=== PATIENT | female | born 1985 | race Caucasian/White ===

== ENCOUNTER 2016-12-08 00:34 | Inpatient (IN) | payer OTHER ==
[2016-12-08 01:16] VITALS: BMI 32.1
--- NOTE | 2016-12-08 02:46 | PDOC ---
History of Present Illness - General Chief Complaint: Edema Stated Complaint: SWOLLEN NECK Time Seen by Provider: 12/08/16 01:24 History Source: Patient Exam Limitations: No Limitations - History of Present Illness Initial Comments: 12/08/16 02:43 Patient is a 31 year old female with hypothyroidism h/o IVDA but medical chart ( patient states does not use drug) c/o right neck swelling x 5 days. States she has a small swelling initially but has been progressively worsened now large and extending to the back now pain sharp continuos, throbbing 9/10 radiating to her right chest. States she has a h/o abscess and thinks that she has an abscess in the neck. She was seen at [facility] 3 days ago and put on Augmentin but has not improved. She reports subjective fever. Denies sob, BORDEN. PMH: as above PSOCHX: IVDA, neg etoh, neg cig ALL: NKDA GENERAL/CONSTITUTIONAL: (+) fever or chills. No weakness. No weight change.] HEAD, EYES, EARS, NOSE AND THROAT: [No change in vision. No ear pain or discharge. No sore throat.] CARDIOVASCULAR: [No chest pain or shortness of breath.] RESPIRATORY: [No cough, wheezing, or hemoptysis.] GASTROINTESTINAL: [No nausea, vomiting, diarrhea or constipation. No rectal bleeding.] GENITOURINARY: [No dysuria, frequency, or change in urination.] MUSCULOSKELETAL: [No joint or muscle swelling or pain. No neck or back pain.] SKIN AND BREASTS: (+) rash (-) easy bruising.] NEUROLOGIC: [No headache, vertigo, loss of consciousness, or loss of sensation.] PSYCHIATRIC: [No depression or anxiety.] ENDOCRINE: [No increased thirst. No abnormal weight change.] HEMATOLOGIC/LYMPHATIC: [No anemia, easy bleeding, or history of blood clots.] ALLERGIC/IMMUNOLOGIC: [No hives or skin allergy. No latex allergy.] GENERAL: [The patient is awake, alert, and fully oriented, in no acute distress. ] HEAD: [Normal with no signs of trauma.] EYES: [Pupils equal, round and reactive to light, extraocular movements intact, sclera anicteric, conjunctiva clear.] ENT: [Ears normal, nares patent, oropharynx clear without exudates. Moist mucous membranes.] NECK: [Normal range of motion, supple without lymphadenopathy, JVD, (+) larger tender firm mass to the right neck superior to the clavicle and 6 cm form the sternal notch. LUNGS: [Breath sounds equal, clear to auscultation bilaterally. No wheezes, and no crackles.] HEART: [Regular rate and rhythm, normal S1 and S2 without murmur, rub.] ABDOMEN: [Soft, nontender, normoactive bowel sounds. No guarding, no rebound. No masses.] EXTREMITIES: [Normal range of motion, no edema. No clubbing or cyanosis. No cords, erythema, or tenderness.] NEUROLOGICAL: [Cranial nerves II through XII grossly intact. Normal speech, normal gait.] PSYCH: [Normal mood, normal affect.] SKIN: [Warm, Dry, normal turgor, (+) track thai on hands (patient states she has itchy rash that makes her scratch and pick her skin) Past History - Past Medical History Allergies/Adverse Reactions: Allergies Allergy/AdvReac Type Severity Reaction Status Date / Time No Known Allergies Allergy Verified 12/08/16 01:10 Home Medications: Ambulatory Orders Amoxicillin/Potassium Clav [Augmentin 875-125 Tablet] 1 each PO DAILY 12/08/16 Anemia: No (only during ) Asthma: Yes Cancer: No Cardiac Disorders: No CVA: No COPD: No CHF: No Dementia: No Diabetes: No GI Disorders: No Disorders: No HTN: No Hypercholesterolemia: No Kidney Stones: No Liver Disease: No Suicide Attempt (Hx): No Seizures: No Thyroid Disease: Yes (hypothyroidism.) - Surgical History Abdominal Surgery: Yes Appendectomy: No Cardiac Surgery: No Cholecystectomy: Yes (01/2013) Lung Surgery: No Neurologic Surgery: No Orthopedic Surgery: No - Reproductive History PID: No - Immunization History Immunization Up to Date: Yes - Psycho/Social/Smoking Cessation Hx Anxiety: No Suicidal Ideation: No Smoking History: Current every day smoker Have you smoked in the past 12 months: Yes Number of Cigarettes Smoked Daily: 10 Cigars Per Day: 0 Information on smoking cessation initiated: No 'Breaking Loose' booklet given: 09/26/14 Hx Alcohol Use: Yes (vodka) Drug/Substance Use Hx: Yes (heroin, ahsan) Substance Use Type: Heroin, Marijuana Hx Substance Use Treatment: Yes () *Physical Exam - Vital Signs Last Vital Signs Temp Pulse Resp BP Pulse Ox 99 F 96 H 18 135/69 100 12/08/16 01:10 12/08/16 01:10 12/08/16 01:10 12/08/16 01:10 12/08/16 01:10 ED Treatment Course - RADIOLOGY Radiology Studies Ordered: Category Date Time Status SOFT TISSUE NECK CT WITH CONTR [CT] Stat CT Scan 12/08/16 01:25 Ordered Medical Decision Making - Medical Decision Making 12/08/16 06:22 Patient is a 31 year old female with hypothyroidism h/o IVDA c/o right neck swelling x 5 days consistent with abscess poss MRSA due to the history. will get labs, ct neck most likely admit Many attempts at a line have been unsuccessful. she states she has had to have anesthesia in the past for line ascess. will endorsed and signs out for anesthesia to for access. *DC/Admit/Observation/Transfer Diagnosis at time of Disposition: Abscess of neck
[2016-12-08] MEDS ORDERED: VANCOMYCIN 1,000 MG in DEXTROSE 5%-WATER - 500 ML IVPB ONE (07:16)
[2016-12-08] MEDS ORDERED: CEFTRIAXONE 1 GM in DEXTROSE 5%-WATER - 50 ML IVPB ONE (07:17)
--- NOTE | 2016-12-08 07:17 | PDOC ---
*Physical Exam - Vital Signs Last Vital Signs Temp Pulse Resp BP Pulse Ox 99 F 96 H 18 135/69 100 12/08/16 01:10 12/08/16 01:10 12/08/16 01:10 12/08/16 01:10 12/08/16 01:10 ED Treatment Course - LABORATORY CBC & Chemistry Diagram: 12/08/16 10:11 12/08/16 08:00 - Medications Given in the ED: ED Medications Discontinued Medications Generic Name Dose Route Start Last Admin Trade Name Jostin PRN Reason Stop Dose Admin Oxycodone/Acetaminophen 1 combo 12/08/16 02:42 12/08/16 02:47 Percocet 5/325 - PO 12/08/16 02:43 1 combo ONCE ONE Administration Medical Decision Making - Medical Decision Making 12/08/16 07:40 Signout received from ERNA Granados. Briefly, this is a 31 year old female with a history of hypothyroidism. She denies drug use, however prior notes document IVDU and there are many track causey on her arms. She complains of a painful area of swelling to the right lower portion of her neck for about 6 days. She was placed on outpatient Augmentin by an outside hospital. She denies fevers/chills. Staff have so far been unable to obtain lab work or IV access. Plan: -Labs including CBC, comp, blood cultures -Empiric Vancomycin/Ceftriaxone -Surgical consultation -Anticipate admission 12/08/16 09:06 WBC 16.4. K is 5.5 but slightly hemolyzed. Urine tox positive for cocaine and opiates. 20g long IV catheter placed under ultrasound guidance left AC. CT soft tissue neck pending. Discussed with Dr. Knowles. 12/08/16 11:[address] Phillip who will attempt u/s-guided aspiration. Accepted for admission by Dr. Kessler. *DC/Admit/Observation/Transfer Diagnosis at time of Disposition: Neck abscess - Discharge Dispostion Admit: Yes
[2016-12-08 08:11] LABS: BASOPHIL 0.7 % (0-2.0); EOSINOPHIL 1.9 % (0-4.5); MCH 26.2 pg (25.7-33.7); MCHC 32.1 g/dl (32.0-36.0); MEAN CELL VOLUME 81.7 fl (80-96); MEAN PLT VOLUME 8.7 fl (7.5-11.1); RDW 14.4 % (11.6-15.6)
[2016-12-08 08:26] LABS: ALBUMIN 2.9 g/dl (3.4-5.0); ALK PHOS 57 U/L (45-117); ANION GAP 6 (8-16); BILIRUBIN,TOTAL 0.4 mg/dL (0.2-1.0); CO2 27 mmol/L (21-32); CREATININE 0.8 mg/dL (0.55-1.02); GLUCOSE,RANDOM 112 mg/dL (74-106); SGPT/ALT 27 U/L (12-78); TOT PROT 7.2 g/dl (6.4-8.2)
[2016-12-08 08:29] LABS: WHITE BLOOD COUNT 16.4 K/mm3 (4.0-10.0)
[2016-12-08 08:32] LABS: SGOT/AST 53 U/L (15-37)
[2016-12-08 09:05] LABS: URINE MARIJUANA THC NEGATIVE ng/ml (CUTOFF=50)
[2016-12-08] MEDS ORDERED: CEFTRIAXONE 50 ML ONE (09:42)
[2016-12-08 10:16] LABS: INR 1.2 (0.82-1.09); PROTHROMBIN TIME (PATIENT) 13.3 SEC (9.98-11.88)
[2016-12-08 10:18] LABS: BASOPHIL 0.7 % (0-2.0); EOSINOPHIL 1.8 % (0-4.5); MCH 26.2 pg (25.7-33.7); MCHC 32.3 g/dl (32.0-36.0); MEAN CELL VOLUME 81.1 fl (80-96); MEAN PLT VOLUME 7.8 fl (7.5-11.1); NEUTROPHILS 73.7 % (42.8-82.8); PLATELET COUNT 336 K/MM3 (134-434); RDW 14.4 % (11.6-15.6)
[2016-12-08] MEDS ORDERED: VANCOMYCIN 1 GRAM (PRE-DOCKED) 250 ML IVPB ONE (11:14)
[2016-12-08] MEDS: SODIUM CHLORIDE 1,000 ML IV SCH ×2 (11:51→15:43)
[2016-12-08] MEDS ORDERED: morphine CARPU-JECT 4 MG/1 ML DISP.SYRIN IVPUSH ONE (12:08)
[2016-12-08] MEDS ORDERED: morphine CARPU-JECT 10 MG/1 ML DISP.SYRIN ONE (12:21)
--- NOTE | 2016-12-08 12:29 | CONSULT ---
Consult Consult Specialty:: General Surgery Referred by:: Jeanette Treviño Reason for Consultation:: R neck abscess - History of Present Illness Chief Complaint: pain, swelling, redness at right supraclavicular area History of Present Illness: 31yo F with asthma, hypothyroidism, h/o IVDA heroin in past and nasal cocaine use on recent suboxone treatment, skipped last one so she could use both 3d ago with effect (skin-popping heroin because she "has no more veins"), though denies ever injecting in neck or chest, noticed pimple above right clavicle about a week ago which she doesn't remember if she tried to squeeze. She developed a lump in that area a few days later, and 3d ago went to [facility] because it had gotten larger, very painful/tender, and she was concerned about an abscess. She states she has had MRSA abscesses in the past. [facility] did not image the area, but told her it was from swollen lymph nodes and Rx Augmentin, which she has been taking bid. She is also using ibuprofen 600mg about daily prn for pain without effect. 3d ago, she snorted cocaine and skin- popped heroin in her anterior left thigh but has not used since then. The lump over her right clavicle is not getting better, but is getting more painful, so she came to our ER. She has had associated subjective f/c last few days, no n/v , no diarrhea, no drainage from the area, a cough productive of dark brown/ green phlegm starting about 5d ago but now getting better, sore throat and neck related directly to the local pain, eating less because of the pain, and headaches and some dizziness. In ER, wbc 13 (16 initially but labs were not reliable), and she is afebrile. The ER could not get IV access for about 10 hours, but did with ultrasound in left antecubital fossa. CT reviewed with radiologist shows an abscess with significant inflammatory changes in the right supraclavicular region extending behind and beneath the clavicle in proximity to vessels, associated with some lymphadenopathy. The largest of several small pockets is ~3cm below skin level. Also reviewed briefly with Dr. Phillip, who is willing to attempt US-guided aspiration of the largest area. ER started antibiotics. She has been NPO at least since arriving. - History Source History Provided By: Patient Limitations to Obtaining History: No Limitations - Past Medical History Pulmonary: Yes: Asthma ...LMP: 09/19/14 ...: No ...: 1 ...Para: 1 Infectious Disease: Yes: MRSA (per pt) Psych: Yes: Addictions (heroin IV in past, recent skin popping; cocaine snorting , 1/2ppd tob; pt states she has had withdrawal symptoms if she does not use), Anxiety, Depression, Other (borderline personality disorder (per pt)) Endocrine: Yes: Hypothyroidism - Past Surgical History Past Surgical History: Yes: Cholecystectomy (laparoscopic, ~4 yrs ago) - Alcohol/Substance Use Hx Alcohol Use: Yes (vodka; pt states infrequent use, last months ago) History of Substance Use: reports: Cocaine (snorted last 3d ago), Heroin (IV in past, skin popping - last 3d ago). denies: Marijuana (denies) Date of Last Use: 12/05/16 (has been on suboxone thru [facility], skipped last one before relapse 3d ago) - Smoking History Smoking history: Current every day smoker Have you smoked in the past 12 months: Yes Aproximately how many cigarettes per day: 10 - Social History History of Recent Travel: No Home Medications - Allergies Allergies/Adverse Reactions: Allergies Allergy/AdvReac Type Severity Reaction Status Date / Time No Known Allergies Allergy Verified 12/08/16 01:10 - Home Medications Home Medications: Ambulatory Orders Albuterol Sulfate Inhaler - [Ventolin Hfa Inhaler -] 1 - 2 puff IH PRN PRN 12/08 Amoxicillin/Potassium Clav [Augmentin 875-125 Tablet] 1 each PO DAILY 12/08/16 Ibuprofen 1 tab PO DAILY PRN 12/08/16 Levothyroxine [Synthroid -] 1 tab PO DAILY 12/08/16 Family Disease History - Family Disease History Family Disease History: Respiratory: Father (asthma, drug overdose ), Other: Father Review of Systems - Review of Systems Constitutional: reports: Chills, Fever (subjective), Loss of Appetite ( partially secondary to pain in right neck) Eyes: denies: Blurred Vision, Recent Change in Vision HENT: reports: Difficult Swallowing (with neck pain), Throat Pain (from neck, not from inside throat) Neck: reports: Lumps (right supraclavicular area - started as small pimple ~1wk ago, bigger few days later), Pain on Movement, Swollen Glands, Tenderness Cardiovascular: denies: Chest Pain, Palpitations Respiratory: reports: Cough (productive, started about 5d ago, getting better), SOB (at times), Wheezing (at times, has not had inhaler to use recently) Gastrointestinal: denies: Abdominal Pain, Constipation, Diarrhea, Nausea, Vomiting Genitourinary: denies: Burning, Dysuria Musculoskeletal: denies: Back Pain, Joint Pain, Muscle Pain Integumentary: reports: Lump (R neck), Pruritis, Other (local redness at skin- pop site L anterior thigh) Neurological: reports: Dizziness, Headache (last few days). denies: Unsteady Gait Hematology/Lymphatic: reports: Swollen Glands (was told at [facility] that R neck was swollen lymph nodes) Psychiatric: reports: Anxiety, Depression, Other (recent breakup) Physical Exam Vital Signs: Vital Signs Temperature 99 F 12/08/16 01:10 Pulse Rate 96 H 12/08/16 01:10 Respiratory Rate 18 12/08/16 01:10 Blood Pressure 135/69 12/08/16 01:10 O2 Sat by Pulse Oximetry (%) 100 12/08/16 01:10 Constitutional: Yes: Well Nourished, No Distress, Calm Eyes: Yes: Conjunctiva Clear, EOM Intact. No: Sclera Icterus HENT: Yes: Atraumatic, Normocephalic Neck: Yes: Trachea Midline, Lymphadenopathy (right-sided), Tenderness (centered at raised, indurated (few cm), mildly erythematous area immediately above right clavicle, but tender up into neck, over bone, and surrounding this toward shoulder and below clavicle as well - pt denies injecting into entire area (has never done so in neck or chest)) Cardiovascular: Yes: Regular Rate and Rhythm. No: Murmur Respiratory: Yes: Regular, CTA Bilaterally. No: Wheezes Gastrointestinal: Yes: Normal Bowel Sounds, Soft. No: Distention, Tenderness ...Rectal Exam: Yes: Deferred Renal/: No: CVA Tenderness - Left, CVA Tenderness - Right Musculoskeletal: No: Back Pain, Joint Swelling Extremities: Yes: Erythema (~quarter-sized spot on L anterior thigh where pt skin-popped heroin 3d ago, mildly tender, not fluctuant; few other scattered nontender spots of previous attempts on hands/R arm; scab on L lower leg, scattered scratch causey on extremities from itching). No: Cyanosis Edema: No Peripheral Pulses WNL: Yes Integumentary: Yes: Erythema (see above), Tattoos, Other (see extremity exam). No: Jaundice Neurological: Yes: Alert, Oriented Psychiatric: Yes: Alert, Oriented Labs: CBCD WBC 13.0 K/mm3 (4.0-10.0) H 12/08/16 10:11 RBC 4.65 M/mm3 (3.60-5.2) 12/08/16 10:11 Hgb 12.2 GM/dL (10.7-15.3) 12/08/16 10:11 Hct 37.7 % (32.4-45.2) 12/08/16 10:11 MCV 81.1 fl (80-96) 12/08/16 10:11 MCHC 32.3 g/dl (32.0-36.0) 12/08/16 10:11 RDW 14.4 % (11.6-15.6) 12/08/16 10:11 Plt Count 336 K/MM3 (134-434) 12/08/16 10:11 MPV 7.8 fl (7.5-11.1) D 12/08/16 10:11 CMP Sodium 134 mmol/L (136-145) L 12/08/16 08:00 Potassium 5.5 mmol/L (3.5-5.1) H D 12/08/16 08:00 Chloride 101 mmol/L (98-107) 12/08/16 08:00 Carbon Dioxide 27 mmol/L (21-32) 12/08/16 08:00 Anion Gap 6 (8-16) L 12/08/16 08:00 BUN 10 mg/dL (7-18) 12/08/16 08:00 Creatinine 0.8 mg/dL (0.55-1.02) 12/08/16 08:00 Creat Clearance w eGFR > 60 (>60) 12/08/16 08:00 Calcium 9.0 mg/dL (8.5-10.1) 12/08/16 08:00 Total Bilirubin 0.4 mg/dL (0.2-1.0) 12/08/16 08:00 AST 53 U/L (15-37) H D 12/08/16 08:00 ALT 27 U/L (12-78) 12/08/16 08:00 Alkaline Phosphatase 57 U/L (45-117) D 12/08/16 08:00 Total Protein 7.2 g/dl (6.4-8.2) 12/08/16 08:00 Albumin 2.9 g/dl (3.4-5.0) L 12/08/16 08:00 INR, PTT INR 1.20 (0.82-1.09) H 12/08/16 09:36 Tox screen + for opiates and cocaine (she had Percocet in ER) Imaging - Results Chest X-ray: Pending Cat Scan: Image Reviewed (with radiology - abscess with possible microabscesses , inflammation, some LAD, mainly behind right clavicle with extension to supraclavicular against bone - largest pocket ~3cm from skin; affected area is adjacent to vessels. IR willing to try US-guided aspiration) Problem List - Problems (1) Cellulitis of neck Assessment/Plan: R supraclavicular cellulitis overlies much deeper abscess extending behind clavicle into perivascular space Vanco, Zosyn to start antibiotics to be admitted to medicine for IV abx Code(s): L03.221 - CELLULITIS OF NECK (2) Abscess of chest wall Assessment/Plan: abscess extends behind clavicle near vessels, associated with LAD and overlying cellulitis, surrounding inflammatory changes admit to medicine for IV antibiotics plan IR for US-guided aspiration with cultures likely will reimage in 2-3 days pending clinical course and culture results to guide abx therapy pt has hx MRSA per her - Vanco/Zosyn to start, abx as per ID anticipated pending course, consider evaluation for endocarditis small spot of cellulitis around injection site in L thigh will likely respond to antibiotics Code(s): L02.213 - CUTANEOUS ABSCESS OF CHEST WALL (3) Asthma Assessment/Plan: would continue albuterol inhaler prn Code(s): J45.909 - UNSPECIFIED ASTHMA, UNCOMPLICATED Qualifiers: Asthma severity: unspecified severity Asthma complication type: uncomplicated Qualified Code(s): J45.909 - Unspecified asthma, uncomplicated (4) Hypothyroid Assessment/Plan: continue home med Code(s): E03.9 - HYPOTHYROIDISM, UNSPECIFIED Qualifiers: Hypothyroidism type: unspecified Qualified Code(s): E03.9 - Hypothyroidism, unspecified (5) Drug abuse and dependence Assessment/Plan: has been in suboxone treatment recently but relapsed receptive to SW intervention for resources and to discuss rehab options pt anticipates possible withdrawal symptoms - would treat acute pain with narcotics and nonnarcotics as needed for effect, then encourage pursuit of rehab on discharge has been on psychiatric meds in past but not recently also requests referral for primary care on discharge - does not want to return to [facility] Code(s): F19.20 - OTHER PSYCHOACTIVE SUBSTANCE DEPENDENCE, UNCOMPLICATED Assessment/Plan Thank you for the opportunity to participate in the care of this patient.
--- NOTE | 2016-12-08 15:19 | CONSULT ---
Consult Consult Specialty:: infectious diseases Reason for Consultation:: neck abscess - History of Present Illness Chief Complaint: pain in the neck swelling of the neck History of Present Illness: 31yo F with asthma, hypothyroidism, h/o IVDA heroin in past and nasal cocaine use on recent suboxone treatment,patient then stopped it couple of days back and then did skin popping with heroine on her legs as she did not have any veins present. patient denies that she has ever tried neck veins she noticed a small swelling on the rt side of the neck above the clavicle about a week back and she went to [facility] couple of days back who was put on augmentin and pain meds.It was painful and tender and was not improving and she was worried about an abscess and patient came to the hospital here she has a history of mrsa abscess patient after coming to the er was seen by surgery and was referred to IR for draiange I was present when IR did the drainage and thick pus came out complete drainage of the pus was not possible because of its consistency patient post procedure is complaining of severe pain no fevers noted - History Source History Provided By: Patient Limitations to Obtaining History: No Limitations - Past Medical History Pulmonary: Yes: Asthma ...LMP: 09/19/14 ...: No Infectious Disease: Yes: MRSA (per pt) Psych: Yes: Addictions (heroin IV in past, recent skin popping; cocaine snorting , 1/2ppd tob; pt states she has had withdrawal symptoms if she does not use), Anxiety, Depression, Other (borderline personality disorder (per pt)) Endocrine: Yes: Hypothyroidism - Past Surgical History Past Surgical History: Yes: Cholecystectomy (laparoscopic, ~4 yrs ago) - Alcohol/Substance Use Hx Alcohol Use: Yes (vodka; pt states infrequent use, last months ago) History of Substance Use: reports: Cocaine (snorted last 3d ago), Heroin (IV in past, skin popping - last 3d ago). denies: Marijuana (denies) Date of Last Use: 12/05/16 (has been on suboxone thru [facility], skipped last one before relapse 3d ago) - Smoking History Smoking history: Current every day smoker Have you smoked in the past 12 months: Yes Aproximately how many cigarettes per day: 10 - Social History History of Recent Travel: No Home Medications - Allergies Allergies/Adverse Reactions: Allergies Allergy/AdvReac Type Severity Reaction Status Date / Time No Known Allergies Allergy Verified 12/08/16 01:10 - Home Medications Home Medications: Ambulatory Orders Albuterol Sulfate Inhaler - [Ventolin Hfa Inhaler -] 1 - 2 puff IH PRN PRN 12/08 Amoxicillin/Potassium Clav [Augmentin 875-125 Tablet] 1 each PO DAILY 12/08/16 Ibuprofen 1 tab PO DAILY PRN 12/08/16 Levothyroxine [Synthroid -] 1 tab PO DAILY 12/08/16 Family Disease History - Family Disease History Family Disease History: Respiratory: Father (asthma, drug overdose ), Other: Father Review of Systems - Review of Systems Constitutional: reports: No Symptoms Eyes: reports: No Symptoms HENT: reports: No Symptoms Neck: reports: Other (swelling on the rt side of the neck tender,painful) Cardiovascular: reports: No Symptoms Respiratory: reports: No Symptoms Gastrointestinal: reports: No Symptoms Genitourinary: reports: No Symptoms Musculoskeletal: reports: No Symptoms Integumentary: reports: Other (Pruritis, Other (local redness at skin-pop site L anterior thigh)) Neurological: reports: No Symptoms Endocrine: reports: No Symptoms Hematology/Lymphatic: reports: No Symptoms Physical Exam Vital Signs: Vital Signs Temperature 99 F 12/08/16 01:10 Pulse Rate 71 12/08/16 13:51 Respiratory Rate 18 12/08/16 13:51 Blood Pressure 112/66 12/08/16 13:51 O2 Sat by Pulse Oximetry (%) 94 L 12/08/16 13:51 Constitutional: Yes: Well Nourished, Calm, Moderate Distress HENT: Yes: Other (swelling over the rt clavicle with pin point) Neck: Yes: Supple, Trachea Midline, Other (paiful movement) Cardiovascular: Yes: Regular Rate and Rhythm Respiratory: Yes: Regular, CTA Bilaterally Gastrointestinal: Yes: Normal Bowel Sounds, Soft Musculoskeletal: Yes: Other Extremities: Yes: Other (Yes: Erythema (~quarter-sized spot on L anterior thigh where pt skin-popped heroin 3d ago, mildly tender, not fluctuant; few other scattered nontender spots of previous attempts on hands/R arm; scab on L lower leg, scattered scratch causey on extremities from itching). No: Cyanosis) Integumentary: Yes: Erythema Wound/Incision: Yes: Other Neurological: Yes: Alert, Oriented Psychiatric: Yes: Alert, Oriented Imaging - Results Chest X-ray: Report Reviewed, Image Reviewed X-ray: Report Reviewed, Image Reviewed Assessment/Plan Problem List - Problems (1) Cellulitis of neck Code(s): L03.221 - CELLULITIS OF NECK (2) Abscess of chest wall small spot of cellulitis around injection site in L thigh will likely respond to antibiotics Code(s): L02.213 - CUTANEOUS ABSCESS OF CHEST WALL (3) Asthma Code(s): J45.909 - UNSPECIFIED ASTHMA, UNCOMPLICATED Qualifiers: Asthma severity: unspecified severity Asthma complication type: uncomplicated Qualified Code(s): J45.909 - Unspecified asthma, uncomplicated (4) Hypothyroid Code(s): E03.9 - HYPOTHYROIDISM, UNSPECIFIED Qualifiers: Hypothyroidism type: unspecified Qualified Code(s): E03.9 - Hypothyroidism, unspecified (5) Drug abuse and dependence Code(s): F19.20 - OTHER PSYCHOACTIVE SUBSTANCE DEPENDENCE, UNCOMPLICATED patients abscess was drained plan will start patient on clinda and zosyn cx results close monitoring if spiking fever or blood cx positive then echo
[2016-12-08] MEDS ORDERED: CLINDAMYCIN 900 MG PREMIX IVPB 50 ML IVPB SCH (15:30)
[2016-12-08] MEDS ORDERED: ACETAMINOPHEN 325 MG TABLET (FP) PO PRN (16:16)
[2016-12-08] MEDS ORDERED: ALBUTEROL SO4 6.7 GM HFA INHALER IH PRN (16:18)
--- NOTE | 2016-12-08 16:25 | HP ---
Admitting History and Physical - Primary Care Physician PCP: Harsh Kessler - Admission History of Present Illness: 31 year old female with hypothyroidism h/o IVDA heroin, coccaine was on suboxone , c/o right neck swelling x 5 days. States she has a small pimple initially but has been progressively worsened now large and extending to the back now pain sharp continuos, throbbing 9/10 radiating to her right chest. States she has a h/o abscess/mrsa and thinks that she has an abscess in the neck, she said she did not inject in the neck. She was seen at [facility] 3 days ago and put on Augmentin but has not improved. - Past Medical History Pulmonary: Yes: Asthma ...LMP: 09/19/14 ...: No ...: 1 ...Para: 1 Infectious Disease: Yes: MRSA (per pt) Psych: Yes: Addictions (heroin IV in past, recent skin popping; cocaine snorting , 1/2ppd tob; pt states she has had withdrawal symptoms if she does not use), Anxiety, Depression, Other (borderline personality disorder (per pt)) Endocrine: Yes: Hypothyroidism - Past Surgical History Past Surgical History: Yes: Cholecystectomy (laparoscopic, ~4 yrs ago) - Smoking History Smoking history: Current every day smoker Have you smoked in the past 12 months: Yes Aproximately how many cigarettes per day: 10 - Alcohol/Substance Use Hx Alcohol Use: Yes (vodka; pt states infrequent use, last months ago) History of Substance Use: reports: Cocaine (snorted last 3d ago), Heroin (IV in past, skin popping - last 3d ago). denies: Marijuana (denies) Date of Last Use: 12/05/16 (has been on suboxone thru [facility], skipped last one before relapse 3d ago) - Social History History of Recent Travel: No Home Medications - Allergies Allergies/Adverse Reactions: Allergies Allergy/AdvReac Type Severity Reaction Status Date / Time No Known Allergies Allergy Verified 12/08/16 01:10 - Home Medications Home Medications: Ambulatory Orders Albuterol Sulfate Inhaler - [Ventolin Hfa Inhaler -] 1 - 2 puff IH PRN PRN 12/08 Amoxicillin/Potassium Clav [Augmentin 875-125 Tablet] 1 each PO DAILY 12/08/16 Ibuprofen 1 tab PO DAILY PRN 12/08/16 Levothyroxine [Synthroid -] 1 tab PO DAILY 12/08/16 Family Disease History - Family Disease History Family Disease History: Respiratory: Father (asthma, drug overdose ), Other: Father Physical Examination Vital Signs: Vital Signs Temperature 99 F 12/08/16 01:10 Pulse Rate 71 12/08/16 13:51 Respiratory Rate 18 12/08/16 13:51 Blood Pressure 112/66 12/08/16 13:51 O2 Sat by Pulse Oximetry (%) 94 L 12/08/16 13:51 HENT: Yes: Other Neck: Yes: Lymphadenopathy, Other (abcess ..s/p aspiration, dressing in place) Cardiovascular: Yes: Regular Rate and Rhythm Respiratory: Yes: CTA Bilaterally Gastrointestinal: Yes: Normal Bowel Sounds Extremities: Yes: WNL Edema: No Peripheral Pulses WNL: Yes Neurological: Yes: Alert, Oriented Imaging - Results Cat Scan: Report Reviewed Problem List - Problems (1) Cellulitis of neck Assessment/Plan: iv abx s/p aspiration id on board Code(s): L03.221 - CELLULITIS OF NECK (2) Neck abscess Code(s): L02.11 - CUTANEOUS ABSCESS OF NECK (3) Polysubstance dependence including opioid type drug with complication, episodic abuse Code(s): F11.229 - OPIOID DEPENDENCE WITH INTOXICATION, UNSPECIFIED (4) Asthma Assessment/Plan: stable Code(s): J45.909 - UNSPECIFIED ASTHMA, UNCOMPLICATED Qualifiers: Asthma severity: unspecified severity Asthma complication type: uncomplicated Qualified Code(s): J45.909 - Unspecified asthma, uncomplicated (5) Hypothyroid Assessment/Plan: on meds stable Code(s): E03.9 - HYPOTHYROIDISM, UNSPECIFIED Qualifiers: Hypothyroidism type: unspecified Qualified Code(s): E03.9 - Hypothyroidism, unspecified (6) IV drug abuse Code(s): F19.10 - OTHER PSYCHOACTIVE SUBSTANCE ABUSE, UNCOMPLICATED (7) Alcohol dependence Code(s): F10.20 - ALCOHOL DEPENDENCE, UNCOMPLICATED (8) Cocaine dependence Code(s): F14.20 - COCAINE DEPENDENCE, UNCOMPLICATED Assessment/Plan Laboratory Tests 12/08/16 12/08/16 12/08/16 08:00 08:00 08:00 WBC 16.4 H D RBC 4.60 Hgb 12.1 Hct 37.6 MCV 81.7 MCH 26.2 MCHC 32.1 RDW 14.4 Plt Count No Result Required. MPV 8.7 D Neutrophils % 72.0 Lymphocytes % 16.7 Monocytes % 8.7 Eosinophils % 1.9 D Basophils % 0.7 D INR Cancelled Sodium 134 L Potassium 5.5 H D Chloride 101 Carbon Dioxide 27 Anion Gap 6 L BUN 10 Creatinine 0.8 Creat Clearance w eGFR > 60 Random Glucose 112 H Calcium 9.0 Total Bilirubin 0.4 AST 53 H D ALT 27 Alkaline Phosphatase 57 D Total Protein 7.2 Albumin 2.9 L Beta HCG, Quant < 1.0 Serum , Qual Opiates Screen Methadone Screen Barbiturate Screen Phencyclidine Screen Ur Amphetamines Screen MDMA (Ecstasy) Screen Benzodiazepines Screen Cocaine Screen U Marijuana (THC) Screen Blood Type Antibody Screen 12/08/16 12/08/16 12/08/16 08:34 09:34 09:36 WBC RBC Hgb Hct MCV MCH MCHC RDW Plt Count MPV Neutrophils % Lymphocytes % Monocytes % Eosinophils % Basophils % INR Sodium Potassium Chloride Carbon Dioxide Anion Gap BUN Creatinine Creat Clearance w eGFR Random Glucose Calcium Total Bilirubin AST ALT Alkaline Phosphatase Total Protein Albumin Beta HCG, Quant Serum , Qual Negative Opiates Screen Positive Methadone Screen Negative Barbiturate Screen Negative Phencyclidine Screen Negative Ur Amphetamines Screen Negative MDMA (Ecstasy) Screen Negative Benzodiazepines Screen Negative Cocaine Screen Positive U Marijuana (THC) Screen Negative Blood Type O POSITIVE Antibody Screen Negative 12/08/16 12/08/16 09:36 10:11 WBC 13.0 H RBC 4.65 Hgb 12.2 Hct 37.7 MCV 81.1 MCH 26.2 MCHC 32.3 RDW 14.4 Plt Count 336 MPV 7.8 D Neutrophils % 73.7 Lymphocytes % 15.2 Monocytes % 8.6 Eosinophils % 1.8 Basophils % 0.7 INR 1.20 H Sodium Potassium Chloride Carbon Dioxide Anion Gap BUN Creatinine Creat Clearance w eGFR Random Glucose Calcium Total Bilirubin AST ALT Alkaline Phosphatase Total Protein Albumin Beta HCG, Quant Serum , Qual Opiates Screen Methadone Screen Barbiturate Screen Phencyclidine Screen Ur Amphetamines Screen MDMA (Ecstasy) Screen Benzodiazepines Screen Cocaine Screen U Marijuana (THC) Screen Blood Type Antibody Screen Active Medications Generic Name Dose Route Start Last Admin Trade Name Freq PRN Reason Stop Dose Admin Acetaminophen 650 mg 12/08/16 16:16 Tylenol - PO Q6H PRN FEVER OR PAIN Albuterol Sulfate 2 puff 12/08/16 16:18 Ventolin Hfa Inhaler - IH Q4H PRN SHORT OF BREATH/WHEEZING Heparin Sodium (Porcine) 5,000 unit 12/08/16 22:00 Heparin - SQ BID TRE Hydromorphone HCl 1 mg 12/08/16 16:15 Dilaudid Injection - IVPB Q3H PRN PAIN Sodium Chloride 1,000 mls @ 83 mls/hr 12/08/16 09:45 12/08/16 15:43 Normal Saline - IV 83 mls/hr ASDIR TRE Administration Clindamycin Phosphate 50 mls @ 100 mls/hr 12/08/16 15:30 Cleocin 900 Mg Premix Ivpb - IVPB Q8H-IV TRE Piperacillin Sod/Tazobactam 100 mls @ 200 mls/hr 12/08/16 15:30 Sod 4.5 gm/ Dextrose IVPB Q8H-IV TRE Protocol Levothyroxine Sodium mcg 12/08/16 16:30 Synthroid - PO DAILY TRE
[2016-12-08] MEDS ORDERED: DEXTROSE 5%-WATER 100 ML IVPB ONE ×3 (16:42→23:33)
[2016-12-08] MEDS ORDERED: PIPERACILLIN/TAZOBACTAM 4.5 GM VIAL IVPB ONE ×4 (16:42→23:33)
[2016-12-08] MEDS: HYDROmorphone HCL CARPU-JECT 1 MG/1 ML DISP.SYRIN IVPB PRN ×2 (16:44→22:07)
[2016-12-08] MEDS: PIPERACILLIN/TAZOB 4.5 GM 4.5 GM in DEXTROSE 5%-WATER 100 ML IVPB SCH ×2 (16:55→19:37)
[2016-12-08] MEDS: LEVOTHYROXINE NA 112 MCG TABLET (FP) PO SCH (16:58)
[2016-12-08] MEDS: CLINDAMYCIN 900 MG PREMIX IVPB 50 ML IVPB SCH (22:08)
[2016-12-08] MEDS: HEPARIN NA (PORCINE) 5,000 UNITS/ML 1ML VIAL SQ SCH (22:09)
[2016-12-09] MEDS: PIPERACILLIN/TAZOB 4.5 GM 4.5 GM in DEXTROSE 5%-WATER 100 ML IVPB SCH ×3 (01:05→18:17)
[2016-12-09] MEDS: HYDROmorphone HCL CARPU-JECT 1 MG/1 ML DISP.SYRIN IVPB PRN ×5 (01:37→20:00)
[2016-12-09] MEDS: CLINDAMYCIN 900 MG PREMIX IVPB 50 ML IVPB SCH ×2 (02:35→09:32)
[2016-12-09] MEDS: LEVOTHYROXINE NA 112 MCG TABLET (FP) PO SCH (06:44)
[2016-12-09] MEDS ORDERED: PIPERACILLIN/TAZOBACTAM 4.5 GM VIAL IVPB ONE ×2 (09:26→17:22)
[2016-12-09] MEDS ORDERED: DEXTROSE 5%-WATER 100 ML IVPB ONE ×2 (09:26→17:22)
[2016-12-09] MEDS: HEPARIN NA (PORCINE) 5,000 UNITS/ML 1ML VIAL SQ SCH ×2 (09:32→21:01)
[2016-12-09] MEDS: SODIUM CHLORIDE 1,000 ML IV SCH (12:01)
--- NOTE | 2016-12-09 12:51 | PN ---
Progress Note, Physician History of Present Illness: main complaint is pain patient has neck pain rest she is feeling better no new issues has been afebrile wbc trending down - Current Medication List Current Medications: Active Medications Acetaminophen (Tylenol -) 650 mg PO Q6H PRN PRN Reason: FEVER OR PAIN Albuterol Sulfate (Ventolin Hfa Inhaler -) 2 puff IH Q4H PRN PRN Reason: SHORT OF BREATH/WHEEZING Heparin Sodium (Porcine) (Heparin -) 5,000 unit SQ BID [facility] Last Admin: 12/09/16 09:32 Dose: 5,000 unit Hydromorphone HCl (Dilaudid Injection -) 1 mg IVPB Q3H PRN PRN Reason: PAIN Last Admin: 12/09/16 10:16 Dose: 1 mg Sodium Chloride (Normal Saline -) 1,000 mls @ 83 mls/hr IV ASDIR [facility] Last Admin: 12/09/16 12:01 Dose: 83 mls/hr Piperacillin Sod/Tazobactam (Sod 4.5 gm/ Dextrose) 100 mls @ 200 mls/hr IVPB Q8H-IV TRE PRN Reason: Protocol Last Admin: 12/09/16 09:32 Dose: 200 mls/hr Clindamycin Phosphate (Cleocin 900 Mg Premix Ivpb -) 50 mls @ 100 mls/hr IVPB Q8H-IV TRE Last Admin: 12/09/16 09:32 Dose: 100 mls/hr Levothyroxine Sodium (Synthroid -) 112 mcg PO DAILY@0700 [facility] Last Admin: 12/09/16 06:44 Dose: 112 mcg - Objective Vital Signs: Vital Signs Temperature 98.8 F 12/09/16 11:40 Pulse Rate 100 H 12/09/16 11:40 Respiratory Rate 20 12/09/16 11:40 Blood Pressure 104/64 12/09/16 11:40 O2 Sat by Pulse Oximetry (%) 95 12/09/16 09:00 Constitutional: Yes: Calm, Mild Distress Cardiovascular: Yes: Regular Rate and Rhythm Respiratory: Yes: Regular, CTA Bilaterally Gastrointestinal: Yes: Normal Bowel Sounds, Soft Musculoskeletal: Yes: Other Extremities: Yes: Other Neurological: Yes: Alert, Oriented Psychiatric: Yes: Alert, Oriented Labs: INR, PTT INR 1.20 (0.82-1.09) H 12/08/16 09:36 Assessment/Plan Problem List - Problems (1) Cellulitis of neck Code(s): L03.221 - CELLULITIS OF NECK (2) Abscess of chest wall small spot of cellulitis around injection site in L thigh will likely respond to antibiotics Code(s): L02.213 - CUTANEOUS ABSCESS OF CHEST WALL (3) Asthma Code(s): J45.909 - UNSPECIFIED ASTHMA, UNCOMPLICATED Qualifiers: Asthma severity: unspecified severity Asthma complication type: uncomplicated Qualified Code(s): J45.909 - Unspecified asthma, uncomplicated (4) Hypothyroid Code(s): E03.9 - HYPOTHYROIDISM, UNSPECIFIED Qualifiers: Hypothyroidism type: unspecified Qualified Code(s): E03.9 - Hypothyroidism, unspecified (5) Drug abuse and dependence Code(s): F19.20 - OTHER PSYCHOACTIVE SUBSTANCE DEPENDENCE, UNCOMPLICATED leukocytosis plan continue abx await for cx reports rest as per primary
--- NOTE | 2016-12-09 14:24 | PN ---
Progress Note, Physician - Current Medication List Current Medications: Active Medications Acetaminophen (Tylenol -) 650 mg PO Q6H PRN PRN Reason: FEVER OR PAIN Albuterol Sulfate (Ventolin Hfa Inhaler -) 2 puff IH Q4H PRN PRN Reason: SHORT OF BREATH/WHEEZING Heparin Sodium (Porcine) (Heparin -) 5,000 unit SQ BID TRE Last Admin: 12/09/16 09:32 Dose: 5,000 unit Hydromorphone HCl (Dilaudid Injection -) 1 mg IVPB Q3H PRN PRN Reason: PAIN Last Admin: 12/09/16 10:16 Dose: 1 mg Sodium Chloride (Normal Saline -) 1,000 mls @ 83 mls/hr IV ASDIR TRE Last Admin: 12/09/16 12:01 Dose: 83 mls/hr Piperacillin Sod/Tazobactam (Sod 4.5 gm/ Dextrose) 100 mls @ 200 mls/hr IVPB Q8H-IV TRE PRN Reason: Protocol Last Admin: 12/09/16 09:32 Dose: 200 mls/hr Clindamycin Phosphate (Cleocin 900 Mg Premix Ivpb -) 50 mls @ 100 mls/hr IVPB Q8H-IV TRE Last Admin: 12/09/16 09:32 Dose: 100 mls/hr Levothyroxine Sodium (Synthroid -) 112 mcg PO DAILY@0700 [facility] Last Admin: 12/09/16 06:44 Dose: 112 mcg - Objective Vital Signs: Vital Signs Temperature 98.8 F 12/09/16 11:40 Pulse Rate 100 H 12/09/16 11:40 Respiratory Rate 20 12/09/16 11:40 Blood Pressure 104/64 12/09/16 11:40 O2 Sat by Pulse Oximetry (%) 95 12/09/16 09:00 Constitutional: Yes: No Distress HENT: Yes: Atraumatic Neck: Yes: Other (s/p i and d of abcess dressing in place) Cardiovascular: Yes: Regular Rate and Rhythm Respiratory: Yes: CTA Bilaterally Gastrointestinal: Yes: Normal Bowel Sounds Extremities: Yes: WNL Neurological: Yes: Alert, Oriented Labs: INR, PTT INR 1.20 (0.82-1.09) H 12/08/16 09:36 Problem List - Problems (1) Cellulitis of neck Assessment/Plan: iv abx s/p aspiration id on board Code(s): L03.221 - CELLULITIS OF NECK (2) Neck abscess Code(s): L02.11 - CUTANEOUS ABSCESS OF NECK (3) Polysubstance dependence including opioid type drug with complication, episodic abuse Code(s): F11.229 - OPIOID DEPENDENCE WITH INTOXICATION, UNSPECIFIED (4) Asthma Assessment/Plan: stable Code(s): J45.909 - UNSPECIFIED ASTHMA, UNCOMPLICATED Qualifiers: Asthma severity: unspecified severity Asthma complication type: uncomplicated Qualified Code(s): J45.909 - Unspecified asthma, uncomplicated (5) Hypothyroid Assessment/Plan: on meds stable Code(s): E03.9 - HYPOTHYROIDISM, UNSPECIFIED Qualifiers: Hypothyroidism type: unspecified Qualified Code(s): E03.9 - Hypothyroidism, unspecified (6) IV drug abuse Code(s): F19.10 - OTHER PSYCHOACTIVE SUBSTANCE ABUSE, UNCOMPLICATED (7) Alcohol dependence Code(s): F10.20 - ALCOHOL DEPENDENCE, UNCOMPLICATED (8) Cocaine dependence Code(s): F14.20 - COCAINE DEPENDENCE, UNCOMPLICATED
[2016-12-09] MEDS: CLINDAMYCIN 300 MG PREMIX IVPB 50 ML IVPB SCH (18:17)
[2016-12-10] MEDS: CLINDAMYCIN 300 MG PREMIX IVPB 50 ML IVPB SCH ×2 (01:03→11:00)
[2016-12-10] MEDS: PIPERACILLIN/TAZOB 4.5 GM 4.5 GM in DEXTROSE 5%-WATER 100 ML IVPB SCH ×2 (01:04→11:00)
[2016-12-10 05:55] VITALS: BP 106/49; PULSE 76; TEMP 98.9
[2016-12-10] MEDS: LEVOTHYROXINE NA 112 MCG TABLET (FP) PO SCH (06:01)
[2016-12-10] MEDS ORDERED: oxyCODONE HCL 5 MG TABLET PO PRN (09:07)
[2016-12-10] MEDS: HEPARIN NA (PORCINE) 5,000 UNITS/ML 1ML VIAL SQ SCH (11:04)
[2016-12-10] MEDS ORDERED: CLINDAMYCIN HCL 150 MG CAPSULE (FP) PO ONE (11:30)
[2016-12-10] MEDS ORDERED: CLINDAMYCIN HCL 300 MG CAPSULE PO ONE (11:30)
--- NOTE | 2016-12-10 12:10 | PN ---
Progress Note (short form) - Note Progress Note: Pt with right subclavian abscess s/p aspiration by IR 2d ago. Was in bathroom on arrival, stated she has some diarrhea. Visitor waiting in room. Lost IV access overnight and nursing has been unable to regain. Lab was unable to obtain CBC this am yet. She has missed at least 2 doses of antibiotics. She also feels she may be having withdrawal symptoms from her drug use. She has had some emesis and abdominal pain. She was offered oxycodone earlier but declined it. She has been eating and drinking. She feels the lump at right supraclavicular area is slightly larger, but less sensitive to touch. Preliminary culture results show presumptive MRSA. Vital Signs Period Temp Pulse Resp BP Sys/Alarcon Pulse Ox Last 24 Hr 98.3 F-98.9 F 76-84 20-20 96-106/48-50 94-100 PE: A&O somewhat agitated - requests 5 minutes with her visitor prior to blood draw ( phlebotomy arrived) because "he can't stay long" right supraclavicular swelling appears similar to prior, slightly more erythematous, less tender to palpation CBC pending A/P: right subclavian abscess in IVDA, presumed MRSA on antibiotics but without IV access has missed several doses - PO Clindamycin 600mg just ordered by ID stressed need for reestablishing IV access to patient - she is willing to let anesthesia try encouraged pt to take pain meds available to treat pain and minimize withdrawal symptoms Dr. Mims was consulted would consider reimaging in 1-2 days to see if further aspiration/drainage is indicated Problem List - Problems (1) Cellulitis of neck Code(s): L03.221 - CELLULITIS OF NECK (2) Abscess of chest wall Code(s): L02.213 - CUTANEOUS ABSCESS OF CHEST WALL (3) Asthma Code(s): J45.909 - UNSPECIFIED ASTHMA, UNCOMPLICATED Qualifiers: Asthma severity: unspecified severity Asthma complication type: uncomplicated Qualified Code(s): J45.909 - Unspecified asthma, uncomplicated (4) Hypothyroid Code(s): E03.9 - HYPOTHYROIDISM, UNSPECIFIED Qualifiers: Hypothyroidism type: unspecified Qualified Code(s): E03.9 - Hypothyroidism, unspecified (5) Drug abuse and dependence Code(s): F19.20 - OTHER PSYCHOACTIVE SUBSTANCE DEPENDENCE, UNCOMPLICATED
--- NOTE | 2016-12-10 19:01 | DS ---
Physical Examination Vital Signs: Vital Signs Temperature 98.9 F 12/10/16 05:54 Pulse Rate 76 12/10/16 05:54 Respiratory Rate 20 12/10/16 05:54 Blood Pressure 106/49 12/10/16 05:54 O2 Sat by Pulse Oximetry (%) 100 12/10/16 09:00 Discharge Summary Reason For Visit: ABSCESS OF NECK - Instructions Disposition: AGAINST MEDICAL ADVICE - Home Medications Comprehensive Discharge Medication List: Ambulatory Orders Albuterol Sulfate Inhaler - [Ventolin Hfa Inhaler -] 1 - 2 puff IH PRN PRN 12/08 Amoxicillin/Potassium Clav [Augmentin 875-125 Tablet] 1 each PO DAILY 12/08/16 Ibuprofen 1 tab PO DAILY PRN 12/08/16 Levothyroxine [Synthroid -] 1 tab PO DAILY 12/08/16 signed out ama
== END 2016-12-10 11:58 | disposition left against medical advice (07) | DRG 364 ==
LOC: JER 00:34 → JERBED 11:40 → J7W 15:20
PROVIDERS: ADMIT Internal Medicine; ATTEND Internal Medicine
PROC: 0W963ZZ Drainage of Neck, Percutaneous Approach (ICD-10-PCS; principal; 2016-12-08)
DX: L02.11 Cutaneous abscess of neck (principal); E03.9 Hypothyroidism, unspecified; J45.909 Unspecified asthma, uncomplicated; F11.229 Opioid dependence with intoxication, unspecified; L02.213 Cutaneous abscess of chest wall; F14.20 Cocaine dependence, uncomplicated; F17.210 Nicotine dependence, cigarettes, uncomplicated; F41.8 Other specified anxiety disorders; F60.89 Other specific personality disorders; L03.221 Cellulitis of neck; F19.20 Other psychoactive substance dependence, uncomplicated; F10.20 Alcohol dependence, uncomplicated; D72.828 Other elevated white blood cell count; B95.62 Methicillin resistant Staphylococcus aureus infection as the cause of diseases classified elsewhere; E66.9 Obesity, unspecified; Z68.32 Body mass index [BMI] 32.0-32.9, adult
CPT/HCPCS: 36415; 70491-TC; 71010-TC; 76942; 80053; 80307; 84702; 84703; 85025; 85610; 86850; 86900; 86901; 87040; 87070; 87075; 87102; 87116; 87186; 87205; 87206; 87210; 99284-25; J1644

== ENCOUNTER 2017-03-17 18:45 | Inpatient (IN) | payer OTHER ==
[2017-03-17 20:48] VITALS: BMI 32.8
--- NOTE | 2017-03-17 21:09 | HP ---
<Vonda Sargent - Last Filed: 03/19/17 11:37> COWS - Scale Resting Pulse: 1= SD 81-100 Sweatin=Flushed/Facial Moisture Restless Observation: 1= Difficult to Sit Still Pupil Size: 1= Pupils >than Normal Bone or Joint Aches: 4=Acute Joint/Muscle Pain Runny Nose/ Eye Tearin= Runny Nose/Eyes GI Upset > 30mins: 1= Stomach Cramp Tremor Observation: 4= Gross Tremor/Twitching Yawning Observation: 1= 1-2x During Session Anxiety or Irritability: 2=Irritable/Anxious Goose Flesh Skin: 0=Smooth Skin COWS Score: 19 Admission ROS S - HPI Chief Complaint: Opioid withdrawal symptoms Allergies/Adverse Reactions: Allergies Allergy/AdvReac Type Severity Reaction Status Date / Time No Known Allergies Allergy Verified 03/17/17 20:41 History of Present Illness: 31 years old female with a long history of heroin, marijuana, xanax dependence is admitted to detox. Patient has been in previous detox and reports 6 months of sobriety. She reports history of asthma, hypothyroidism and depression. Patient states, " My goal is to stay clean." Exam Limitations: No Limitations - Ebola screening Have you traveled outside of the country in the last 21 days: No Have you had contact with anyone from an Ebola affected area: No Have you been sick,other than usual withdrawal symptoms: No Do you have a fever: No - Review of Systems Constitutional: Chills, Loss of Appetite, Night Sweats, Changes in sleep, Unexplained wgt Loss EENT: reports: Nose Congestion, Sinus Pressure Respiratory: reports: No Symptoms reported Cardiac: reports: No Symptoms Reported GI: reports: Poor Appetite, Poor Fluid Intake, Indigestion, Abdominal cramping : reports: No Symptoms Reported Musculoskeletal: reports: Back Pain, Joint Pain, Muscle Pain, Muscle Weakness Integumentary: reports: Flushing Neuro: reports: Headache, Tingling, Tremors Endocrine: reports: No Symptoms Reported Hematology: reports: No Symptoms Reported, Anemia Psychiatric: reports: Agitated, Anxious, Depressed Other Systems: Reviewed and Negative Patient History - Patient Medical History Hx Anemia: Yes (during ) Hx Asthma: Yes Hx Chronic Obstructive Pulmonary Disease (COPD): No Hx Cancer: No Hx Cardiac Disorders: No Hx Congestive Heart Failure: No Hx Hypertension: No Hx Hypercholesterolemia: No Hx Pacemaker: No HX Cerebrovascular Accident: No Hx Seizures: No Hx Dementia: No Hx Diabetes: No Hx Gastrointestinal Disorders: No Hx Liver Disease: No Hx Genitourinary Disorders: No Hx Sexually Transmitted Disorders: No Hx Renal Disease (ESRD): No Hx Thyroid Disease: Yes (hypothyroidism.) Hx Human Immunodeficiency Virus (HIV): No Hx Hepatitis C: No Hx Depression: Yes Hx Suicide Attempt: No Hx Bipolar Disorder: No Hx Schizophrenia: No - Patient Surgical History Past Surgical History: Yes Hx Neurologic Surgery: No Hx Cataract Extraction: No Hx Cardiac Surgery: No Hx Lung Surgery: No Hx Breast Surgery: No Hx Breast Biopsy: No Hx Abdominal Surgery: Yes Hx Appendectomy: No Hx Cholecystectomy: Yes (01/2013) Hx Genitourinary Surgery: No Hx Section: No Hx Orthopedic Surgery: No Hx Hysterectomy: No Other Surgical History: Bartholin's cyst removed 09/22/14 Anesthesia Reaction: No - PPD History Previous Implant?: Yes Documented Results: Negative w/proof Date: 03/10/14 Results: 0 mm PPD to be Administered?: Yes - Reproductive History Patient is a Female of Child Bearing Age (11 -55 yrs old): Yes Last Menstrual Period: 03/10/17 Patient : No - Smoking Cessation Smoking history: Current every day smoker Have you smoked in the past 12 months: Yes Aproximately how many cigarettes per day: 20 Cigars Per Day: 0 Hx Chewing Tobacco Use: No Initiated information on smoking cessation: Yes 'Breaking Loose' booklet given: 03/17/17 - Substances Abused Alprazolam (Xanax) Route: Oral Frequency: Daily Amount used: 2mg Age of first use: 15 Date of Last Use: 03/16/17 Heroin Route: Injection Frequency: Daily Amount used: 10 Age of first use: 19 Date of Last Use: 03/17/17 Family Disease History - Family Disease History Family Disease History: Respiratory: Father (asthma, drug overdose ), Other: Father Admission Physical Exam [facility] - Vital Signs Vital Signs: Vital Signs - 24 hr 03/17/17 20:42 Temperature 97.6 F Pulse Rate 82 Respiratory 18 Rate Blood Pressure 122/60 - Physical General Appearance: Yes: Moderate Distress, Tremorous, Irritable, Sweating, Anxious HEENTM: Yes: EOMI, Normal ENT Inspection, PIO Respiratory: Yes: Lungs Clear, Normal Breath Sounds, No Respiratory Distress Neck: Yes: Supple, Other (tatoo to right neck) Breast: Yes: Breast Exam Deferred Cardiology: Yes: Regular Rhythm, Regular Rate, S1, S2, Other (tatoo to chest wall) Abdominal: Yes: Normal Bowel Sounds, Soft Genitourinary: Yes: Within Normal Limits Back: Yes: Normal Inspection Musculoskeletal: Yes: Muscle Pain, Muscle weakness Extremities: Yes: Tremors Neurological: Yes: Alert, Normal Response, Depressed Affect Integumentary: Yes: Dry Lymphatic: Yes: Within Normal Limits - Diagnostic (1) Uncomplicated opioid dependence Current Visit: No Status: Chronic (2) Cannabis dependence, uncomplicated Current Visit: No Status: Chronic (3) Sedative, hypnotic or anxiolytic dependence with withdrawal, uncomplicated Current Visit: No Status: Chronic (4) Asthma Current Visit: No Status: Chronic QualifierTitle: Asthma severity: unspecified severity Asthma complication type: uncomplicated (5) GERD (gastroesophageal reflux disease) Current Visit: No Status: Chronic (6) Hypothyroid Current Visit: No Status: Chronic QualifierTitle: Hypothyroidism type: unspecified Qualified Code(s): E03.9 - Hypothyroidism, unspecified (7) Nicotine dependence Current Visit: No Status: Chronic [facility] Breath Alcohol Content Breath Alcohol Content: 0 Urine Pregancy Test - Result Urine Test Results: Negative- NO Line Present Urine Drug Screen - Results Drug Screen Negative: No Urine Drug Screen Results: THC-Marijuana, OPI-Opiates, BZO-Benzodiazepines <Luis Fierro - Last Filed: 03/19/17 14:06> CIWA Score - CIWA Score Nausea/Vomitin Muscle Tremors: 3 Anxiety: 3 Agitation: 3 Paroxysmal Sweats: 3 Orientation: 0-Oriented Tacttile Disturbances: 1-Very Mild Itch/Numbness Auditory Disturbances: 0-None Visual Disturbances: 0-None Headache: 0-None Present CIWA-Ar Total Score: 16 Admission Physical Exam [facility] - Vital Signs Vital Signs: Vital Signs - 24 hr 03/18/17 03/18/17 03/18/17 15:16 17:39 22:49 Temperature 97.6 F 98.4 F 95.6 F L Pulse Rate 88 69 80 Respiratory 18 18 18 Rate Blood Pressure 122/72 93/57 134/73 03/19/17 03/19/17 03/19/17 00:30 03:30 06:00 Temperature 97.9 F Pulse Rate 74 Respiratory 18 18 18 Rate Blood Pressure 101/65 03/19/17 03/19/17 09:33 13:04 Temperature 98.6 F 96.6 F L Pulse Rate 116 H 89 Respiratory 18 18 Rate Blood Pressure 131/84 112/78 - Diagnostic (1) Post-traumatic stress syndrome Current Visit: No Status: Acute (2) Cannabis dependence, uncomplicated Current Visit: No Status: Chronic (3) GERD (gastroesophageal reflux disease) Current Visit: No Status: Chronic (4) Hypothyroid Current Visit: No Status: Chronic Qualifiers: Hypothyroidism type: unspecified Qualified Code(s): E03.9 - Hypothyroidism , unspecified (5) Nicotine dependence Current Visit: No Status: Chronic (6) Sedative, hypnotic or anxiolytic dependence with withdrawal, uncomplicated Current Visit: No Status: Chronic (7) Withdrawal symptoms, drug or narcotic Current Visit: No Status: Acute (8) Opioid dependence with withdrawal Current Visit: Yes Status: Acute Cleared for Admission S - Detox or Rehab S Level of Care: Medically Managed Detox Regimen/Protocol: Methadone/Valium
[2017-03-17] MEDS ORDERED: METHADONE HCL 10 MG TABLET (FOR DETOX USE ONLY) PO ONE ×2 (21:22→23:00)
[2017-03-17] MEDS ORDERED: guaiFENesin/D-METHORPHAN HB 10 ML UNIT-DOSE CUPS PO PRN (21:22)
[2017-03-17] MEDS ORDERED: MAGNESIUM CITRATE 300 ML BOTTLE PO PRN (21:22)
[2017-03-17] MEDS ORDERED: MAGNESIUM HYDROX 2400MG/30ML ORAL SUSPENSION 30 ML CUP PO PRN (21:22)
[2017-03-17] MEDS ORDERED: diazePAM 5 MG TABLET PO PRN (21:22)
[2017-03-17] MEDS ORDERED: MENTHOL/PHENOL 1 EACH UD MM PRN (21:22)
[2017-03-17] MEDS ORDERED: NICOTINE POLACRILEX 2 MG GUM BC PRN (21:22)
[2017-03-17] MEDS ORDERED: MAG HYDROX/AL HYDROX/SIMETH 30 ML UNIT-DOSE CUP PO PRN (21:22)
[2017-03-17] MEDS ORDERED: P-EPHED 60MG/TRIPROLIDI 2.5MG TABLET PO PRN (21:22)
[2017-03-17] MEDS ORDERED: ACETAMINOPHEN 325 MG TABLET (FP) PO PRN (21:22)
[2017-03-17] MEDS ORDERED: LOPERAMIDE HCL 2 MG CAPSULE PO PRN (21:22)
[2017-03-17] MEDS ORDERED: IBUPROFEN 400 MG TABLET (FP) PO PRN (21:22)
[2017-03-17] MEDS ORDERED: ALBUTEROL SO4 18 GM HFA INHALER IH PRN (21:25)
[2017-03-17] MEDS: THIAMINE HCL 100 MG TABLET (FP) PO SCH (22:43)
--- NOTE | 2017-03-18 07:42 | CONSULT ---
[facility] Psychiatric Consult - Data Date of interview: 03/18/17 Admission source: [facility] Identifying data: This is 31 years old female with psychiatric hospitalization history, intoxicated with: Opioids, Cannabis, Xanax and Nicotine Substance Abuse History: Smoking history: Current every day smoker. Have you smoked in the past 12 months: Yes. Aproximately how many cigarettes per day: 20. Cigars Per Day: 0. Hx Chewing Tobacco Use: No. Initiated information on smoking cessation: Yes. 'Breaking Loose' booklet given: 03/17/17. - Substances Abused. Alprazolam (Xanax). Route: Oral. Frequency: Daily. Amount used: 2mg. Age of first use: 15. Date of Last Use: 03/16/17. Heroin. Route: Injection. Frequency: Daily. Amount used: 10. Age of first use: 19. Date of Last Use: 03/17/17 Medical History: Asthma, GERD, Thyroid issues history Psychiatric History: Patient reports no psychiatric medications taking prior to admission Physical/Sexual Abuse/Trauma History: Denies Additional Comment: Observation. Detox Unit Care Protocol Mental Status Exam - Mental Status Exam Alert and Oriented to: Person Cognitive Function: Fair Patient Appearance: Unkempt Mood: Sad Affect: Flat Patient Behavior: Sedated Speech Pattern: Delayed Voice Loudness: Normal Thought Process: Goal Oriented Thought Disorder: Being Controlled Hallucinations: Denies Suicidal Ideation: Denies Homicidal Ideation: Denies Insight/Judgement: Fair Sleep: Difficulty falling asleep Appetite: Fair Muscle strength/Tone: Normal Gait/Station: Normal Additional Comments: Observation. Detox Unit Care Protocol Psychiatric Findings - Problem List ([place] 1, 2,3) (1) Opioid dependence with withdrawal Current Visit: Yes Status: Acute (2) Alcohol abuse Current Visit: No Status: Acute (3) Cellulitis Current Visit: No Status: Acute (4) Drug abuse and dependence Current Visit: No Status: Acute (5) Klonopin use disorder, mild Current Visit: No Status: Acute (6) Opioid dependence Current Visit: No Status: Acute (7) Polysubstance dependence including opioid type drug with complication, episodic abuse Current Visit: No Status: Acute (8) Post-traumatic stress syndrome Current Visit: No Status: Acute (9) Alcohol dependence Current Visit: No Status: Chronic (10) Cannabis abuse Current Visit: No Status: Chronic (11) Cannabis dependence, uncomplicated Current Visit: No Status: Chronic (12) Cocaine dependence Current Visit: No Status: Chronic (13) PCP abuse Current Visit: No Status: Chronic (14) Sedative, hypnotic or anxiolytic dependence with withdrawal, uncomplicated Current Visit: No Status: Chronic (15) Uncomplicated opioid dependence Current Visit: No Status: Chronic - Initial Treatment Plan Initial Treatment Plan: Observation. Detox Unit Care Protocol
[2017-03-18] MEDS ORDERED: diazePAM 5 MG TABLET PO ONE (09:39)
[2017-03-18] MEDS ORDERED: ONDANSETRON *ODT* 4 MG TABLET SL PRN (09:41)
[2017-03-18] MEDS ORDERED: ONDANSETRON *ODT* 4 MG TABLET SL ONE (09:41)
[2017-03-18] MEDS ORDERED: METHADONE HCL 10 MG TABLET (FOR DETOX USE ONLY) PO ONE (10:00)
[2017-03-18] MEDS: NICOTINE 14 MG/24 HOURS TOPICAL PATCH TD SCH (10:13)
[2017-03-18] MEDS: PRENATAL VITAMINS W/ FOLIC ACID TABLET (FP) PO SCH (10:13)
[2017-03-18] MEDS: cloNIDine HCL 0.1 MG TABLET PO SCH ×3 (10:15→22:09)
--- NOTE | 2017-03-18 10:32 | EKG ---
Test Reason : Blood Pressure : / mmHG Vent. Rate : 067 BPM Atrial Rate : 067 BPM P-R Int : 128 ms QRS Dur : 086 ms QT Int : 410 ms P-R-T Axes : 010 045 023 degrees QTc Int : 433 ms NORMAL SINUS RHYTHM WITH SINUS ARRHYTHMIA NORMAL ECG WHEN COMPARED WITH ECG OF 28-SEP-2014 16:52, NO SIGNIFICANT CHANGE WAS FOUND Confirmed by HATTIE CULP MD ([id number]) on 03/18/2017 10:32:14 AM Referred By: Confirmed By:HATTIE CULP MD
[2017-03-18 11:10] LABS: MCH 26.2 pg (25.7-33.7); MCHC 32.5 g/dl (32.0-36.0); MEAN CELL VOLUME 80.6 fl (80-96); MEAN PLT VOLUME 7.9 fl (7.5-11.1); PLATELET COUNT 234 K/MM3 (134-434); RDW 18.1 % (11.6-15.6); WHITE BLOOD COUNT 6.9 K/mm3 (4.0-10.0)
[2017-03-18 11:32] LABS: ALBUMIN 3.2 g/dl (3.4-5.0); ALK PHOS 47 U/L (45-117); ANION GAP 4 (8-16); BILIRUBIN,TOTAL 0.3 mg/dL (0.2-1.0); CALCIUM 8.7 mg/dL (8.5-10.1); CO2 27 mmol/L (21-32); CREATININE 0.6 mg/dL (0.55-1.02); GLUCOSE,RANDOM 95 mg/dL (74-106); SGOT/AST 12 U/L (15-37); SGPT/ALT 20 U/L (12-78); TOT PROT 6.3 g/dl (6.4-8.2)
[2017-03-18] MEDS: diazePAM 5 MG TABLET PO SCH ×3 (14:14→22:09)
[2017-03-18] MEDS: LEVOTHYROXINE NA 112 MCG TABLET (FP) PO SCH (15:27)
[2017-03-18 17:23] LABS: URINE APPEARANCE CLOUDY; URINE BILIRUBIN NEGATIVE (NEGATIVE); URINE BLOOD NEGATIVE (NEGATIVE); URINE COLOR YELLOW; URINE GLUCOSE (UA) NEGATIVE (NEGATIVE); URINE KETONE NEGATIVE (NEGATIVE); URINE LEUK ESTERASE TRACE (NEGATIVE); URINE NITRITE NEGATIVE (NEGATIVE); URINE PROTEIN NEGATIVE (NEGATIVE); URINE UROBILINOGEN NEGATIVE mg/dL (0.2-1.0)
--- NOTE | 2017-03-18 17:36 | PN ---
S CIWA - CIWA Score Nausea/Vomitin Muscle Tremors: 3 Anxiety: 3 Agitation: 3 Paroxysmal Sweats: 3 Orientation: 0-Oriented Tacttile Disturbances: 0-None Auditory Disturbances: 0-None Visual Disturbances: 0-None Headache: 0-None Present CIWA-Ar Total Score: 15 [facility] COWS - Scale Resting Pulse: 2= [place] 101-120 Sweatin= Chills/Flushing Restless Observation: 1= Difficult to Sit Still Pupil Size: 1= Pupils >than Normal Bone or Joint Aches: 1= Mild Discomfort Runny Nose/ Eye Tearin= Nasal Congestion GI Upset > 30mins: 2= Nausea/Diarrhea Tremor Observation of Outstretched Hands: 2= Slight Tremor Visible Yawning Observation: 1= 1-2x During Session Anxiety or Irritability: 2=Irritable/Anxious Goose Flesh Skin: 3=Piloerection COWS Score: 17 S Progress Note (SOAP) Subjective: nausea, sweats, interrupted sleep, anxiety, tremors Objective: 03/18/17 17:35 Vital Signs - 24 hr 03/17/17 03/17/17 03/18/17 20:42 22:48 03:30 Temperature 97.6 F 98.6 F Pulse Rate 82 79 Respiratory 18 18 18 Rate Blood Pressure 122/60 129/74 03/18/17 03/18/17 03/18/17 06:08 10:01 15:16 Temperature 98.1 F 98.1 F 97.6 F Pulse Rate 71 102 H 88 Respiratory 18 20 18 Rate Blood Pressure 147/84 127/48 122/72 Laboratory Tests 03/18/17 03/18/17 03/18/17 07:00 07:00 15:00 WBC 6.9 D RBC 4.45 Hgb 11.6 Hct 35.9 MCV 80.6 MCH 26.2 MCHC 32.5 RDW 18.1 H D Plt Count 234 D MPV 7.9 Sodium 137 Potassium 4.1 D Chloride 106 Carbon Dioxide 27 Anion Gap 4 L BUN 13 D Creatinine 0.6 D Creat Clearance w eGFR > 60 Random Glucose 95 Calcium 8.7 Total Bilirubin 0.3 D AST 12 L D ALT 20 D Alkaline Phosphatase 47 Total Protein 6.3 L Albumin 3.2 L Urine Color Yellow Urine Appearance Cloudy Urine pH 8.0 Ur Specific [place] 1.015 Urine Protein Negative Urine Glucose (UA) Negative Urine Ketones Negative Urine Blood Negative Urine Nitrite Negative Urine Bilirubin Negative Urine Urobilinogen Negative Assessment: 03/18/17 17:36 [email or web address] sx, cont detox, fluids
[2017-03-18 18:04] LABS: URINE BACTERIA RARE /hpf (NONE SEEN); URINE RBC <1 /hpf (0-3); URINE WBC 4 /hpf (3-5)
[2017-03-18 20:12] LABS: URINE LEUK ESTERASE Negative (NEGATIVE)
[2017-03-18] MEDS: hydrOXYzine PAMOATE 50 MG CAPSULE (FP) PO PRN (22:09)
[2017-03-18] MEDS: THIAMINE HCL 100 MG TABLET (FP) PO SCH (22:09)
[2017-03-19] MEDS: diazePAM 5 MG TABLET PO SCH ×3 (05:23→22:09)
[2017-03-19] MEDS: LEVOTHYROXINE NA 112 MCG TABLET (FP) PO SCH (06:15)
[2017-03-19] MEDS ORDERED: METHADONE HCL 5 MG TABLET (FOR DETOX USE ONLY) PO ONE (10:00)
[2017-03-19] MEDS: PRENATAL VITAMINS W/ FOLIC ACID TABLET (FP) PO SCH (10:08)
[2017-03-19] MEDS: cloNIDine HCL 0.1 MG TABLET PO SCH ×2 (10:08→22:09)
[2017-03-19] MEDS: NICOTINE 14 MG/24 HOURS TOPICAL PATCH TD SCH (10:09)
[2017-03-19] MEDS: diazePAM 5 MG TABLET PO PRN ×2 (10:11→19:03)
--- NOTE | 2017-03-19 11:27 | PN ---
[facility] CIWA - CIWA Score Nausea/Vomitin-No Nausea/No Vomiting Muscle Tremors: 4-Moderate,w/Arms Extend Anxiety: 4-Mod. Anxious/Guarded Agitation: 4-Moderately Restless Paroxysmal Sweats: 3 Orientation: 0-Oriented Tacttile Disturbances: 0-None Auditory Disturbances: 0-None Visual Disturbances: 0-None Headache: 0-None Present CIWA-Ar Total Score: 15 S COWS - Scale Resting Pulse: 2= [place] 101-120 Sweatin=Flushed/Facial Moisture Restless Observation: 1= Difficult to Sit Still Pupil Size: 1= Pupils >than Normal Bone or Joint Aches: 4=Acute Joint/Muscle Pain Runny Nose/ Eye Tearin= Nasal Congestion GI Upset > 30mins: 1= Stomach Cramp Tremor Observation of Outstretched Hands: 4= Gross Tremor/Twitching Yawning Observation: 0= None Anxiety or Irritability: 2=Irritable/Anxious Goose Flesh Skin: 0=Smooth Skin COWS Score: 18 [facility] Progress Note (SOAP) Subjective: restless, agitation, diarrhea, shakes, night sweats, malaise Objective: 03/19/17 11:29 Vital Signs Temperature 98.6 F 03/19/17 09:33 Pulse Rate 116 H 03/19/17 09:33 Respiratory Rate 18 03/19/17 09:33 Blood Pressure 131/84 03/19/17 09:33 O2 Sat by Pulse Oximetry (%) Laboratory Last Values WBC 6.9 K/mm3 (4.0-10.0) D 03/18/17 07:00 RBC 4.45 M/mm3 (3.60-5.2) 03/18/17 07:00 Hgb 11.6 GM/dL (10.7-15.3) 03/18/17 07:00 Hct 35.9 % (32.4-45.2) 03/18/17 07:00 MCV 80.6 fl (80-96) 03/18/17 07:00 MCH 26.2 pg (25.7-33.7) 03/18/17 07:00 MCHC 32.5 g/dl (32.0-36.0) 03/18/17 07:00 RDW 18.1 % (11.6-15.6) H D 03/18/17 07:00 Plt Count 234 K/MM3 (134-434) D 03/18/17 07:00 MPV 7.9 fl (7.5-11.1) 03/18/17 07:00 Sodium 137 mmol/L (136-145) 03/18/17 07:00 Potassium 4.1 mmol/L (3.5-5.1) D 03/18/17 07:00 Chloride 106 mmol/L (98-107) 03/18/17 07:00 Carbon Dioxide 27 mmol/L (21-32) 03/18/17 07:00 Anion Gap 4 (8-16) L 03/18/17 07:00 BUN 13 mg/dL (7-18) D 03/18/17 07:00 Creatinine 0.6 mg/dL (0.55-1.02) D 03/18/17 07:00 Creat Clearance w eGFR > 60 (>60) 03/18/17 07:00 Random Glucose 95 mg/dL (74-106) 03/18/17 07:00 Calcium 8.7 mg/dL (8.5-10.1) 03/18/17 07:00 Total Bilirubin 0.3 mg/dL (0.2-1.0) D 03/18/17 07:00 AST 12 U/L (15-37) L D 03/18/17 07:00 ALT 20 U/L (12-78) D 03/18/17 07:00 Alkaline Phosphatase 47 U/L (45-117) 03/18/17 07:00 Total Protein 6.3 g/dl (6.4-8.2) L 03/18/17 07:00 Albumin 3.2 g/dl (3.4-5.0) L 03/18/17 07:00 Urine Color Yellow 03/18/17 15:00 Urine Appearance Cloudy 03/18/17 15:00 Urine pH 8.0 (5.0-8.0) 03/18/17 15:00 Ur Specific [place] 1.015 (1.001-1.035) 03/18/17 15:00 Urine Protein Negative (NEGATIVE) 03/18/17 15:00 Urine Glucose (UA) Negative (NEGATIVE) 03/18/17 15:00 Urine Ketones Negative (NEGATIVE) 03/18/17 15:00 Urine Blood Negative (NEGATIVE) 03/18/17 15:00 Urine Nitrite Negative (NEGATIVE) 03/18/17 15:00 Urine Bilirubin Negative (NEGATIVE) 03/18/17 15:00 Urine Urobilinogen Negative mg/dL (0.2-1.0) 03/18/17 15:00 Ur Leukocyte Esterase Negative (NEGATIVE) 03/18/17 15:00 Urine WBC (Auto) 4 /hpf (3-5) 03/18/17 15:00 Urine RBC (Auto) <1 /hpf (0-3) 03/18/17 15:00 Ur Epithelial Cells Rare /HPF (FEW) 03/18/17 15:00 Urine Bacteria Rare /hpf (NONE SEEN) 03/18/17 15:00 Labs reviewed, HR elevated, patient was very anxious and was medicated. Assessment: 03/19/17 11:34 withdrawal symptoms Plan: Continue detox, Fluid hydration, monitor heart rate
[2017-03-19] MEDS: THIAMINE HCL 100 MG TABLET (FP) PO SCH (22:09)
--- NOTE | 2017-03-20 09:52 | PN ---
[facility] Progress Note (SOAP) Subjective: Sweating,interrupted sleep,restless Objective: 03/20/17 09:51 Vital Signs - 8 hr 03/20/17 03/20/17 03:30 06:00 Temperature 96.6 F L Pulse Rate 69 Respiratory 18 18 Rate Blood Pressure 108/67 Laboratory Tests 03/18/17 03/18/17 03/18/17 07:00 07:00 07:00 WBC 6.9 D RBC 4.45 Hgb 11.6 Hct 35.9 MCV 80.6 MCH 26.2 MCHC 32.5 RDW 18.1 H D Plt Count 234 D MPV 7.9 Sodium 137 Potassium 4.1 D Chloride 106 Carbon Dioxide 27 Anion Gap 4 L BUN 13 D Creatinine 0.6 D Creat Clearance w eGFR > 60 Random Glucose 95 Calcium 8.7 Total Bilirubin 0.3 D AST 12 L D ALT 20 D Alkaline Phosphatase 47 Total Protein 6.3 L Albumin 3.2 L Urine Color Urine Appearance Urine pH Ur Specific [place] Urine Protein Urine Glucose (UA) Urine Ketones Urine Blood Urine Nitrite Urine Bilirubin Urine Urobilinogen Ur Leukocyte Esterase Urine WBC (Auto) Urine RBC (Auto) Ur Epithelial Cells Urine Bacteria RPR Titer Nonreactive 03/18/17 15:00 WBC RBC Hgb Hct MCV MCH MCHC RDW Plt Count MPV Sodium Potassium Chloride Carbon Dioxide Anion Gap BUN Creatinine Creat Clearance w eGFR Random Glucose Calcium Total Bilirubin AST ALT Alkaline Phosphatase Total Protein Albumin Urine Color Yellow Urine Appearance Cloudy Urine pH 8.0 Ur Specific [place] 1.015 Urine Protein Negative Urine Glucose (UA) Negative Urine Ketones Negative Urine Blood Negative Urine Nitrite Negative Urine Bilirubin Negative Urine Urobilinogen Negative Ur Leukocyte Esterase Negative Urine WBC (Auto) 4 Urine RBC (Auto) <1 Ur Epithelial Cells Rare Urine Bacteria Rare RPR Titer labs noted Assessment: 03/20/17 09:51 Withdrawal sx. Plan: Continue detox
[2017-03-20] MEDS ORDERED: METHADONE HCL 5 MG TABLET (FOR DETOX USE ONLY) PO ONE (10:00)
[2017-03-20] MEDS: PRENATAL VITAMINS W/ FOLIC ACID TABLET (FP) PO SCH (10:06)
[2017-03-20] MEDS: LEVOTHYROXINE NA 112 MCG TABLET (FP) PO SCH (10:07)
[2017-03-20] MEDS: diazePAM 5 MG TABLET PO SCH ×2 (10:07→22:09)
[2017-03-20] MEDS: cloNIDine HCL 0.1 MG TABLET PO SCH ×2 (10:10→22:10)
[2017-03-20] MEDS: NICOTINE 14 MG/24 HOURS TOPICAL PATCH TD SCH (10:10)
[2017-03-20] MEDS: diazePAM 5 MG TABLET PO PRN (16:50)
[2017-03-20] MEDS: hydrOXYzine PAMOATE 50 MG CAPSULE (FP) PO PRN (19:23)
[2017-03-20] MEDS: THIAMINE HCL 100 MG TABLET (FP) PO SCH (22:09)
[2017-03-21] MEDS: LEVOTHYROXINE NA 112 MCG TABLET (FP) PO SCH (07:04)
[2017-03-21] MEDS ORDERED: METHADONE HCL 10 MG TABLET (FOR DETOX USE ONLY) PO ONE (10:00)
[2017-03-21 10:20] VITALS: BP 119/80; PULSE 98; TEMP 98.2
[2017-03-21] MEDS: PRENATAL VITAMINS W/ FOLIC ACID TABLET (FP) PO SCH (10:34)
[2017-03-21] MEDS: diazePAM 5 MG TABLET PO SCH (10:34)
[2017-03-21] MEDS: cloNIDine HCL 0.1 MG TABLET PO SCH (10:34)
[2017-03-21] MEDS: NICOTINE 14 MG/24 HOURS TOPICAL PATCH TD SCH (10:35)
--- NOTE | 2017-03-21 12:46 | DS ---
[facility] Detox Discharge Summary Admission Date: 03/17/17 Discharge Date: 03/21/17 - History Present History: Opioid Dependence, Sedative Dependence Pertinent Past History: Hypothyroidism - Physical Exam Results Vital Signs: Vital Signs Temperature 98.2 F 03/21/17 10:00 Pulse Rate 98 H 03/21/17 10:00 Respiratory Rate 20 03/21/17 10:00 Blood Pressure 119/80 03/21/17 10:00 O2 Sat by Pulse Oximetry (%) Pertinent Admission Physical Exam Findings: Withdrawal sx. Laboratory Tests 03/18/17 03/18/17 03/18/17 07:00 07:00 07:00 WBC 6.9 D RBC 4.45 Hgb 11.6 Hct 35.9 MCV 80.6 MCH 26.2 MCHC 32.5 RDW 18.1 H D Plt Count 234 D MPV 7.9 Sodium 137 Potassium 4.1 D Chloride 106 Carbon Dioxide 27 Anion Gap 4 L BUN 13 D Creatinine 0.6 D Creat Clearance w eGFR > 60 Random Glucose 95 Calcium 8.7 Total Bilirubin 0.3 D AST 12 L D ALT 20 D Alkaline Phosphatase 47 Total Protein 6.3 L Albumin 3.2 L Urine Color Urine Appearance Urine pH Ur Specific [place] Urine Protein Urine Glucose (UA) Urine Ketones Urine Blood Urine Nitrite Urine Bilirubin Urine Urobilinogen Ur Leukocyte Esterase Urine WBC (Auto) Urine RBC (Auto) Ur Epithelial Cells Urine Bacteria RPR Titer Nonreactive 03/18/17 15:00 WBC RBC Hgb Hct MCV MCH MCHC RDW Plt Count MPV Sodium Potassium Chloride Carbon Dioxide Anion Gap BUN Creatinine Creat Clearance w eGFR Random Glucose Calcium Total Bilirubin AST ALT Alkaline Phosphatase Total Protein Albumin Urine Color Yellow Urine Appearance Cloudy Urine pH 8.0 Ur Specific [place] 1.015 Urine Protein Negative Urine Glucose (UA) Negative Urine Ketones Negative Urine Blood Negative Urine Nitrite Negative Urine Bilirubin Negative Urine Urobilinogen Negative Ur Leukocyte Esterase Negative Urine WBC (Auto) 4 Urine RBC (Auto) <1 Ur Epithelial Cells Rare Urine Bacteria Rare RPR Titer labs noted - Treatment Hospital Course: Detox Protocol Followed, Detoxed Safely, Responded well, Discharged Condition Good, Rehab Referral Accepted Patient has Accepted a Rehab Referral to: [facility] rehab - Medication Discharge Medications: Ambulatory Orders Albuterol Sulfate Inhaler - [Ventolin Hfa Inhaler -] 1 - 2 puff IH PRN PRN 12/08 Levothyroxine [Synthroid -] 1 tab PO DAILY 12/08/16 - Diagnosis (1) Opioid dependence with withdrawal Current Visit: Yes Status: Acute (2) Post-traumatic stress syndrome Current Visit: Yes Status: Acute (3) Asthma Current Visit: Yes Status: Chronic Qualifiers: Asthma severity: unspecified severity Asthma complication type: uncomplicated (4) Hypothyroid Current Visit: Yes Status: Chronic Qualifiers: Hypothyroidism type: unspecified Qualified Code(s): E03.9 - Hypothyroidism , unspecified (5) Nicotine dependence Current Visit: Yes Status: Chronic Qualifiers: Nicotine product type: cigarettes Substance use status: uncomplicated Qualified Code(s): F17.210 - Nicotine dependence, cigarettes, uncomplicated (6) Sedative, hypnotic or anxiolytic dependence with withdrawal, uncomplicated Current Visit: Yes Status: Chronic - AMA Did Patient Leave Against Medical Advice: Yes
[2017-03-22] MEDS ORDERED: METHADONE HCL 5 MG TABLET (FOR DETOX USE ONLY) PO ONE (06:00)
[2017-03-22] MEDS ORDERED: diazePAM 5 MG TABLET PO SCH (10:00)
== END 2017-03-21 11:40 | disposition left against medical advice (07) | DRG 770 ==
LOC: YASAS 18:45 → Y6N 21:09
PROVIDERS: ADMIT Internal Medicine; ATTEND Internal Medicine
PROC: HZ2ZZZZ Detoxification Services for Substance Abuse Treatment (ICD-10-PCS; principal; 2017-03-17)
DX: F11.23 Opioid dependence with withdrawal (principal); F13.230 Sedative, hypnotic or anxiolytic dependence with withdrawal, uncomplicated; F10.20 Alcohol dependence, uncomplicated; F14.20 Cocaine dependence, uncomplicated; F12.20 Cannabis dependence, uncomplicated; F16.10 Hallucinogen abuse, uncomplicated; F17.210 Nicotine dependence, cigarettes, uncomplicated; F43.10 Post-traumatic stress disorder, unspecified; J45.909 Unspecified asthma, uncomplicated; E03.9 Hypothyroidism, unspecified
CPT/HCPCS: 36415; 80053; 81003; 81015; 85027; 86593; 93005; 93010

== ENCOUNTER 2017-04-02 16:17 | Inpatient (IN) | payer OTHER ==
[2017-04-02 16:27] VITALS: BMI 32.5
[2017-04-02] MEDS ORDERED: KETAMINE HCL 500 MG/10 ML VIAL IV ONE (17:39)
--- NOTE | 2017-04-02 18:00 | PDOC ---
History of Present Illness - General Chief Complaint: Abscess Boil Stated Complaint: Abscess Boil Time Seen by Provider: 04/02/17 17:08 History Source: Patient Exam Limitations: No Limitations - History of Present Illness Initial Comments: 04/02/17 17:47 Patient is a 31F with history of IVDU (heroin, recent relapse, last use 2 days ago) and hypothyroidism here today complaining of an abscess to the right anterior aspect of her neck and on the left lateral aspect of her chest for the past 2 days. She states that she AMA'd from [facility] while waiting for surgery because they wouldn't give her anything for pain. She endorses associated fevers and chills. She states that the pain from her abscess on the anterior aspect of her neck radiates to the posterior aspect of her neck. She denies chest pain, shortness of breath, and abdominal pain. She denies any imaging done at [facility]. She says she has a history of cutting herself, and says she last cut herself in February. Denies SI. Past History - Past Medical History Allergies/Adverse Reactions: Allergies Allergy/AdvReac Type Severity Reaction Status Date / Time No Known Allergies Allergy Verified 03/17/17 20:41 Home Medications: Ambulatory Orders Albuterol Sulfate Inhaler - [Ventolin Hfa Inhaler -] 1 - 2 puff IH PRN PRN 12/08 Levothyroxine [Synthroid -] 1 tab PO DAILY 12/08/16 Anemia: Yes (during ) Asthma: Yes Cancer: No Cardiac Disorders: No CVA: No COPD: No CHF: No Dementia: No Diabetes: No GI Disorders: No Disorders: No HTN: No Hypercholesterolemia: No Kidney Stones: No Liver Disease: No Seizures: No Thyroid Disease: Yes (hypothyroidism.) - Surgical History Abdominal Surgery: Yes Appendectomy: No Cardiac Surgery: No Cholecystectomy: Yes (01/2013) Lung Surgery: No Neurologic Surgery: No Orthopedic Surgery: No - Reproductive History PID: No - Immunization History Immunization Up to Date: Yes - Suicide/Smoking/Psychosocial Hx Smoking History: Current every day smoker Have you smoked in the past 12 months: Yes Number of Cigarettes Smoked Daily: 20 Cigars Per Day: 0 Information on smoking cessation initiated: No 'Breaking Loose' booklet given: 03/17/17 Hx Alcohol Use: No Drug/Substance Use Hx: No Substance Use Type: None Hx Substance Use Treatment: Yes ([facility]) Review of Systems - Review of Systems Comments:: 04/02/17 18:00 GENERAL/CONSTITUTIONAL: No fever or chills. HEAD, EYES, EARS, NOSE AND THROAT: No change in vision. No sore throat. CARDIOVASCULAR: No chest pain or shortness of breath RESPIRATORY: No cough, wheezing, or hemoptysis. GASTROINTESTINAL: No nausea, vomiting, diarrhea or constipation. GENITOURINARY: No dysuria, frequency, or change in urination. MUSCULOSKELETAL: Positive for pain to neck. SKIN: No rash NEUROLOGIC: Positive for headache. Negative for vertigo, loss of consciousness, or change in strength/sensation. ENDOCRINE: No increased thirst. No abnormal weight change HEMATOLOGIC/LYMPHATIC: No anemia, easy bleeding, or history of blood clots. *Physical Exam - Vital Signs Last Vital Signs Temp Pulse Resp BP Pulse Ox 98.7 F 92 H 20 115/59 100 04/02/17 16:25 04/02/17 16:25 04/02/17 16:25 04/02/17 16:25 04/02/17 16:25 - Physical Exam Comments: 04/02/17 18:01 GENERAL: Awake, alert, and fully oriented, in no acute distress HEAD: No signs of trauma, normocephalic, atraumatic EYES: PERRLA, EOMI, sclera anicteric, conjunctiva clear NECK: 4x4 fluctuant mass with surrounding erythema and tenderness. Neck movement limited by pain. CHEST: 2x2 fluctuant mass with surrounding erythema and tenderness. LUNGS: No distress, speaks full sentences, clear to auscultation bilaterally HEART: Regular rate and rhythm, normal S1 and S2, no murmurs, rubs or gallops, peripheral pulses normal and equal bilaterally. ABDOMEN: Soft, nontender, normoactive bowel sounds. No guarding, no rebound. No masses EXTREMITIES: Linear lacerations on anterior arms, old healing wounds consistent with IVDU and prior abscesses NEUROLOGICAL: Cranial nerves II through XII grossly intact. Normal speech, no focal sensorimotor deficits PSYCH: Denies SI/HI ED Treatment Course - LABORATORY CBC & Chemistry Diagram: 04/02/17 18:00 04/02/17 18:00 - RADIOLOGY Radiology Studies Ordered: Category Date Time Status CHEST CT WITH CONTRAST [CT] Stat CT Scan 04/02/17 17:37 Ordered SOFT TISSUE NECK CT WITH CONTR [CT] Stat CT Scan 04/02/17 17:37 Ordered Medical Decision Making - Medical Decision Making 04/02/17 18:06 31F with history of IVDU and hypothyroidism here today complaining of abscesses to her neck and chest. Vital signs stable and normal. Patient is in pain, usual opiates are a problem in a patient that is an active IVDU as they won't be as effective and likely reinforce addiction. Will use 10mg ketamine IV instead for analgesia. Concerned that abscess has spread extensively in neck. Will localize with CT w/contrast. Patient has been found using heroin in the hospital and recently ama'd from another hospital, is a flight risk. Nursing aware. Will evaluate further if CBC, CMP, Upreg, Coags and type and screen. 04/02/17 19:[address] Bailey. IV not able to be placed due to difficulty of access secondary to IVDU. Labs drawn, CMP pending. CBC notable for WBC of 14. *DC/Admit/Observation/Transfer Diagnosis at time of Disposition: IV drug abuse, Abscess - Referrals - Patient Instructions - Post Discharge Activity
[2017-04-02 18:42] LABS: MCH 26.4 pg (25.7-33.7); MCHC 32.7 g/dl (32.0-36.0); MEAN CELL VOLUME 80.7 fl (80-96); MEAN PLT VOLUME 7.9 fl (7.5-11.1); PLATELET COUNT 321 K/MM3 (134-434); RDW 16.8 % (11.6-15.6); WHITE BLOOD COUNT 13.8 K/mm3 (4.0-10.0)
[2017-04-02 19:00] LABS: INR 1.11 (0.82-1.09); PROTHROMBIN TIME (PATIENT) 12.5 SEC (9.98-11.88)
[2017-04-02 19:12] LABS: ALBUMIN 3.2 g/dl (3.4-5.0); ANION GAP 6 (8-16); CALCIUM 8.6 mg/dL (8.5-10.1); CO2 29 mmol/L (21-32); CREATININE 0.7 mg/dL (0.55-1.02); GLUCOSE,RANDOM 79 mg/dL (74-106); SGOT/AST 10 U/L (15-37); SGPT/ALT 21 U/L (12-78)
[2017-04-02 19:13] LABS: ALK PHOS 68 U/L (45-117); BILIRUBIN,TOTAL 0.3 mg/dL (0.2-1.0); TOT PROT 7.1 g/dl (6.4-8.2)
--- NOTE | 2017-04-02 20:02 | PDOC ---
Attending Attestation - Resident Resident Name: Mark Salomon - ED Attending Attestation I have performed the following: I have examined & evaluated the patient, The case was reviewed & discussed with the resident, I agree w/resident's findings & plan, Exceptions are as noted - HPI HPI: 04/02/17 20:02 31F with h/o IVDU (heroin) presenting to ER with abscess to neck. Pt states that she began to have swelling and pain in her R lower neck about 4 days ago. She was initially admitted to [facility], where she was diagnosed with an abscess and scheduled for surgery to have it drained today. However, pt left AMA because she was not receiving pain medication. Pt denies any F/C. Denies CP/ SOB. Denies difficulty swallowing or breathing. Pt did not have imaging done at [facility]. - Physicial Exam PE: 04/02/17 20:05 "GENERAL: Awake, alert, and fully oriented, in no acute distress HEAD: No signs of trauma EYES: PERRLA, EOMI, sclera anicteric, conjunctiva clear ENT: Auricles normal inspection, hearing grossly normal, nares patent, oropharynx clear without exudates. Moist mucosa NECK: 3cm fluctuant mass with surrounding erythema to R lower neck just superior to clavicle, no active drainage LUNGS: Breath sounds equal, clear to auscultation bilaterally. No wheezes, and no crackles HEART: Regular rate and rhythm, normal S1 and S2, no murmurs, rubs or gallops CHEST: 2cm fluctuant mass to L chest wall ABDOMEN: Soft, nontender, normoactive bowel sounds. No guarding, no rebound. No masses EXTREMITIES: Normal range of motion, no edema. No clubbing or cyanosis. No cords, erythema, or tenderness NEUROLOGICAL: Cranial nerves II through XII intact. 5/5 strength and sensation in all extremities, Normal speech, normal gait - Medical Decision Making 04/02/17 20:06 31 F with h/o IVDU presents with R neck abscess and L chest wall abscess. Will need CT imaging to evaluate depth of infection and possibly surgical consultation. Pt with no signs of sepsis. - Labs, cultures - CT neck and chest with IV contrast - Abx 04/02/17 20:07 Pt signed out to oncoming attending, pending labs, CT, possible surgical consultation, and admission for IV antibiotics. Case discussed in detail with oncoming Emergency Physician including history, physical exam and ancillary studies. Oncoming Emergency Physician has assumed care for the patient and will complete the evaluation and treatment. Patient is aware of the plan.
[2017-04-02] MEDS ORDERED: PIPERACILLIN/TAZOB 4.5 GM 4.5 GM/100 ML BAG IVPB ONE (20:07)
[2017-04-02] MEDS ORDERED: VANCOMYCIN 1 GRAM (PRE-DOCKED) 1,000 MG/250 ML BAG IVPB ONE (20:07)
[2017-04-02] MEDS ORDERED: KETAMINE HCL 500 MG/10 ML VIAL ONE (20:07)
[2017-04-02] MEDS ORDERED: KETAMINE HCL 500 MG/10 ML VIAL IM ONE (21:45)
[2017-04-02] MEDS ORDERED: CLINDAMYCIN HCL 150 MG CAPSULE (FP) PO ONE (21:47)
[2017-04-02] MEDS ORDERED: cefTRIAXone SODIUM 1 GM VIAL IM ONE (21:48)
[2017-04-02] MEDS ORDERED: AMOX TR/POT CLAV 875MG/125MG TABLETS (FP) PO ONE (21:52)
--- NOTE | 2017-04-02 21:53 | HP ---
CHIEF COMPLAINT: R Neck, L abdominal abscess PCP: None HISTORY OF PRESENT ILLNESS: 31 yo woman w/ pmh of hypothyroidism, IVDU (heroin) and prior neck abscess, who presents with worsening R neck abscess and L chest wall abscess. Pt was admitted at [facility] 4 day ago for tx and surgical drainage of R neck abscess, however left AMA today before procedure, stating that she was not receiving adequate pain control. Pt states that L chest wall abscess began one week ago and her R neck abscess appeared 4 days prior. She denies any IVDU at this time, as well as any trauma or abrasions to either site. Pt endorses mild fever/ chills over the past few days, as well as productive cough. She denies any BORDEN, dizziness, CP, SOB, abdominal pain, N/V, diarrhea/constipation, dysuria, other rashes or focal neurologic symptoms. Pt was treated for prior R neck abscess at the same location in 11/27 w/ abx and IR-guided drainage, with aspiration + for MRSA. On this admission, pt left AMA. She denies any sick contacts or recent travel. Prior hx of IVDU and cocaine abuse w/ drug-seeking behavior, recently admitted at [facility] for rehab 03/17-. No imaging performed at [facility] per prior record. ER course was notable for: (1) Afebrile, normal vital signs (2) Received one dose of vanc, zosyn, rocephin (3) Recent Travel: None PAST MEDICAL HISTORY: Hypothyroidism Asthma IVDU (Heroin) PSA PTSD PAST SURGICAL HISTORY: Cholecystectomy 5 yrs ago Social History: Smokin.5 ppd, past 20 yrs Alcohol: denies. Hx of alcohol use per prior record Drugs: Pt denies, IVDU/cocaine abuse per prior notes Family History: noncontributory Allergies No Known Allergies Allergy (Verified 03/17/17 20:41) HOME MEDICATIONS: Home Medications Medication Instructions Recorded Albuterol Sulfate Inhaler - 1 - 2 puff IH PRN PRN 12/08/16 [Ventolin Hfa Inhaler -] Levothyroxine [Synthroid -] 1 tab PO DAILY 12/08/16 REVIEW OF SYSTEMS CONSTITUTIONAL: fever, chills, Absent: diaphoresis, generalized weakness, malaise, loss of appetite, weight change HEENT: Absent: rhinorrhea, nasal congestion, throat pain, throat swelling, difficulty swallowing, mouth swelling, ear pain, eye pain, visual changes CARDIOVASCULAR: Absent: chest pain, syncope, palpitations, irregular heart rate, lightheadedness , peripheral edema RESPIRATORY: cough, Absent: shortness of breath, dyspnea with exertion, orthopnea, wheezing, stridor , hemoptysis GASTROINTESTINAL: Absent: abdominal pain, abdominal distension, nausea, vomiting, diarrhea, constipation, melena, hematochezia GENITOURINARY: Absent: dysuria, frequency, urgency, hesitancy, hematuria, flank pain, genital pain MUSCULOSKELETAL: neck pain Absent: myalgia, arthralgia, joint swelling, back pain, SKIN: Abscess on R neck and LUQ Absent: itching, pallor HEMATOLOGIC/IMMUNOLOGIC: Absent: easy bleeding, easy bruising, lymphadenopathy, frequent infections ENDOCRINE: Absent: unexplained weight gain, unexplained weight loss, heat intolerance, cold intolerance NEUROLOGIC: Absent: headache, focal weakness or paresthesias, dizziness, unsteady gait, seizure, mental status changes, bladder or bowel incontinence PHYSICAL EXAMINATION Vital Signs - 24 hr 04/02/17 16:25 Temperature 98.7 F Pulse Rate 92 H Respiratory 20 Rate Blood Pressure 115/59 O2 Sat by Pulse 100 Oximetry (%) GENERAL: Awake, alert, and fully oriented, in no acute distress. Laying in bed HEAD: Normal with no signs of trauma. EYES: Pupils equal, round and reactive to light, extraocular movements intact, sclera anicteric, conjunctiva clear. No lid lag. EARS, NOSE, THROAT: Ears normal, nares patent, oropharynx clear without exudates. Poor dentition. Moist mucous membranes. NECK: R 3-4 cm fluctuant mass noted on R medial supraclavicular fossa, with surrounding erythema. Restricted on lateral rotation due to pain. supple without lymphadenopathy, JVD. LUNGS: Breath sounds equal, clear to auscultation bilaterally. No wheezes, and no crackles. No accessory muscle use. HEART: Regular rate and rhythm, normal S1 and S2 without murmur, rub or gallop. ABDOMEN: 2 cm fluctuant mass with mild erythema and mild tenderness to palpation in LUQ, with suspicious injection sites in LUQ. Otherwise, abdomen soft, nontender, not distended, normoactive bowel sounds, no guarding, no rebound, no masses. No hepatomegaly or splenomegaly. MUSCULOSKELETAL: Normal range of motion at all joints. No bony deformities or tenderness. No CVA tenderness. UPPER EXTREMITIES: 2+ pulses, warm, well-perfused. Track causey noted on R forearm. No lesions noted in nailbeds or palms BL. No cyanosis. No clubbing. No peripheral edema. LOWER EXTREMITIES: 2+ DP, PT pulses BL, warm, well-perfused. No calf tenderness. No peripheral edema. NEUROLOGICAL: Cranial nerves II-XII intact. Normal speech. Gait not observed. PSYCHIATRIC: Cooperative. Good eye contact. Appropriate mood and affect. SKIN: Warm, dry, normal turgor, no rashes or lesions noted, normal capillary refill. Laboratory Results - last 24 hr 04/02/17 04/02/17 04/02/17 16:40 18:00 18:00 WBC 13.8 H D RBC 4.52 Hgb 11.9 Hct 36.5 MCV 80.7 MCH 26.4 MCHC 32.7 RDW 16.8 H Plt Count 321 D MPV 7.9 PT with INR INR Sodium 135 L Potassium 3.7 Chloride 100 Carbon Dioxide 29 Anion Gap 6 L BUN 7 D Creatinine 0.7 Creat Clearance w eGFR > 60 Random Glucose 79 Calcium 8.6 Total Bilirubin 0.3 AST 10 L ALT 21 Alkaline Phosphatase 68 D Total Protein 7.1 Albumin 3.2 L Urine HCG, Qual Negative 04/02/17 18:00 WBC RBC Hgb Hct MCV MCH MCHC RDW Plt Count MPV PT with INR 12.50 H INR 1.11 Sodium Potassium Chloride Carbon Dioxide Anion Gap BUN Creatinine Creat Clearance w eGFR Random Glucose Calcium Total Bilirubin AST ALT Alkaline Phosphatase Total Protein Albumin Urine HCG, Qual No EKG No CXR CT head and neck w/ contrast 04/02 - pending Blood cultures pending ASSESSMENT/PLAN: 31 yo woman w/ pmh of hypothyroidism, IVDU (heroin) and prior neck abscess, who presents with worsening R neck abscess and L chest wall abscess. Pt was admitted at [facility] 4 day ago for tx and surgical drainage of R neck abscess, however left AMA today before procedure, stating that she was not receiving adequate pain control. #R neck, L chest wall abscesses - Prior hx of MRSA + abscess 11/27 at [facility], WBC 13.8 on admission, afebrile - ID consulted, recs appreciated - Unable to obtain IV access. Will attempt again. Otherwise, will require PICC line placement tomorrow - Blood cultures pending - Surgical consult for I+D - Currently receiving clindamycin/augmentin. Will add Vancomycin once IV access obtained - TTE to r/o IE - Trend WBC, fever curve - Monitor for signs of sepsis - F/u medical records at [facility] - Tylenol 1000mg IV for pain control - Contact precautions - F/u CT head and neck #Hypothyroidism -Continue home synthroid -TSH #PSA - IV heroin, cocaine abuse - [employer] on cessation - Consider detox consult - Monitor for signs of withdrawal - No opiates - Tylenol IV for pain. If no IV access, PO tylenol PPX SCDs FEN PO hydration Daily BMP, no abnormalities NPO after midnight Plan discussed with attending, Dr. Liss Chaves, PGY1 Visit type - Emergency Visit Emergency Visit: Yes ED Registration Date: 04/02/17 Care time: The patient presented to the Emergency Department on the above date and was hospitalized for further evaluation of their emergent condition. - New Patient This patient is new to me today: Yes Date on this admission: 04/03/17 - Critical Care Critical Care patient: No
[2017-04-02] MEDS ORDERED: CLINDAMYCIN HCL 150 MG CAPSULE (FP) ONE (22:00)
[2017-04-02] MEDS ORDERED: AMOX TR/POT CLAV 875MG/125MG TABLETS (FP) ONE (22:00)
--- NOTE | 2017-04-02 22:03 | PDOC ---
*Physical Exam - Vital Signs Last Vital Signs Temp Pulse Resp BP Pulse Ox 98.7 F 92 H 20 115/59 100 04/02/17 16:25 04/02/17 16:25 04/02/17 16:25 04/02/17 16:25 04/02/17 16:25 ED Treatment Course - LABORATORY CBC & Chemistry Diagram: 04/02/17 18:00 04/02/17 18:00 - ADDITIONAL ORDERS Additional order review: Laboratory Results 04/02/17 04/02/17 04/02/17 18:00 18:00 18:00 PT with INR 12.50 H INR 1.11 Sodium 135 L Potassium 3.7 Chloride 100 Carbon Dioxide 29 Anion Gap 6 L BUN 7 D Creatinine 0.7 Creat Clearance w eGFR > 60 Random Glucose 79 Calcium 8.6 Total Bilirubin 0.3 AST 10 L ALT 21 Alkaline Phosphatase 68 D Total Protein 7.1 Albumin 3.2 L Urine HCG, Qual Blood Type O POSITIVE Antibody Screen Negative 04/02/17 16:40 PT with INR INR Sodium Potassium Chloride Carbon Dioxide Anion Gap BUN Creatinine Creat Clearance w eGFR Random Glucose Calcium Total Bilirubin AST ALT Alkaline Phosphatase Total Protein Albumin Urine HCG, Qual Negative Blood Type Antibody Screen 04/02/17 18:00 RBC 4.52 MCV 80.7 MCHC 32.7 RDW 16.8 H MPV 7.9 - Medications Given in the ED: ED Medications Discontinued Medications Generic Name Dose Route Start Last Admin Trade Name Freq PRN Reason Stop Dose Admin Ketamine HCl 10 mg 04/02/17 17:39 04/02/17 20:15 Ketalar - IV 04/02/17 17:40 10 mg ONCE ONE Administration Medical Decision Making - Medical Decision Making 04/02/17 22:07 IV line attempted on right upper extremity but didn't hold. Patient will be admited and PICC line will be place tomorrow. In the meantime ketamine IM for pain control and switched IV antibiotics to PO ( vanc-zosyn to clinda and augmentin) *DC/Admit/Observation/Transfer Diagnosis at time of Disposition: IV drug abuse, Abscess - Discharge Dispostion Admit: Yes - Referrals - Patient Instructions - Post Discharge Activity
[2017-04-03] MEDS ORDERED: ACETAMINOPHEN 325 MG TABLET (FP) PO PRN (01:48)
[2017-04-03] MEDS ORDERED: ALBUTEROL SO4 18 GM HFA INHALER IH PRN (01:49)
[2017-04-03] MEDS ORDERED: ACETAMINOPHEN 325 MG TABLET (FP) ONE (03:44)
[2017-04-03] MEDS ORDERED: PSEUDOEPHEDRINE HCL 60 MG TABLET ONE (03:44)
--- NOTE | 2017-04-03 05:07 | PN ---
Teaching Attending Note Name of Resident: Harry Chaves ATTENDING PHYSICIAN STATEMENT I saw and evaluated the patient. I reviewed the resident's note and discussed the case with the resident. I agree with the resident's findings and plan as documented. SUBJECTIVE: 31 y/o IVDA, recently signed AMA from [facility] after being admitted for right cervical abscess and abdominal abscess. Patient states that she was not getting treated fast enough and needed more pain medication. OBJECTIVE: Gen: A&Ox3, no mild distress HEENT: PERRLA, EOMI, MMM, right cervical erythema and large abscess approx 10 cm diameter. CVS: RRR, no M/G/R appreciated Lungs: CTA, no wheezing Abd: soft , NT, abscess Ext: Nl ROM, no peripheral edema Skin: track causey, multiple abscesses CBCD WBC 13.8 K/mm3 (4.0-10.0) H D 04/02/17 18:00 RBC 4.52 M/mm3 (3.60-5.2) 04/02/17 18:00 Hgb 11.9 GM/dL (10.7-15.3) 04/02/17 18:00 Hct 36.5 % (32.4-45.2) 04/02/17 18:00 MCV 80.7 fl (80-96) 04/02/17 18:00 MCHC 32.7 g/dl (32.0-36.0) 04/02/17 18:00 RDW 16.8 % (11.6-15.6) H 04/02/17 18:00 Plt Count 321 K/MM3 (134-434) D 04/02/17 18:00 MPV 7.9 fl (7.5-11.1) 04/02/17 18:00 CMP Sodium 135 mmol/L (136-145) L 04/02/17 18:00 Potassium 3.7 mmol/L (3.5-5.1) 04/02/17 18:00 Chloride 100 mmol/L (98-107) 04/02/17 18:00 Carbon Dioxide 29 mmol/L (21-32) 04/02/17 18:00 Anion Gap 6 (8-16) L 04/02/17 18:00 BUN 7 mg/dL (7-18) D 04/02/17 18:00 Creatinine 0.7 mg/dL (0.55-1.02) 04/02/17 18:00 Creat Clearance w eGFR > 60 (>60) 04/02/17 18:00 Calcium 8.6 mg/dL (8.5-10.1) 04/02/17 18:00 Total Bilirubin 0.3 mg/dL (0.2-1.0) 04/02/17 18:00 AST 10 U/L (15-37) L 04/02/17 18:00 ALT 21 U/L (12-78) 04/02/17 18:00 Alkaline Phosphatase 68 U/L (45-117) D 04/02/17 18:00 Total Protein 7.1 g/dl (6.4-8.2) 04/02/17 18:00 Albumin 3.2 g/dl (3.4-5.0) L 04/02/17 18:00 ASSESSMENT AND PLAN: Multiple Abscess s/p IVDA Surgery consult for I&D keep NPO Vancomycin h/o MRSA, Zosyn ID consult Dr Mireles Contact isolation Blood cultures- contact [facility] for medical records as patient already received antibiotics Tylenol 1000mg IVP stat, then PO q6h no opioids. Ativan 2mg prn for aggitation. Dvt prophylaxis
[2017-04-03] MEDS: LEVOTHYROXINE NA 112 MCG TABLET (FP) PO SCH (06:36)
[2017-04-03 08:22] LABS: BASO # 0.1 # (0.1-1); BASO % 0.4 % (0-2.0); EOS # 0.1 # (0-4.5); EOS % 0.6 % (0-4.5); LYMPH # 1.5 (8-40); MCH 25.7 pg (25.7-33.7); MCHC 32.2 g/dl (32.0-36.0); MEAN CELL VOLUME 79.7 fl (80-96); MEAN PLT VOLUME 7.3 fl (7.5-11.1); MONO # 1.3 # (3.8-10.2); NEUT # 11.5 # (42.8-82.8); NEUT % 79.3 % (42.8-82.8); PLATELET COUNT 309 K/MM3 (134-434); RDW 16.9 % (11.6-15.6); WHITE BLOOD COUNT 14.5 K/mm3 (4.0-10.0)
[2017-04-03 08:48] LABS: ALBUMIN 2.9 g/dl (3.4-5.0); ANION GAP 8 (8-16); CALCIUM 8.6 mg/dL (8.5-10.1); CO2 26 mmol/L (21-32); GLUCOSE,RANDOM 98 mg/dL (74-106); SGOT/AST 12 U/L (15-37); SGPT/ALT 18 U/L (12-78)
[2017-04-03 08:51] LABS: ALK PHOS 68 U/L (45-117); BILIRUBIN,TOTAL 0.5 mg/dL (0.2-1.0); CREATININE 0.6 mg/dL (0.55-1.02); TOT PROT 6.8 g/dl (6.4-8.2)
[2017-04-03] MEDS ORDERED: KETOROLAC TROMETHAMINE 30 MG/1 ML VIAL IM PRN (10:17)
[2017-04-03] MEDS ORDERED: KETOROLAC TROMETHAMINE 30 MG/1 ML VIAL IVPUSH PRN (10:31)
[2017-04-03] MEDS ORDERED: KETOROLAC TROMETHAMINE 30 MG/1 ML VIAL ONE (11:31)
[2017-04-03] MEDS ORDERED: KETOROLAC TROMETHAMINE 15 MG/ML VIAL IM ONE (12:44)
--- NOTE | 2017-04-03 13:21 | CON.ID ---
Consult Consult Specialty:: infectious diseases Referred by:: Reason for Consultation:: abscess,heroin abuse - History of Present Illness Chief Complaint: pain and abscess in the rt clavicular region History of Present Illness: Pt known to me from last admission who was admitted with the same abscess - right supraclavicular/retroclavicular abscess, s/p IR aspiration for culture ( MRSA) at that time, who left AMA on that visit without completing IV antibiotics. Patients abscess was never cleared and now she states that it has increased. . She was at [facility] for a day until yesterday, pending surgical drainage of the abscess, when she left there AMA as well. Per ER records, it was because she wasn't getting enough pain medication. She also has a small abscess on her LUQ/left lower chest wall. patient is active heroin user and was trying to do heroin in the hospital last time when she signed out ama patient is a very high risk and it seems her boyfreind had got the drugs inside the hospital last time--i am not very sure - History Source History Provided By: Patient Limitations to Obtaining History: No Limitations - Past Medical History Pulmonary: Yes: Asthma ...LMP: 03/10/17 Infectious Disease: Yes: MRSA (per pt) Psych: Yes: Addictions (heroin IV in past, recent skin popping; cocaine snorting , 1/2ppd tob; pt states she has had withdrawal symptoms if she does not use), Anxiety, Depression, Other (borderline personality disorder (per pt)) Endocrine: Yes: Hypothyroidism - Past Surgical History Past Surgical History: Yes: Cholecystectomy (laparoscopic, ~4 yrs ago) - Alcohol/Substance Use Hx Alcohol Use: No History of Substance Use: reports: Cocaine (snorted last 3d ago), Heroin (IV in past, skin popping - last 3d ago). denies: Marijuana (denies) Date of Last Use: 12/05/16 (has been on suboxone thru [facility], skipped last one before relapse 3d ago) - Smoking History Smoking history: Current every day smoker Have you smoked in the past 12 months: Yes Aproximately how many cigarettes per day: 20 - Social History History of Recent Travel: No Home Medications - Allergies Allergies/Adverse Reactions: Allergies Allergy/AdvReac Type Severity Reaction Status Date / Time No Known Allergies Allergy Verified 03/17/17 20:41 - Home Medications Home Medications: Ambulatory Orders Albuterol Sulfate Inhaler - [Ventolin Hfa Inhaler -] 1 - 2 puff IH PRN PRN 12/08 Levothyroxine [Synthroid -] 1 tab PO DAILY 12/08/16 Family Disease History - Family Disease History Family Disease History: Respiratory: Father (asthma, drug overdose ), Other: Father Review of Systems - Review of Systems Constitutional: reports: No Symptoms Eyes: reports: No Symptoms HENT: reports: No Symptoms Neck: reports: Other (rt supraclavicular abscess) Cardiovascular: reports: No Symptoms Respiratory: reports: No Symptoms Gastrointestinal: reports: No Symptoms Neurological: reports: No Symptoms Endocrine: reports: No Symptoms Physical Exam Vital Signs: Vital Signs Temperature 97.9 F 04/03/17 03:29 Pulse Rate 78 04/03/17 03:29 Respiratory Rate 20 04/03/17 03:29 Blood Pressure 116/60 04/03/17 03:29 O2 Sat by Pulse Oximetry (%) 100 04/02/17 16:25 Constitutional: Yes: Well Nourished, Moderate Distress Eyes: Yes: Conjunctiva Clear HENT: Yes: Atraumatic, Normocephalic Neck: Yes: Other (large right supraclavicular fluctuant abscess, draining foul- smelling pus, local erythema, small pale yellow necrotic focus centrally) Cardiovascular: Yes: Regular Rate and Rhythm Respiratory: Yes: Regular, CTA Bilaterally Gastrointestinal: Yes: Normal Bowel Sounds, Soft Musculoskeletal: Yes: WNL Extremities: Yes: Other (tattoes on ext) Integumentary: Yes: Tattoos, Other (LUQ/lower chest wall with 3-4cm raised, fluctuant, erythematous area, tender, no drainage) Wound/Incision: Yes: Other Neurological: Yes: Alert, Oriented Labs: CBC, BMP 04/03/17 08:03 04/03/17 08:03 Imaging - Results Chest X-ray: Report Reviewed, Image Reviewed Ultrasound: Report Reviewed (echo result noted) Assessment/Plan Problem List - Problems (1) Cellulitis of neck Code(s): L03.221 - CELLULITIS OF NECK (2) Neck abscess Code(s): L02.11 - CUTANEOUS ABSCESS OF NECK (3) Abscess of chest wall Code(s): L02.213 - CUTANEOUS ABSCESS OF CHEST WALL (4) Polysubstance dependence including opioid type drug with complication, episodic abuse Code(s): F11.229 - OPIOID DEPENDENCE WITH INTOXICATION, UNSPECIFIED (5) Asthma Code(s): J45.909 - UNSPECIFIED ASTHMA, UNCOMPLICATED Qualifiers: Asthma severity: unspecified severity Asthma persistence: intermittent Asthma complication type: uncomplicated Qualified Code(s): J45.20 - Mild intermittent asthma, uncomplicated (6) Hypothyroid Code(s): E03.9 - HYPOTHYROIDISM, UNSPECIFIED Qualifiers: Hypothyroidism type: unspecified Qualified Code(s): E03.9 - Hypothyroidism , unspecified (7) Nicotine dependence Code(s): F17.200 - NICOTINE DEPENDENCE, UNSPECIFIED, UNCOMPLICATED Qualifiers: Nicotine product type: cigarettes Substance use status: uncomplicated Qualified Code(s): F17.210 - Nicotine dependence, cigarettes, uncomplicated (8) Cocaine dependence Code(s): F14.20 - COCAINE DEPENDENCE, UNCOMPLICATED Qualifiers: Substance use status: uncomplicated Qualified Code(s): F14.20 - Cocaine dependence, uncomplicated this patient very high risk for severe infection and endocarditis plan needs iv line stat as she has no access cannot miss abx ct scan close monitoring that she has no access to drugs detox consult drainage of abscess needed monitor vanco level and adjut doses to keep it between 15 to 20 await for final cx reports hydration rest as per primary
[2017-04-03] MEDS ORDERED: PIPERACILLIN/TAZOB 4.5 GM 4.5 GM/100 ML BAG IVPB SCH (13:30)
--- NOTE | 2017-04-03 14:20 | PN ---
Teaching Attending Note Name of Resident: La Quintana ATTENDING PHYSICIAN STATEMENT Time of evaluation; 12:15 PM I saw and evaluated the patient. I reviewed the resident's note and discussed the case with the resident. I agree with the resident's findings and plan as documented. SUBJECTIVE: Patient seen and examined. Right neck pain, left lower chest wall pain, asking for 'ketamine'. Subjective fevers/chills. OBJECTIVE: Vital Signs Period Temp Pulse Resp BP Sys/Alarcon Pulse Ox Last 24 Hr 97.9 F-98.8 F 78-92 20-20 115-118/59-62 100 Intake & Output 03/31/17 04/01/17 04/02/17 04/03/17 23:59 23:59 23:59 23:59 Weight 172 lb General: lying in bed in no acute distress neck; 3-4 cm right neck fluctuant mass of mid supraclavicular region, with limited lateral movements. Abdomen: 2 cm fluctuant mass with overlying erythema in LUQ region Home Medication List Medication Instructions Recorded Confirmed Type Albuterol Sulfate Inhaler - 1 - 2 puff IH PRN PRN 12/08/16 04/02/17 History [Ventolin Hfa Inhaler -] Levothyroxine [Synthroid -] 1 tab PO DAILY 12/08/16 04/02/17 History Active Medications Generic Name Dose Route Start Last Admin Trade Name Freq PRN Reason Stop Dose Admin Acetaminophen 650 mg 04/03/17 01:48 04/03/17 03:50 Tylenol - PO 650 mg Q6H PRN Administration FEVER OR PAIN Albuterol Sulfate 2 puff 04/03/17 01:49 Ventolin Hfa Inhaler - IH Q4H PRN ASTHMA Vancomycin HCl 1,250 mg/ 250 mls @ 250 mls/hr 04/03/17 13:30 Dextrose IVPB DAILY TRE Protocol Piperacillin/Tazobactam/Dextrose 4.5 gm in 100 mls @ 200 mls/hr 04/03/17 13: 30 Zosyn 4.5gm Ivpb (Premix) IVPB Q8H-IV TRE Protocol Ketorolac Tromethamine 30 mg 04/03/17 10:31 04/03/17 12:33 Toradol Injection - IVPUSH 04/08/17 10:30 30 mg Q6H PRN Administration PAIN Levothyroxine Sodium 112 mcg 04/03/17 07:00 04/03/17 06:36 Synthroid - PO 112 mcg DAILY@0700 [facility] Administration Laboratory Results - last 24 hr 04/02/17 04/02/17 04/02/17 16:40 18:00 18:00 WBC 13.8 H D RBC 4.52 Hgb 11.9 Hct 36.5 MCV 80.7 MCH 26.4 MCHC 32.7 RDW 16.8 H Plt Count 321 D MPV 7.9 Absolute Neuts (auto) Absolute Lymphs (auto) Absolute Monos (auto) Absolute Eos (auto) Absolute Basos (auto) Neutrophils % Lymphocytes % Monocytes % Eosinophils % Basophils % PT with INR INR Sodium 135 L Potassium 3.7 Chloride 100 Carbon Dioxide 29 Anion Gap 6 L BUN 7 D Creatinine 0.7 Creat Clearance w eGFR > 60 Random Glucose 79 Calcium 8.6 Total Bilirubin 0.3 AST 10 L ALT 21 Alkaline Phosphatase 68 D Total Protein 7.1 Albumin 3.2 L Urine HCG, Qual Negative Blood Type Antibody Screen 04/02/17 04/02/17 04/03/17 18:00 18:00 08:03 WBC 14.5 H RBC 4.34 Hgb 11.1 Hct 34.6 MCV 79.7 L MCH 25.7 MCHC 32.2 RDW 16.9 H Plt Count 309 MPV 7.3 L Absolute Neuts (auto) 11.5 L Absolute Lymphs (auto) 1.5 L Absolute Monos (auto) 1.3 L Absolute Eos (auto) 0.1 Absolute Basos (auto) 0.1 Neutrophils % 79.3 Lymphocytes % 10.7 D Monocytes % 9.0 Eosinophils % 0.6 Basophils % 0.4 PT with INR 12.50 H INR 1.11 Sodium Potassium Chloride Carbon Dioxide Anion Gap BUN Creatinine Creat Clearance w eGFR Random Glucose Calcium Total Bilirubin AST ALT Alkaline Phosphatase Total Protein Albumin Urine HCG, Qual Blood Type O POSITIVE Antibody Screen Negative 04/03/17 08:03 WBC RBC Hgb Hct MCV MCH MCHC RDW Plt Count MPV Absolute Neuts (auto) Absolute Lymphs (auto) Absolute Monos (auto) Absolute Eos (auto) Absolute Basos (auto) Neutrophils % Lymphocytes % Monocytes % Eosinophils % Basophils % PT with INR INR Sodium 136 Potassium 4.1 Chloride 102 Carbon Dioxide 26 Anion Gap 8 BUN 8 Creatinine 0.6 Creat Clearance w eGFR > 60 Random Glucose 98 D Calcium 8.6 Total Bilirubin 0.5 D AST 12 L ALT 18 Alkaline Phosphatase 68 Total Protein 6.8 Albumin 2.9 L Urine HCG, Qual Blood Type Antibody Screen 2D echo reviewed ASSESSMENT AND PLAN: 31 yof with PMHx of IVDU (heroine use), hypothyroidism, prior neck abscesses s/ p IR guided drainage, recently admitted to [facility] for the same, left after 4 days, was planned for surgical drainage comes to [facility] ED. -Right neck abscess/Left upper abdomen skin wall abscess -Early Sepsis -IVDU -Hypothyroidism -h/o prior neck abscess Plan: -Zosyn/vancomycin. Discussed with ED/ICU/anesthesia this AM, for IV access, successful this AM, lost again. Will follow up. Suspected needs surgical drainage, contact Dr. Knowles, awaiting input. For possible OR guided drainage. Pain control with tylenol/toradol. NPO, IVF, Detox rehab consult with Dr. Fierro 2D echo noted. Discussed with Dr. Mireles, follow up antibiotic recs, blood cultures. GI/DVTPPx Dispo pending improvement in medical issues.
[2017-04-03] MEDS ORDERED: PIPERACILLIN/TAZOB 4.5 GM 4.5 GM/100 ML BAG IVPB ONE (16:39)
[2017-04-03] MEDS: PIPERACILLIN/TAZOB 4.5 GM 4.5 GM in DEXTROSE 5%-WATER - 100 ML IVPB SCH ×2 (16:51→19:17)
[2017-04-03] MEDS: DEXTROSE 5%-NORMAL SALINE 1,000 ML IV SCH (17:03)
--- NOTE | 2017-04-03 17:12 | CONSULT ---
Consult Consult Specialty:: General Surgery Referred by:: ER and Dr. Reynoso Reason for Consultation:: R supraclavicular abscess, LUQ/lower chest wall abscess - History of Present Illness Chief Complaint: multiple abscesses, R supraclavicular came back History of Present Illness: Pt known to me from late November admission with right supraclavicular/ retroclavicular abscess, s/p IR aspiration for culture (MRSA) at that time, who left AMA on that visit without completing IV antibiotics. She states the abscess returned and just showed up several days ago. She was at [facility] for a day until yesterday, pending surgical drainage of the abscess, when she left there AMA as well. Per ER records, it was because she wasn't getting enough pain medication. She also has a small abscess on her left lower chest wall. In the ER, she has a wbc of 14, and CT has been pending, because her team cannot get a 20 gauge IV in her veins for the scan. She has had at least 2 lines blow, and now has a 22g in her right foot. PICC line is being considered for access, but CT remains pending of the right shoulder area. She has gotten Ceftriaxone, PO Clindamycin and Augmentin. IV antibiotics are also pending IV access. AFTER IV ACCESS: Pt now has L IJ CVC and another PIV in left arm, which she says is not working. She has had CT of neck and chest. Symptoms with these abscesses include chills and one fever, no n/v, no d/c, no other symptoms. She last used heroin IV 2 days ago. Also uses cocaine and occasionally MJ, 1/2 ppd cigarettes, no alcohol. She is currently resting and would prefer to have her abscesses drained in the morning. Per nursing, she had a suspicious visitor earlier with a possible transaction including both of them having spent time in the bathroom right after each other. No drug paraphernalia was found on the patient, but the trash was taken before it could be searched. - History Source History Provided By: Patient Limitations to Obtaining History: No Limitations - Past Medical History Pulmonary: Yes: Asthma ...LMP: 03/10/17 ...: No Infectious Disease: Yes: MRSA (from last admission) Psych: Yes: Addictions (heroin IV; cocaine snorting, occ MJ, 1/2ppd tob; pt states she has had withdrawal symptoms if she does not use), Anxiety, Depression , Other (borderline personality disorder (per pt)) Endocrine: Yes: Hypothyroidism - Past Surgical History Past Surgical History: Yes: Cholecystectomy (laparoscopic, ~4 yrs ago) - Alcohol/Substance Use Hx Alcohol Use: No History of Substance Use: reports: Cocaine (snorts), Heroin (IV), Marijuana Date of Last Use: 03/31/17 - Smoking History Smoking history: Current every day smoker Have you smoked in the past 12 months: Yes Aproximately how many cigarettes per day: 10 - Social History History of Recent Travel: No <Tylor Knowles - Last Filed: 04/04/17 01:49> Home Medications <Anusha Mireles - Last Filed: 04/03/17 18:43> <Tylor Knowles - Last Filed: 04/04/17 01:49> - Allergies Allergies/Adverse Reactions: Allergies Allergy/AdvReac Type Severity Reaction Status Date / Time No Known Allergies Allergy Verified 03/17/17 20:41 - Home Medications Home Medications: Ambulatory Orders Albuterol Sulfate Inhaler - [Ventolin Hfa Inhaler -] 1 - 2 puff IH PRN PRN 12/08 Levothyroxine [Synthroid -] 1 tab PO DAILY 12/08/16 Family Disease History - Family Disease History Family Disease History: Respiratory: Father (asthma, drug overdose ), Other: Father <Tylor Knowles - Last Filed: 04/04/17 01:49> Review of Systems - Review of Systems Constitutional: reports: Chills, Fever Eyes: denies: Blurred Vision, Recent Change in Vision HENT: denies: Hearing Loss, Nasal Congestion Neck: reports: Decreased ROM, Lumps (above right clavicle), Pain on Movement, Tenderness (right side) Cardiovascular: denies: Chest Pain, Palpitations Respiratory: denies: Cough, SOB Gastrointestinal: denies: Abdominal Pain, Constipation, Diarrhea, Nausea, Vomiting Genitourinary: denies: Burning, Dysuria Musculoskeletal: denies: Back Pain, Joint Pain Integumentary: reports: Bruising (scattered, legs and abdomen), Lump (above right clavicle and left chest wall laterally) Neurological: denies: Dizziness, Headache Psychiatric: reports: Anxiety, Depression <Tylor Knowles - Last Filed: 04/04/17 01:49> Physical Exam Vital Signs: Vital Signs Temperature 97.9 F 04/03/17 03:29 Pulse Rate 78 04/03/17 03:29 Respiratory Rate 20 04/03/17 03:29 Blood Pressure 116/60 04/03/17 03:29 O2 Sat by Pulse Oximetry (%) 100 04/02/17 16:25 Labs: CBC, BMP 04/03/17 08:03 04/03/17 08:03 <Anusha Mireles - Last Filed: 04/03/17 18:43> Vital Signs: above entered in error - please see Dr. Mireles's separate consult Vital Signs Temperature 97.9 F 04/03/17 03:29 Pulse Rate 78 04/03/17 03:29 Respiratory Rate 20 04/03/17 03:29 Blood Pressure 116/60 04/03/17 03:29 O2 Sat by Pulse Oximetry (%) 100 04/02/17 16:25 Constitutional: Yes: Well Nourished, No Distress, Calm Eyes: Yes: Conjunctiva Clear, EOM Intact HENT: Yes: Atraumatic, Normocephalic Neck: Yes: Trachea Midline, Decreased ROM, Tenderness (around abscess area), Other (large right supraclavicular fluctuant abscess, now spontaneously draining foul-smelling pus, local erythema, somewhat tender, small pale yellow necrotic focus centrally) Cardiovascular: Yes: Regular Rate and Rhythm, Tachycardia (mild), Murmur Respiratory: Yes: Regular, CTA Bilaterally. No: Wheezes Gastrointestinal: Yes: Normal Bowel Sounds, Soft. No: Distention, Tenderness ...Rectal Exam: Yes: Deferred Renal/: No: CVA Tenderness - Left, CVA Tenderness - Right Musculoskeletal: No: Joint Stiffness, Joint Swelling Extremities: No: Cool, Cyanosis Integumentary: Yes: Bruising (scattered, legs and abdomen), Tattoos, Other (see wound section). No: Jaundice, Rash Wound/Incision: Yes: Draining (R supraclavicular abscess with purulent drainage) , Other (left lower chest wall mid-axillary line with 3-4cm raised, fluctuant, erythematous area, somewhat tender, no active drainage) Neurological: Yes: Alert, Oriented Psychiatric: Yes: Alert, Oriented Labs: CBC, BMP 04/03/17 08:03 04/03/17 08:03 CMP Sodium 136 mmol/L (136-145) 04/03/17 08:03 Potassium 4.1 mmol/L (3.5-5.1) 04/03/17 08:03 Chloride 102 mmol/L (98-107) 04/03/17 08:03 Carbon Dioxide 26 mmol/L (21-32) 04/03/17 08:03 Anion Gap 8 (8-16) 04/03/17 08:03 BUN 8 mg/dL (7-18) 04/03/17 08:03 Creatinine 0.6 mg/dL (0.55-1.02) 04/03/17 08:03 Creat Clearance w eGFR > 60 (>60) 04/03/17 08:03 Random Glucose 98 mg/dL (74-106) D 04/03/17 08:03 Calcium 8.6 mg/dL (8.5-10.1) 04/03/17 08:03 Total Bilirubin 0.5 mg/dL (0.2-1.0) D 04/03/17 08:03 AST 12 U/L (15-37) L 04/03/17 08:03 ALT 18 U/L (12-78) 04/03/17 08:03 Alkaline Phosphatase 68 U/L (45-117) 04/03/17 08:03 Total Protein 6.8 g/dl (6.4-8.2) 04/03/17 08:03 Albumin 2.9 g/dl (3.4-5.0) L 04/03/17 08:03 <Tylor Knowles - Last Filed: 04/04/17 01:49> Imaging - Results Cat Scan: Report Reviewed (right supraclavicular abscess appears mostly subcutaneous, inflammatory changes beneath, but not like last time; also inflammatory changes superiorly to sternocleidomastoid; left chest wall abscess also noted), Image Reviewed <Tylor Knowles - Last Filed: 04/04/17 01:49> Problem List - Problems (1) Neck abscess Assessment/Plan: admitted to medicine antibiotics per ID, including MRSA coverage will need I&D for further unroofing and packing - will do in am at pt's request spontaneously draining and already smaller, less painful will send culture from procedure pain meds per primary team and detox consult ok to resume diet - plan procedure with local anesthetic on floor anticipate need for daily wound care - will need packing changes daily please have primary care provider address possible VNS vs who will do wound care on discharge Code(s): L02.11 - CUTANEOUS ABSCESS OF NECK (2) Cellulitis of neck Code(s): L03.221 - CELLULITIS OF NECK (3) Abscess of chest wall Assessment/Plan: see above, will I&D in am with culture under local will need daily packing changes primary care provider to arrange for wound care on discharge Code(s): L02.213 - CUTANEOUS ABSCESS OF CHEST WALL (4) Asthma Code(s): J45.909 - UNSPECIFIED ASTHMA, UNCOMPLICATED Qualifiers: Asthma severity: unspecified severity Asthma persistence: intermittent Asthma complication type: uncomplicated Qualified Code(s): J45.20 - Mild intermittent asthma, uncomplicated (5) Hypothyroid Code(s): E03.9 - HYPOTHYROIDISM, UNSPECIFIED Qualifiers: Hypothyroidism type: unspecified Qualified Code(s): E03.9 - Hypothyroidism , unspecified (6) Polysubstance dependence including opioid type drug with complication, episodic abuse Code(s): F11.229 - OPIOID DEPENDENCE WITH INTOXICATION, UNSPECIFIED (7) Nicotine dependence Code(s): F17.200 - NICOTINE DEPENDENCE, UNSPECIFIED, UNCOMPLICATED Qualifiers: Nicotine product type: cigarettes Substance use status: uncomplicated Qualified Code(s): F17.210 - Nicotine dependence, cigarettes, uncomplicated (8) Cocaine dependence Code(s): F14.20 - COCAINE DEPENDENCE, UNCOMPLICATED Qualifiers: Substance use status: uncomplicated Qualified Code(s): F14.20 - Cocaine dependence, uncomplicated <Tylor Knowles - Last Filed: 04/04/17 01:49> Assessment/Plan Problem List - Problems (1) Cellulitis of neck Code(s): L03.221 - CELLULITIS OF NECK (2) Neck abscess Code(s): L02.11 - CUTANEOUS ABSCESS OF NECK (3) Abscess of chest wall Code(s): L02.213 - CUTANEOUS ABSCESS OF CHEST WALL (4) Polysubstance dependence including opioid type drug with complication, episodic abuse Code(s): F11.229 - OPIOID DEPENDENCE WITH INTOXICATION, UNSPECIFIED (5) Asthma Code(s): J45.909 - UNSPECIFIED ASTHMA, UNCOMPLICATED Qualifiers: Asthma severity: unspecified severity Asthma persistence: intermittent Asthma complication type: uncomplicated Qualified Code(s): J45.20 - Mild intermittent asthma, uncomplicated (6) Hypothyroid Code(s): E03.9 - HYPOTHYROIDISM, UNSPECIFIED Qualifiers: Hypothyroidism type: unspecified Qualified Code(s): E03.9 - Hypothyroidism , unspecified (7) Nicotine dependence Code(s): F17.200 - NICOTINE DEPENDENCE, UNSPECIFIED, UNCOMPLICATED Qualifiers: Nicotine product type: cigarettes Substance use status: uncomplicated Qualified Code(s): F17.210 - Nicotine dependence, cigarettes, uncomplicated (8) Cocaine dependence Code(s): F14.20 - COCAINE DEPENDENCE, UNCOMPLICATED Qualifiers: Substance use status: uncomplicated Qualified Code(s): F14.20 - Cocaine dependence, uncomplicated this patient very high risk for severe infection and endocarditis plan needs iv line stat as she has no access cannot miss abx ct scan close monitoring that she has no access to drugs detox consult drainage of abscess needed monitor vanco level and adjut doses to keep it between 15 to 20 await for final cx reports hydration rest as per primary <Anusha Mireles - Last Filed: 04/03/17 18:43> Dr. Mireles's entries above in error - please see his separate consult <Tylor Knowles - Last Filed: 04/04/17 01:49>
[2017-04-03] MEDS ORDERED: LIDOCAINE HCL 1%, 10 MG/ML (20ML VIAL) ONE (17:41)
[2017-04-03] MEDS: VANCOMYCIN 1,250 MG in DEXTROSE 5%-WATER - 250 ML IVPB SCH (18:02)
--- NOTE | 2017-04-03 18:21 | PN ---
Progress Note (short form) - Note Progress Note: Vascular Surgery TLC placed in left IJ under US guidance. Guidwire removed. All ports flushed. cxy pending. no complications Phi winchester DO
[2017-04-03] MEDS ORDERED: METHADONE HCL 10 MG TABLET PO ONE ×2 (19:52→23:00)
--- NOTE | 2017-04-03 19:57 | PN ---
Physical Exam: SUBJECTIVE: Patient seen and examined. Pt c/o pain, requesting pain medication. OBJECTIVE: Vital Signs Period Temp Pulse Resp BP Sys/Alarcon Pulse Ox Last 24 Hr 97.9 F-98.8 F 78-80 19-20 115-118/60-62 GENERAL: The patient is awake, alert, and fully oriented, in no acute distress. HEAD: Normal with no signs of trauma. NECK: Right supraclavicular fossa 4-5cm abscess with surrounding erythema, tender to palpation LUNGS: Breath sounds equal, clear to auscultation bilaterally, no wheezes, no crackles, no accessory muscle use. CHEST: 2 cm abscess with mild erythema to Left chest wall in midaxillary line near rib 12 HEART: Regular rate and rhythm, S1, S2 without murmur, rub or gallop. ABDOMEN: Soft, nontender, nondistended, (+) bowel sounds x 4, no guarding. EXTREMITIES: Warm, well-perfused, no edema. PSYCH: Normal mood, normal affect. SKIN: Warm, dry, normal turgor, no rashes or lesions noted Laboratory Results - last 24 hr 04/02/17 04/02/17 04/03/17 18:00 18:00 08:03 WBC 14.5 H RBC 4.34 Hgb 11.1 Hct 34.6 MCV 79.7 L MCH 25.7 MCHC 32.2 RDW 16.9 H Plt Count 309 MPV 7.3 L Absolute Neuts (auto) 11.5 L Absolute Lymphs (auto) 1.5 L Absolute Monos (auto) 1.3 L Absolute Eos (auto) 0.1 Absolute Basos (auto) 0.1 Neutrophils % 79.3 Lymphocytes % 10.7 D Monocytes % 9.0 Eosinophils % 0.6 Basophils % 0.4 Sodium 135 L Potassium 3.7 Chloride 100 Carbon Dioxide 29 Anion Gap 6 L BUN 7 D Creatinine 0.7 Creat Clearance w eGFR > 60 Random Glucose 79 Calcium 8.6 Total Bilirubin 0.3 AST 10 L ALT 21 Alkaline Phosphatase 68 D Total Protein 7.1 Albumin 3.2 L Blood Type O POSITIVE Antibody Screen Negative 04/03/17 08:03 WBC RBC Hgb Hct MCV MCH MCHC RDW Plt Count MPV Absolute Neuts (auto) Absolute Lymphs (auto) Absolute Monos (auto) Absolute Eos (auto) Absolute Basos (auto) Neutrophils % Lymphocytes % Monocytes % Eosinophils % Basophils % Sodium 136 Potassium 4.1 Chloride 102 Carbon Dioxide 26 Anion Gap 8 BUN 8 Creatinine 0.6 Creat Clearance w eGFR > 60 Random Glucose 98 D Calcium 8.6 Total Bilirubin 0.5 D AST 12 L ALT 18 Alkaline Phosphatase 68 Total Protein 6.8 Albumin 2.9 L Blood Type Antibody Screen Active Medications Generic Name Dose Route Start Last Admin Trade Name Freq PRN Reason Stop Dose Admin Acetaminophen 650 mg 04/03/17 01:48 04/03/17 03:50 Tylenol - PO 650 mg Q6H PRN Administration FEVER OR PAIN Albuterol Sulfate 2 puff 04/03/17 01:49 Ventolin Hfa Inhaler - IH Q4H PRN ASTHMA Vancomycin HCl 1,250 mg/ 250 mls @ 166.667 mls/hr 04/03/17 13:30 04/03/17 18: 02 Dextrose IVPB 166.667 mls/hr DAILY TRE Administration Protocol Piperacillin Sod/Tazobactam 100 mls @ 200 mls/hr 04/03/17 14:30 04/03/17 19: 17 Sod 4.5 gm/ Dextrose IVPB Not Given Q8H-IV TRE Dextrose/Sodium Chloride 1,000 mls @ 100 mls/hr 04/03/17 17:00 04/03/17 17:03 D5-Ns - IV 100 mls/hr ASDIR TRE Administration Ketorolac Tromethamine 30 mg 04/03/17 10:31 04/03/17 12:33 Toradol Injection - IVPUSH 04/08/17 10:30 30 mg Q6H PRN Administration PAIN Levothyroxine Sodium 112 mcg 04/03/17 07:00 04/03/17 06:36 Synthroid - PO 112 mcg DAILY@0700 TRE Administration Pantoprazole Sodium 40 mg 04/04/17 10:00 Protonix - PO DAILY TRE IMAGIN04/03/17 CXR 10:30am -> no acute pathology, prominent Right supraclavicular soft tissues. 04/03/17 CXR 6:30pm -> Left IJ line and no PTX. 04/03/17 Echo -> normal Left ventricular systolic function. Mild MR. Mild TR. ASSESSMENT/PLAN: 31yo F with PMH of IVDA (heroin) and prior neck abscess, presents with worsening Right neck abscess and Left chest midaxillary line abscess, admitted for sepsis. # sepsis 2/2 Right neck and Left chest midaxillary line abscesses - leukocytosis, tachycardia, and abscesses - ID (Dr. Mireles) recs appreciated: IV Zosyn and IV Vancomycin started - IVFs - f/u blood cultures - It was very difficult to obtain IV access, took most of the day and staff from the ED, ICU, Anesthesia and Vascular Surgery. Pt now has access via 2 peripheral sites and 1 triple lumen central line. - Surgery Consult - for possible OR guided drainage - f/u Chest CT and Soft Tissue Neck CT - pain control with Tylenol and Ketorolac # polysubstance abuse - Detox Consult (Dr. Fierro) recs appreciated: methadone and valium - monitor for signs of withdrawal # hypothyroidism - continue home medication of Synthroid # FEN - Fluids: D5 @ 100 ml/hr - Electrolytes: wnl, continue to monitor - Nutrition: npo for procedure # Prophylaxis - DVT ppx with stephie SCDs Visit type - Emergency Visit Emergency Visit: Yes ED Registration Date: 04/02/17 Care time: The patient presented to the Emergency Department on the above date and was hospitalized for further evaluation of their emergent condition. - New Patient This patient is new to me today: Yes Date on this admission: 04/03/17 - Critical Care Critical Care patient: No
[2017-04-03] MEDS ORDERED: diazePAM 5 MG TABLET PO SCH (22:00)
[2017-04-04] MEDS ORDERED: LIDOCAINE 1%/EPI 1:100000 (20 ML MULTI DOSE VIAL) INF PRN (01:53)
[2017-04-04] MEDS ORDERED: PT OWN MED DRAWER 7, Y5N ONE ×2 (02:12→15:26)
[2017-04-04] MEDS: PIPERACILLIN/TAZOB 4.5 GM 4.5 GM in DEXTROSE 5%-WATER - 100 ML IVPB SCH ×2 (03:06→10:00)
[2017-04-04] MEDS: LEVOTHYROXINE NA 112 MCG TABLET (FP) PO SCH (06:42)
[2017-04-04 07:29] LABS: MCH 25.9 pg (25.7-33.7); MEAN CELL VOLUME 80.8 fl (80-96); MEAN PLT VOLUME 7.8 fl (7.5-11.1); PLATELET COUNT 308 K/MM3 (134-434); RDW 16.6 % (11.6-15.6); WHITE BLOOD COUNT 10.1 K/mm3 (4.0-10.0)
[2017-04-04 08:33] LABS: ALBUMIN 2.7 g/dl (3.4-5.0); ALK PHOS 67 U/L (45-117); ANION GAP 10 (8-16); BILIRUBIN,TOTAL 0.5 mg/dL (0.2-1.0); CALCIUM 8.5 mg/dL (8.5-10.1); CO2 25 mmol/L (21-32); CREATININE 0.7 mg/dL (0.55-1.02); GLUCOSE,RANDOM 99 mg/dL (74-106); SGOT/AST 11 U/L (15-37); SGPT/ALT 19 U/L (12-78); TOT PROT 6.3 g/dl (6.4-8.2)
[2017-04-04] MEDS ORDERED: PANTOPRAZOLE 40 MG TABLET (FP) PO SCH (10:00)
[2017-04-04] MEDS: diazePAM 5 MG TABLET PO PRN ×2 (10:00→13:51)
[2017-04-04] MEDS ORDERED: METHADONE HCL 10 MG TABLET PO ONE (10:00)
[2017-04-04] MEDS: VANCOMYCIN 1,250 MG in DEXTROSE 5%-WATER - 250 ML IVPB SCH (10:40)
[2017-04-04] MEDS: DEXTROSE 5%-NORMAL SALINE 1,000 ML IV SCH (10:40)
[2017-04-04 12:24] VITALS: BP 116/67
--- NOTE | 2017-04-04 12:47 | PN ---
Teaching Attending Note Name of Resident: [place] Quintana ATTENDING PHYSICIAN STATEMENT Time of evaluation: 9;15 AM I saw and evaluated the patient. I reviewed the resident's note and discussed the case with the resident. I agree with the resident's findings and plan as documented. SUBJECTIVE: Patient seen and examined. reports some pain but comfortable, no fevers, chills , or new complaints. OBJECTIVE: Vital Signs Period Temp Pulse Resp BP Sys/Alarcon Pulse Ox Last 24 Hr 98.0 F-98.8 F 68-85 18-20 112-125/57-68 100 Intake & Output 04/01/17 04/02/17 04/03/17 04/04/17 23:59 23:59 23:59 23:59 Intake Total 500 350 Output Total 1 Balance 500 349 Weight 172 lb General;lying in bed in no acute distress HEENT: right neck 3x4 cm fluctuant mass with overlying erythema and mild tenderness, 2 cm fluctuant mass left lateral chest wall Home Medication List Medication Instructions Recorded Confirmed Type Albuterol Sulfate Inhaler - 1 - 2 puff IH PRN PRN 12/08/16 04/02/17 History [Ventolin Hfa Inhaler -] Levothyroxine [Synthroid -] 1 tab PO DAILY 12/08/16 04/02/17 History Active Medications Generic Name Dose Route Start Last Admin Trade Name Freq PRN Reason Stop Dose Admin Acetaminophen 650 mg 04/03/17 01:48 04/03/17 03:50 Tylenol - PO 650 mg Q6H PRN Administration FEVER OR PAIN Albuterol Sulfate 2 puff 04/03/17 01:49 Ventolin Hfa Inhaler - IH Q4H PRN ASTHMA Diazepam 10 mg 04/03/17 19:52 04/04/17 10:00 Valium - PO 04/06/17 19:51 10 mg Q4H PRN Administration WITHDRAWAL(CONT SUBST) Diazepam 10 mg 04/03/17 22:00 04/03/17 23:11 Valium - PO 10 mg HS TRE Administration Vancomycin HCl 1,250 mg/ 250 mls @ 166.667 mls/hr 04/03/17 13:30 04/04/17 10: 40 Dextrose IVPB 166.667 mls/hr DAILY TRE Administration Protocol Piperacillin Sod/Tazobactam 100 mls @ 200 mls/hr 04/03/17 14:30 04/04/17 10: 00 Sod 4.5 gm/ Dextrose IVPB 200 mls/hr Q8H-IV TRE Administration Dextrose/Sodium Chloride 1,000 mls @ 100 mls/hr 04/03/17 17:00 04/04/17 10:40 D5-Ns - IV 100 mls/hr ASDIR TRE Administration Ketorolac Tromethamine 30 mg 04/03/17 10:31 04/03/17 12:33 Toradol Injection - IVPUSH 04/08/17 10:30 30 mg Q6H PRN Administration PAIN Levothyroxine Sodium 112 mcg 04/03/17 07:00 04/04/17 06:42 Synthroid - PO 112 mcg DAILY@0700 TRE Administration Lidocaine/Epinephrine 20 ml 04/04/17 01:53 Xylocaine 1%-Epi 1:100,000 INF ONCE PRN WOUND CARE Methadone HCl 15 mg 04/05/17 10:00 Dolophine - PO 04/05/17 23:59 ONCE ONE Methadone HCl 5 mg 04/08/17 06:00 Dolophine - PO 04/08/17 23:59 ONCE@0600 ONE Methadone HCl 15 mg 04/06/17 10:00 Dolophine - PO 04/06/17 23:59 ONCE ONE Methadone HCl 10 mg 04/07/17 10:00 Dolophine - PO 04/07/17 10:01 ONCE ONE Pantoprazole Sodium 40 mg 04/04/17 10:00 04/04/17 10:00 Protonix - PO 40 mg DAILY TRE Administration Laboratory Results - last 24 hr 04/04/17 04/04/17 07:00 07:00 WBC 10.1 H D RBC 4.16 Hgb 10.8 Hct 33.6 MCV 80.8 MCH 25.9 MCHC 32.0 RDW 16.6 H Plt Count 308 MPV 7.8 Sodium 140 Potassium 3.6 Chloride 105 Carbon Dioxide 25 Anion Gap 10 BUN 7 Creatinine 0.7 Creat Clearance w eGFR > 60 Random Glucose 99 Calcium 8.5 Total Bilirubin 0.5 AST 11 L ALT 19 Alkaline Phosphatase 67 Total Protein 6.3 L Albumin 2.7 L Microbiology 04/02/17 18:00 Blood - Peripheral Venous Blood Culture - Preliminary NO GROWTH OBTAINED AFTER 24 HOURS, INCUBATION TO CONTINUE FOR 4 DAYS. 04/02/17 17:45 Blood - Peripheral Venous Blood Culture - Preliminary NO GROWTH OBTAINED AFTER 24 HOURS, INCUBATION TO CONTINUE FOR [address] neck reviewed ASSESSMENT AND PLAN: 31 yof with PMHx of IVDU (heroine use), hypothyroidism, prior neck abscesses s/ p IR guided drainage, recently admitted to [facility] for the same, left after 4 days, was planned for surgical drainage comes to [facility] ED. -Right neck abscess/Left upper abdomen skin wall abscess -Early Sepsis -IVDU -Hypothyroidism -h/o prior neck abscess Plan: -Zosyn/vancomycin day 1, prior h/o MRSA. Currently with central access, also peripheral placed (however has h/o losing peripheral access often and needs IV antibiotics for her sepsis currently). ID input noted. Discussed with Dr. Knowles, plan for bedside drainage today, will follow up. 2D echo noted. Detox rehab consulted with Dr. Fierro, recommend methadon/valdium detox, continue for now. 2D echo noted. Discussed with Dr. Mireles, follow up antibiotic recs, blood cultures. GI/DVTPPx Dispo pending improvement in medical issues.
[2017-04-04] MEDS ORDERED: diazePAM 5 MG TABLET PO PRN (14:20)
[2017-04-04] MEDS ORDERED: diazePAM 5 MG TABLET PO ONE (14:20)
[2017-04-04] MEDS ORDERED: ZOLPIDEM TARTRATE 5 MG TABLET PO PRN (14:21)
[2017-04-04] MEDS ORDERED: PRENATAL VITAMINS W/ FOLIC ACID TABLET (FP) PO SCH (14:30)
[2017-04-04] MEDS ORDERED: CYCLOBENZAPRINE HCL 10 MG TABLET (FP) PO SCH (14:30)
--- NOTE | 2017-04-04 14:36 | PN ---
[facility] Progress Note Note: 31 yo f w h/o polysubstance use, opioid and benzodiazipine dependence, known to me from prior admissions to [facility] for heroin and xanax detoxification, readmitted yesterday with increasing abscess/cellulitis neck from injecting drug use. In light of patient not completing antibiotic treatment in past and episodes of signing out AMA we should make every attempt to keep her comfortable while in hospital so that she does not sign out again and is able to complete her treatment. Chart reviewed, labs reviewed, notes reviewed, imaging reviewed. Recommendations: Patient appears comfortable on the 20mg dose of methadone with the valium she has been receiving for the past 2 days. Will stop the methadone detox and maintain her while hospitalized on dose of 20mg daily which appears well tolerated. When she completes her antibioitc treatment she can be transferred to [facility] for opioid detoxification and then rehab if she is agreeable. Benzodiazepine detoxification started in light of past history of benzodependence dependence, with valium. Will cont valium qhs for sleep, may also give prn ambien as ordered. I ordered clonidine and flexeril ordered around the clock for symptomatic relief of withdrawal and pain management. Agree with Ketoralac for pain. Please call with any questions. Luis Fierro MD [phone]
[2017-04-04 15:20] VITALS: PULSE 76; TEMP 98.6
--- NOTE | 2017-04-04 15:25 | PN ---
Progress Note, Physician History of Present Illness: Pt seen and examined. Events, labs/radiology results noted. Currently afebrile, without acute distress. - Current Medication List Current Medications: Active Medications Acetaminophen (Tylenol -) 650 mg PO Q6H PRN PRN Reason: FEVER OR PAIN Last Admin: 04/03/17 03:50 Dose: 650 mg Albuterol Sulfate (Ventolin Hfa Inhaler -) 2 puff IH Q4H PRN PRN Reason: ASTHMA Clonidine (Catapres -) 0.1 mg PO BID TRE Cyclobenzaprine HCl (Flexeril -) 10 mg PO TID TRE Diazepam (Valium -) 10 mg PO Q4H PRN PRN Reason: WITHDRAWAL(CONT SUBST) Stop: 04/06/17 19:51 Last Admin: 04/04/17 13:51 Dose: 10 mg Diazepam (Valium -) 10 mg PO HS TRE Last Admin: 04/03/17 23:11 Dose: 10 mg Diazepam (Valium -) 10 mg PO Q4H PRN PRN Reason: WITHDRAWAL(CONT SUBST) Stop: 04/07/17 14:19 Diazepam (Valium -) 5 mg PO TID TRE Stop: 04/05/17 22:01 Diazepam (Valium -) 5 mg PO BID TRE Stop: 04/07/17 22:01 Diazepam (Valium -) 5 mg PO DAILY TRE Stop: 04/08/17 10:01 Vancomycin HCl 1,250 mg/ (Dextrose) 250 mls @ 166.667 mls/hr IVPB DAILY TRE PRN Reason: Protocol Last Admin: 04/04/17 10:40 Dose: 166.667 mls/hr Piperacillin Sod/Tazobactam (Sod 4.5 gm/ Dextrose) 100 mls @ 200 mls/hr IVPB Q8H-IV TRE Last Admin: 04/04/17 10:00 Dose: 200 mls/hr Dextrose/Sodium Chloride (D5-Ns -) 1,000 mls @ 100 mls/hr IV ASDIR TRE Last Admin: 04/04/17 10:40 Dose: 100 mls/hr Ketorolac Tromethamine (Toradol Injection -) 30 mg IVPUSH Q6H PRN PRN Reason: PAIN Stop: 04/08/17 10:30 Last Admin: 04/03/17 12:33 Dose: 30 mg Levothyroxine Sodium (Synthroid -) 112 mcg PO DAILY@0700 [facility] Last Admin: 04/04/17 06:42 Dose: 112 mcg Lidocaine/Epinephrine (Xylocaine 1%-Epi 1:100,000) 20 ml INF ONCE PRN PRN Reason: WOUND CARE Methadone HCl (Dolophine -) 15 mg PO ONCE ONE Stop: 04/06/17 23:59 Methadone HCl (Dolophine -) 20 mg PO DAILY@0600 [facility] Pantoprazole Sodium (Protonix -) 40 mg PO DAILY [facility] Last Admin: 04/04/17 10:00 Dose: 40 mg Multivit/Folic Acid/Iron ( Vitamins (Sjr) -) 1 tab PO DAILY [facility] Thiamine HCl (Vitamin B1 -) 100 mg PO HS [facility] Zolpidem Tartrate (Ambien -) 10 mg PO HS PRN PRN Reason: INSOMNIA - Objective Vital Signs: Vital Signs Temperature 98.1 F 04/04/17 10:00 Pulse Rate 74 04/04/17 10:00 Respiratory Rate 18 04/04/17 10:00 Blood Pressure 116/67 04/04/17 10:00 O2 Sat by Pulse Oximetry (%) 100 04/03/17 21:00 Constitutional: Yes: No Distress Cardiovascular: Yes: Regular Rate and Rhythm Respiratory: Yes: Regular Gastrointestinal: Yes: Normal Bowel Sounds, Soft Genitourinary: Yes: WNL Wound/Incision: Yes: Other (Rt neck dressing intact) Neurological: Yes: Alert, Oriented Labs: CBC, BMP 04/04/17 07:00 04/04/17 07:00 INR, PTT INR 1.11 (0.82-1.09) 04/02/17 18:00 Microbiology 04/02/17 18:00 Blood - Peripheral Venous Blood Culture - Preliminary NO GROWTH OBTAINED AFTER 24 HOURS, INCUBATION TO CONTINUE FOR 4 DAYS. 04/02/17 17:45 Blood - Peripheral Venous Blood Culture - Preliminary NO GROWTH OBTAINED AFTER 24 HOURS, INCUBATION TO CONTINUE FOR 4 DAYS. Problem List - Problems (1) IV drug abuse Code(s): F19.10 - OTHER PSYCHOACTIVE SUBSTANCE ABUSE, UNCOMPLICATED (2) Abscess of chest wall Code(s): L02.213 - CUTANEOUS ABSCESS OF CHEST WALL (3) Drug abuse and dependence Code(s): F19.20 - OTHER PSYCHOACTIVE SUBSTANCE DEPENDENCE, UNCOMPLICATED (4) Neck abscess Code(s): L02.11 - CUTANEOUS ABSCESS OF NECK Assessment/Plan 31 y.o. female with history of IVDU presenting with Rt neck/Lt chest wall abscess (previous admission with MRSA isolated from wound cultures) with previous hospitalizations but signing out AMA prior to completing antibiotic treatment - awaiting I+D, send wound cultures - blood cultures without growth thus far - continue current antibiotics for now - f/u official echo report discussed importance of completing antibiotic therapy and potential negative consequences if noncompliant with pt
--- NOTE | 2017-04-04 16:47 | CONSULT ---
Consult Detox [facility] - Alcohol/Substance Use Hx Alcohol Use: No - Past Medical History Pulmonary: Yes: Asthma ...LMP: 03/10/17 ...: No Infectious Disease: Yes: MRSA (from last admission) Psych: Yes: Addictions (heroin IV; cocaine snorting, occ MJ, 1/2ppd tob; pt states she has had withdrawal symptoms if she does not use), Anxiety, Depression , Other (borderline personality disorder (per pt)) Endocrine: Yes: Hypothyroidism - Past Surgical History Past Surgical History: Yes: Cholecystectomy (laparoscopic, ~4 yrs ago) Assessment Plan - Plan Plan: Patient discharged before consult could be completed.
--- NOTE | 2017-04-04 17:40 | DS ---
Physical Exam: SUBJECTIVE: Patient seen and examined. In the morning when I saw Ms. Peñaloza, she was agreeable to have I&D procedure done later in the morning; however, when Dr. Knowles arrived to perform the procedure at bedside Ms. Peñaloza refused. Pt left AMA in the afternoon. OBJECTIVE: Vital Signs Period Temp Pulse Resp BP Sys/Alarcon Pulse Ox Last 24 Hr 98.1 F-98.8 F 68-85 18-20 112-125/57-68 100 PHYSICAL EXAM GENERAL: The patient is awake, alert, and fully oriented, in no acute distress. HEAD: Normal with no signs of trauma. NECK: Right supraclavicular fossa 4cm abscess self draining some serosanguinous fluid with surrounding erythema, tender to palpation LUNGS: Breath sounds equal, clear to auscultation bilaterally, no wheezes, no crackles, no accessory muscle use. CHEST: 2 cm abscess with mild erythema to Left chest wall in midaxillary line near rib 8 HEART: Regular rate and rhythm, S1, S2 without murmur, rub or gallop. ABDOMEN: Soft, nontender, nondistended. EXTREMITIES: Warm, well-perfused, no edema. SKIN: Warm, dry, normal turgor, no rashes or lesions noted LABS Laboratory Results - last 24 hr 04/04/17 04/04/17 07:00 07:00 WBC 10.1 H D RBC 4.16 Hgb 10.8 Hct 33.6 MCV 80.8 MCH 25.9 MCHC 32.0 RDW 16.6 H Plt Count 308 MPV 7.8 Sodium 140 Potassium 3.6 Chloride 105 Carbon Dioxide 25 Anion Gap 10 BUN 7 Creatinine 0.7 Creat Clearance w eGFR > 60 Random Glucose 99 Calcium 8.5 Total Bilirubin 0.5 AST 11 L ALT 19 Alkaline Phosphatase 67 Total Protein 6.3 L Albumin 2.7 L HOSPITAL COURSE: Date of Admission:04/02/17 Date of Discharge: 04/04/17 31yo F with PMH of IVDA (heroin) and prior neck abscess, presents with worsening Right neck abscess and Left chest midaxillary line abscess, admitted for sepsis. Once vascular access was obtained, IV antibiotics and IV fluids were initiated and a contrast-enhanced Soft Tissue Neck and Chest CT was obtained for surgery planning. Pt assessed by Dr. Mireles (ID) and started on Zosyn and Vancomycin. Pt assessed by Dr. Fierro (Detox) and started on Methadone. Pt assessed by Dr. Knowles (Surgery), who prepared for I&D. Pt refused I&D procedure this morning and later left AMA. All vascular access was removed prior to pt leaving. Pt adamantly refused continued hospitalization and wanted to leave AMA. I explained that leaving without receiving proper medical treatment was dangerous and could certainly lead to worsening of her currently condition, if not . I used lay terminology. I answered all questions. It is clear to me that pt understands the risks and benefits of continuous hospital stay and leaving AMA. Pt has the capacity to make her own decisions. Pt agrees to return to the ER if symptoms worsen. 04/03/17 CXR 10:30am -> no acute pathology, prominent Right supraclavicular soft tissues. 04/03/17 CXR 6:30pm -> Left IJ line and no PTX. 04/03/17 Echo -> normal Left ventricular systolic function. Mild MR. Mild TR. 04/03/17 Soft Tissue Neck and Chest CT -> 1. Approximately 2.6 x 3.0 x 3.3 cm right supraclavicular abscess as described above with surrounding phlegmon/ inflammatory tissue effacing the right supraclavicular fat extending along the right brachial plexus and extending into the infrahyoid right neck. 2. Thickening of the distal right sternocleidomastoid muscle is most likely secondary/reactive inflammation. Numerous right supraclavicular lymph nodes and prominent right axillary lymph node are presumably reactive. 3. Approximately 2.2 x 1.7 cm inferolateral left chest wall abscess directly overlying the left anterolateral eighth rib. 4. Left internal jugular approach triple-lumen central venous catheter in place, with catheter tip terminating in the right atrium. 5. Diffusely prominent soft tissue throughout Waldeyer's ring is more than expected for age, and may represent lymphoid hyperplasia. Other processes are not excluded. Please correlate with direct visualization and patient's immune status. 6. Approximately 2.3 x 1.5 cm right adrenal gland nodule is indeterminant. This may represent an adenoma. Other lesions cannot be excluded. Please correlate with biochemical markers. Complete characterization requires multiphase contrast-enhanced MRI or CT of the adrenals. 7. Enlarged thyroid gland with approximately 1 cm nodule in the right lobe. Please correlate clinically with thyroid function tests and with nonemergent, outpatient thyroid sonogram. 8. Splenomegaly. 9. A 2 mm nonobstructing right renal calculus. 04/02/17 blood cultures (-) x 48 hrs Minutes to complete discharge: 50 Discharge Summary Reason For Visit: ABSCESS OF NECK Current Active Problems Abscess (Acute) IV drug abuse (Acute) Condition: Guarded - Instructions Disposition: AGAINST MEDICAL ADVICE - Home Medications Comprehensive Discharge Medication List: Ambulatory Orders Albuterol Sulfate Inhaler - [Ventolin Hfa Inhaler -] 1 - 2 puff IH PRN PRN 12/08 Levothyroxine [Synthroid -] 1 tab PO DAILY 12/08/16 This patient is new to me today: No Emergency Visit: Yes ED Registration Date: 04/02/17 Care time: The patient presented to the Emergency Department on the above date and was hospitalized for further evaluation of their emergent condition. Critical Care patient: No - Discharge Referral Referred to [facility] Med [facility].C.: No
--- NOTE | 2017-04-04 19:02 | PN ---
Progress Note (short form) - Note Progress Note: Pt seen and examined in bed. Right supraclavicular abscess has continued to drain pus onto gauze dressing and is smaller yet than yesterday, still with expressible purulence, tender. Pt does not feel it still needs to be drained. Vital Signs Period Temp Pulse Resp BP Sys/Alarcon Pulse Ox Last 24 Hr 98.1 F-98.8 F 68-85 18-20 112-125/57-68 99-100 PE: left chest wall abscess similar to yesterday, fluctuant right supraclavicular abscess much flatter, but still with purulent drainage, granulator tender L IJ CVC with dressing coming off pt tearful, anxious CBC, BMP 04/04/17 07:00 04/04/17 07:00 A/P: IVDU with h/o MRSA with right supraclavicular abscess and left chest wall abscess in need of I&D CT last night showed that R abscess has fluid collection mainly superficial/ subcutaneous has drained a lot spontaneously, but would benefit from formal I&D and packing to irrigate out remaining pus and ensure cavity can heal Discussed with patient risks, benefits and alternatives of incision and drainage of right supraclavicular and left chest wall abscesses, including but not limited to bleeding, infection, recurrence; alternatives include antibiotics and no surgery - risks of this include expansion of infection, endocarditis, sepsis, recurrence, . Patient states she is "not ready" to have procedures done. She does not feel the right sided one needs to be drained anymore. She understands there is no other way to drain the pus, but would like to wait a while to sign the consent and have the procedure done later today. It was explained that the sooner a culture is sent to the lab, the sooner results would be available for guiding antibiotic therapy, and speeding the healing process. She understands, but does not want to proceed at this time. Will check back later today; nurse will call if pt is ready to sign consent and proceed with I&D's. Supplies are available on the floor. Problem List - Problems (1) Neck abscess Code(s): L02.11 - CUTANEOUS ABSCESS OF NECK (2) Cellulitis of neck Code(s): L03.221 - CELLULITIS OF NECK (3) Abscess of chest wall Code(s): L02.213 - CUTANEOUS ABSCESS OF CHEST WALL (4) Asthma Code(s): J45.909 - UNSPECIFIED ASTHMA, UNCOMPLICATED Qualifiers: Asthma severity: unspecified severity Asthma persistence: intermittent Asthma complication type: uncomplicated Qualified Code(s): J45.20 - Mild intermittent asthma, uncomplicated (5) Hypothyroid Code(s): E03.9 - HYPOTHYROIDISM, UNSPECIFIED Qualifiers: Hypothyroidism type: unspecified Qualified Code(s): E03.9 - Hypothyroidism , unspecified (6) Polysubstance dependence including opioid type drug with complication, episodic abuse Code(s): F11.229 - OPIOID DEPENDENCE WITH INTOXICATION, UNSPECIFIED (7) Nicotine dependence Code(s): F17.200 - NICOTINE DEPENDENCE, UNSPECIFIED, UNCOMPLICATED Qualifiers: Nicotine product type: cigarettes Substance use status: uncomplicated Qualified Code(s): F17.210 - Nicotine dependence, cigarettes, uncomplicated (8) Cocaine dependence Code(s): F14.20 - COCAINE DEPENDENCE, UNCOMPLICATED Qualifiers: Substance use status: uncomplicated Qualified Code(s): F14.20 - Cocaine dependence, uncomplicated
--- NOTE | 2017-04-04 19:31 | HOSP ---
Physical Examination Vital Signs: Vital Signs Temperature 98.6 F 04/04/17 15:19 Pulse Rate 76 04/04/17 15:19 Respiratory Rate 18 04/04/17 10:00 Blood Pressure 116/67 04/04/17 10:00 O2 Sat by Pulse Oximetry (%) 99 04/04/17 09:00 Constitutional: Yes: Anxious Eyes: Yes: WNL, Conjunctiva Clear HENT: Yes: WNL, Atraumatic, Normocephalic Neck: Yes: WNL, Supple, Trachea Midline, Other (central line present on left side of the neck) Labs: CBC, BMP 04/04/17 07:00 04/04/17 07:00 Hospitalist Encounter Assessment: We were called to assess the pt. The nurse called that the pt is anxious and wants to leave AMA. The pt was found to anxious and wanted to go home. Me and Dr. Quintana assessed the pt and removed central line on left side of the neck. We asked her to exhale and then central line was removed with application of pressure for 10 minutes. No bleeding was noted. We also discussed risk of leaving the hospital against medical advice like bleeding, fever, chills, severe pain, dizziness, weakness, even . She verbalized understanding but wanted to leave the hospital. Visit type - Emergency Visit Emergency Visit: Yes ED Registration Date: 04/02/17 Care time: The patient presented to the Emergency Department on the above date and was hospitalized for further evaluation of their emergent condition. - New Patient This patient is new to me today: Yes Date on this admission: 04/05/17 - Critical Care Critical Care patient: No
[2017-04-04] MEDS ORDERED: VANCOMYCIN 1,000 MG in DEXTROSE 5%-WATER - 250 ML IVPB SCH (22:00)
[2017-04-04] MEDS ORDERED: cloNIDine HCL 0.1 MG TABLET PO SCH (22:00)
[2017-04-04] MEDS ORDERED: THIAMINE HCL 100 MG TABLET (FP) PO SCH (22:00)
[2017-04-04] MEDS ORDERED: diazePAM 5 MG TABLET PO SCH (22:00)
[2017-04-05] MEDS ORDERED: METHADONE HCL 10 MG TABLET PO SCH (06:00)
[2017-04-05] MEDS ORDERED: METHADONE HCL 5 MG TABLET PO ONE (10:00)
[2017-04-06] MEDS ORDERED: diazePAM 5 MG TABLET PO SCH (10:00)
[2017-04-06] MEDS ORDERED: METHADONE HCL 5 MG TABLET PO ONE (10:00)
[2017-04-07] MEDS ORDERED: METHADONE HCL 10 MG TABLET PO ONE (10:00)
[2017-04-08] MEDS ORDERED: METHADONE HCL 5 MG TABLET PO ONE (06:00)
[2017-04-08] MEDS ORDERED: diazePAM 5 MG TABLET PO SCH (10:00)
== END 2017-04-04 18:08 | disposition left against medical advice (07) | DRG 383 ==
LOC: JER 16:17 → JERBED 22:02 → J8W 04-03 19:09
PROVIDERS: ADMIT Internal Medicine; ATTEND Hospitalist
PROC: 05HN33Z Insertion of Infusion Device into Left Internal Jugular Vein, Percutaneous Approach (ICD-10-PCS; principal; 2017-04-03)
PROC: B514ZZA Fluoroscopy of Left Jugular Veins, Guidance (ICD-10-PCS; 2017-04-03)
DX: L03.221 Cellulitis of neck (principal); L02.11 Cutaneous abscess of neck; L02.413 Cutaneous abscess of right upper limb; E03.9 Hypothyroidism, unspecified; F43.10 Post-traumatic stress disorder, unspecified; F17.200 Nicotine dependence, unspecified, uncomplicated; L02.213 Cutaneous abscess of chest wall; F41.8 Other specified anxiety disorders; F60.3 Borderline personality disorder; F14.20 Cocaine dependence, uncomplicated; J45.20 Mild intermittent asthma, uncomplicated; F11.229 Opioid dependence with intoxication, unspecified; D72.828 Other elevated white blood cell count; R00.0 Tachycardia, unspecified; F13.20 Sedative, hypnotic or anxiolytic dependence, uncomplicated
CPT/HCPCS: 36415; 70491-TC; 71010-TC; 71260-TC; 80053; 84703; 85025; 85027; 85610; 86850; 86900; 86901; 87040; 93306-TC; 99285-25

== ENCOUNTER 2017-05-27 12:23 | Inpatient (IN) | payer OTHER ==
[2017-05-27 14:52] VITALS: BMI 31.4
--- NOTE | 2017-05-27 16:27 | HP ---
COWS - Scale Resting Pulse: 1= AK 81-100 Sweatin=Flushed/Facial Moisture Restless Observation: 3= Extraneous Movement Pupil Size: 1= Pupils >than Normal Bone or Joint Aches: 1= Mild Discomfort Runny Nose/ Eye Tearin= Runny Nose/Eyes GI Upset > 30mins: 3= Vomiting/Diarrhea Tremor Observation: 2= Slight Tremor Visible Yawning Observation: 4= Several Times/Minute Anxiety or Irritability: 2=Irritable/Anxious Goose Flesh Skin: 3=Piloerection COWS Score: 24 Admission ROS S - HPI Chief Complaint: withdrawal symptoms Allergies/Adverse Reactions: Allergies Allergy/AdvReac Type Severity Reaction Status Date / Time No Known Allergies Allergy Verified 05/27/17 16:58 History of Present Illness: 32 yo female with hx IV heroin, nicotine and ahsan dependence is here for detox. Reports currently smokes 10 cigarette per day. Past medical history of hypothyroid and asthma. Denies suicidal / homicidal or suicide attempts. Last Detox [facility] 03/17/17 - 03/21/17. Reports no sustained period of sobriety. Exam Limitations: No Limitations - Ebola screening Have you traveled outside of the country in the last 21 days: No Have you had contact with anyone from an Ebola affected area: No Have you been sick,other than usual withdrawal symptoms: No Do you have a fever: No - Review of Systems Constitutional: Chills EENT: reports: No Symptoms Reported Respiratory: reports: Cough (x 1 day) Cardiac: reports: No Symptoms Reported GI: reports: Nausea, Poor Fluid Intake, Vomiting : reports: No Symptoms Reported Musculoskeletal: reports: Joint Pain Integumentary: reports: No Symptoms Reported Neuro: reports: No Symptoms reported Endocrine: reports: See HPI, Other Hematology: reports: No Symptoms Reported Psychiatric: reports: Orientated x3, Depressed Other Systems: Reviewed and Negative Patient History - Patient Medical History Hx Anemia: Yes (during ) Hx Asthma: Yes Hx Chronic Obstructive Pulmonary Disease (COPD): No Hx Cancer: No Hx Cardiac Disorders: No Hx Congestive Heart Failure: No Hx Hypertension: No Hx Hypercholesterolemia: No Hx Pacemaker: No HX Cerebrovascular Accident: No Hx Seizures: No Hx Dementia: No Hx Diabetes: No Hx Gastrointestinal Disorders: No Hx Liver Disease: No Hx Genitourinary Disorders: No Hx Sexually Transmitted Disorders: No Hx Renal Disease (ESRD): No Hx Thyroid Disease: Yes (hypothyroidism.) Hx Human Immunodeficiency Virus (HIV): No Hx Hepatitis C: No Hx Depression: Yes Hx Suicide Attempt: No Hx Bipolar Disorder: No Hx Schizophrenia: No - Patient Surgical History Past Surgical History: Yes Hx Neurologic Surgery: No Hx Cataract Extraction: No Hx Cardiac Surgery: No Hx Lung Surgery: No Hx Breast Surgery: No Hx Breast Biopsy: No Hx Abdominal Surgery: Yes Hx Appendectomy: No Hx Cholecystectomy: Yes (01/2013) Hx Genitourinary Surgery: No Hx Section: No Hx Orthopedic Surgery: No Hx Hysterectomy: No Other Surgical History: Bartholin's cyst removed 09/22/14 Anesthesia Reaction: No - PPD History Previous Implant?: Yes Date: 03/19/17 Results: 0 mm PPD to be Administered?: No - Reproductive History Patient is a Female of Child Bearing Age (11 -55 yrs old): Yes Last Menstrual Period: 05/24/17 Patient : No - Smoking Cessation Smoking history: Current every day smoker Have you smoked in the past 12 months: Yes Aproximately how many cigarettes per day: 10 Cigars Per Day: 0 Hx Chewing Tobacco Use: No Initiated information on smoking cessation: Yes 'Breaking Loose' booklet given: 05/27/17 - Substance & Tx. History Hx Alcohol Use: No Hx Substance Use: Yes Substance Use Type: Cocaine, Heroin Hx Substance Use Treatment: Yes ([facility] 03/17/17 - 03/21/17) - Substances Abused Cocaine Route: Smoking Frequency: 1-2 times per week Amount used: " hit here and there " Age of first use: 13 Date of Last Use: 05/25/17 Heroin Route: Injection Frequency: Daily Amount used: 1 bundle Age of first use: 19 Date of Last Use: 05/26/17 Family Disease History - Family Disease History Family Disease History: Respiratory: Father (asthma, drug overdose ), Other: Father Admission Physical Exam S - Vital Signs Vital Signs: Vital Signs - 24 hr 05/27/17 14:21 Temperature 98.9 F Pulse Rate 94 H Respiratory 20 Rate Blood Pressure 118/82 - Physical General Appearance: Yes: Disheveled, Irritable, Sweating, Anxious HEENTM: Yes: EOMI, Hearing grossly Normal, Normal ENT Inspection, Normocephalic , Normal Voice, Pharynx Normal, Tm's normal Respiratory: Yes: Chest Non-Tender, Lungs Clear, Normal Breath Sounds, No Respiratory Distress, No Accessory Muscle Use Neck: Yes: No masses,lesions,Nodules, Trachea in good position Breast: Yes: Breast Exam Deferred Cardiology: Yes: Regular Rhythm, Regular Rate, S1, S2 Abdominal: Yes: Normal Bowel Sounds, Non Tender, Flat Genitourinary: Yes: Within Normal Limits (reports no urinary symptoms) Back: Yes: Within Normal Limits, Normal Inspection Musculoskeletal: Yes: full range of Motion, Gait Steady, Pelvis Stable Extremities: Yes: Normal Capillary Refill, Normal Inspection, Normal Range of Motion, Non-Tender Neurological: Yes: crayon painter II-XII NML intact, Fully Oriented, Motor Strength 5/5, Depressed Affect Integumentary: Yes: Dry, Warm, Erythema (right josiah), Track [place] ( bilateral hands in differnt healing stages) Lymphatic: Yes: Within Normal Limits - Diagnostic (1) Cellulitis Current Visit: No Status: Acute Qualifiers: Site of cellulitis: extremity Site of cellulitis of extremity: upper extremity Laterality: right Qualified Code(s): L03.113 - Cellulitis of right upper limb Comment: hand (2) IV drug abuse Current Visit: Yes Status: Chronic (3) Opioid dependence with withdrawal Current Visit: Yes Status: Acute (4) GERD (gastroesophageal reflux disease) Current Visit: Yes Status: Chronic (5) Hypothyroid Current Visit: Yes Status: Chronic Qualifiers: Hypothyroidism type: unspecified Qualified Code(s): E03.9 - Hypothyroidism , unspecified (6) Nicotine dependence Current Visit: Yes Status: Chronic Qualifiers: Nicotine product type: cigarettes Substance use status: uncomplicated Qualified Code(s): F17.210 - Nicotine dependence, cigarettes, uncomplicated Cleared for Admission [facility] - Detox or Rehab [facility] Level of Care: Medically Managed Detox Regimen/Protocol: Methadone [facility] Breath Alcohol Content Breath Alcohol Content: 0 Urine Pregancy Test - Result Urine Test Results: Negative- NO Line Present Urine Drug Screen - Results Drug Screen Negative: No Urine Drug Screen Results: ORIANA-Cocaine, OPI-Opiates
[2017-05-27] MEDS ORDERED: MAGNESIUM CITRATE 300 ML BOTTLE PO PRN (16:39)
[2017-05-27] MEDS ORDERED: MAGNESIUM HYDROX 2400MG/30ML ORAL SUSPENSION 30 ML CUP PO PRN (16:39)
[2017-05-27] MEDS ORDERED: LOPERAMIDE HCL 2 MG CAPSULE PO PRN (16:39)
[2017-05-27] MEDS ORDERED: NICOTINE POLACRILEX 2 MG GUM BC PRN (16:39)
[2017-05-27] MEDS ORDERED: MAG HYDROX/AL HYDROX/SIMETH 30 ML UNIT-DOSE CUP PO PRN (16:39)
[2017-05-27] MEDS ORDERED: P-EPHED 60MG/TRIPROLIDI 2.5MG TABLET PO PRN (16:39)
[2017-05-27] MEDS ORDERED: IBUPROFEN 400 MG TABLET (FP) PO PRN (16:39)
[2017-05-27] MEDS ORDERED: guaiFENesin/D-METHORPHAN HB 10 ML UNIT-DOSE CUPS PO PRN (16:39)
[2017-05-27] MEDS ORDERED: MENTHOL/PHENOL 1 EACH UD MM PRN (16:39)
[2017-05-27] MEDS ORDERED: ALBUTEROL SO4 18 GM HFA INHALER IH PRN (16:41)
[2017-05-27] MEDS ORDERED: ALBUTEROL SO4 2.5/IPRATROPIUM 0.5 INH SOL 3 ML VIAL.NEB. NEB PRN (16:41)
[2017-05-27] MEDS ORDERED: METHADONE HCL 10 MG TABLET (FOR DETOX USE ONLY) PO ONE ×2 (18:00→23:00)
[2017-05-27] MEDS: diazePAM 5 MG TABLET PO PRN ×2 (18:15→22:26)
[2017-05-27] MEDS: CEPHALEXIN MONOHYDRATE 500 MG CAPSULE (UD) PO SCH ×2 (18:16→23:54)
[2017-05-27] MEDS: THIAMINE HCL 100 MG TABLET (FP) PO SCH (22:26)
[2017-05-27 23:14] LABS: URINE APPEARANCE CLOUDY; URINE BILIRUBIN NEGATIVE (NEGATIVE); URINE BLOOD 2+ (NEGATIVE); URINE COLOR YELLOW; URINE GLUCOSE (UA) NEGATIVE (NEGATIVE); URINE KETONE 1+ (NEGATIVE); URINE LEUK ESTERASE NEGATIVE (NEGATIVE); URINE NITRITE NEGATIVE (NEGATIVE); URINE PROTEIN NEGATIVE (NEGATIVE); URINE UROBILINOGEN NEGATIVE mg/dL (0.2-1.0)
[2017-05-27] MEDS: BACITRACIN 0.9 GM PACKET TP SCH (23:20)
[2017-05-27 23:22] LABS: EPI CELLS MANY /HPF (FEW); URINE BACTERIA RARE /hpf (NONE SEEN); URINE MUCUS RARE
[2017-05-28] MEDS: diazePAM 5 MG TABLET PO PRN ×4 (06:19→22:35)
[2017-05-28] MEDS: CEPHALEXIN MONOHYDRATE 500 MG CAPSULE (UD) PO SCH ×3 (06:19→17:25)
--- NOTE | 2017-05-28 08:56 | CONSULT ---
[facility] Psychiatric Consult - Data Date of interview: 05/28/17 Admission source: [facility] Identifying data: This is 32 yo divorded mother of one, homeless, unemployed, on SSI female with no psychiatric hospitalization history, with history of IV heroin, nicotine and ahsan dependence is here for detox. Reports currently smokes 10 cigarette per day. Substance Abuse History: - Smoking Cessation. Smoking history: Current every day smoker. Have you smoked in the past 12 months: Yes. Aproximately how many cigarettes per day: 10. Cigars Per Day: 0. Hx Chewing Tobacco Use: No. Initiated information on smoking cessation: Yes. 'Breaking Loose' booklet given : 05/27/17. - Substance & Tx. History. Hx Alcohol Use: No. Hx Substance Use: Yes. Substance Use Type: Cocaine, Heroin. Hx Substance Use Treatment: Yes ( [facility] 03/17/17 - 03/21/17). - Substances Abused. Cocaine. Route: Smoking. Frequency: 1-2 times per week. Amount used: " hit here and there ". Age of first use: 13. Date of Last Use: 05/25/17. Heroin. Route: Injection. Frequency: Daily. Amount used: 1 bundle. Age of first use: 19. Date of Last Use: 05/26/17 Medical History: Asthma, Hypothyroiditis history Psychiatric History: Patient reports no psychiatric hospitaliuzation history, reports no cyrrent psychiatric medications usage as well. As per chart history of PTSD, patient minimizing past psychiatric history Physical/Sexual Abuse/Trauma History: Denies Additional Comment: Observation. Detox Unit Care Protocol Mental Status Exam - Mental Status Exam Alert and Oriented to: Person Cognitive Function: Fair Patient Appearance: Unkempt Mood: Sad Affect: Flat Patient Behavior: Sedated Speech Pattern: Delayed Voice Loudness: Mildly Soft/Quiet Thought Process: Circumstantial Thought Disorder: Being Controlled Hallucinations: Denies Suicidal Ideation: Denies Homicidal Ideation: Denies Insight/Judgement: Fair Appetite: Weight loss Muscle strength/Tone: Mild Hypotonicity Gait/Station: Shuffling Additional Comments: Observation. Detox Unit Care Protocol Psychiatric Findings - Problem List ([place] 1, 2,3) (1) Opioid dependence with withdrawal Current Visit: Yes Status: Acute (2) Nicotine dependence Current Visit: Yes Status: Chronic Qualifiers: Nicotine product type: cigarettes Substance use status: uncomplicated Qualified Code(s): F17.210 - Nicotine dependence, cigarettes, uncomplicated (3) Cellulitis Current Visit: No Status: Acute Qualifiers: Site of cellulitis: extremity Site of cellulitis of extremity: upper extremity Laterality: right Qualified Code(s): L03.113 - Cellulitis of right upper limb Comment: hand (4) Cellulitis of neck Current Visit: No Status: Acute (5) Klonopin use disorder, mild Current Visit: No Status: Acute (6) Opioid dependence Current Visit: No Status: Acute (7) Post-traumatic stress syndrome Current Visit: No Status: Acute (8) Alcohol dependence Current Visit: No Status: Chronic (9) Cannabis abuse Current Visit: No Status: Chronic (10) Cannabis dependence, uncomplicated Current Visit: No Status: Chronic (11) Cocaine dependence Current Visit: No Status: Chronic Qualifiers: Substance use status: uncomplicated Qualified Code(s): F14.20 - Cocaine dependence, uncomplicated (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 Detox Unit Care Protocol
[2017-05-28] MEDS: LEVOTHYROXINE NA 112 MCG TABLET (FP) PO SCH (09:03)
[2017-05-28] MEDS ORDERED: METHADONE HCL 10 MG TABLET (FOR DETOX USE ONLY) PO ONE (10:00)
--- NOTE | 2017-05-28 10:17 | PN ---
[facility] COWS - Scale Resting Pulse: 0= [place] 80 or Below Sweatin= Chills/Flushing Restless Observation: 3= Extraneous Movement Pupil Size: 1= Pupils >than Normal Bone or Joint Aches: 2= Severe Diffuse Aches Runny Nose/ Eye Tearin= Runny Nose/Eyes GI Upset > 30mins: 3= Vomiting/Diarrhea Tremor Observation of Outstretched Hands: 2= Slight Tremor Visible Yawning Observation: 1= 1-2x During Session Anxiety or Irritability: 2=Irritable/Anxious Goose Flesh Skin: 0=Smooth Skin COWS Score: 17 BHS Progress Note (SOAP) Subjective: ALERT,IRRITABLE,ANXIOUS,INTERRUPTED SLEEP,TREMOR,PAIN IN THE BODY AND BACK Objective: 05/28/17 10:15 Vital Signs Temperature 98.1 F 05/28/17 06:00 Pulse Rate 72 05/28/17 06:00 Respiratory Rate 18 05/28/17 06:00 Blood Pressure 147/78 05/28/17 06:00 O2 Sat by Pulse Oximetry (%) EKG NSR,NORMAL ECG Laboratory Last Values Urine Color Yellow 05/27/17 22:10 Urine Appearance Cloudy 05/27/17 22:10 Urine pH 6.0 (5.0-8.0) D 05/27/17 22:10 Ur Specific [place] 1.019 (1.001-1.035) 05/27/17 22:10 Urine Protein Negative (NEGATIVE) 05/27/17 22:10 Urine Glucose (UA) Negative (NEGATIVE) 05/27/17 22:10 Urine Ketones 1+ (NEGATIVE) H 05/27/17 22:10 Urine Blood 2+ (NEGATIVE) H 05/27/17 22:10 Urine Nitrite Negative (NEGATIVE) 05/27/17 22:10 Urine Bilirubin Negative (NEGATIVE) 05/27/17 22:10 Urine Urobilinogen Negative mg/dL (0.2-1.0) 05/27/17 22:10 Ur Leukocyte Esterase Negative (NEGATIVE) 05/27/17 22:10 Urine WBC (Auto) 7 /hpf (3-5) 05/27/17 22:10 Urine RBC (Auto) 2 /hpf (0-3) 05/27/17 22:10 Ur Epithelial Cells Many /HPF (FEW) 05/27/17 22:10 Urine Bacteria Rare /hpf (NONE SEEN) 05/27/17 22:10 Urine Mucus Rare 05/27/17 22:10 LABS PENDING Assessment: 05/28/17 10:16 WITHDRAWAL SYMPTOM Plan: CONTINUE DETOX
[2017-05-28 10:23] LABS: CHLORIDE 105 mmol/L (98-107); SODIUM 135 mmol/L (136-145)
[2017-05-28 10:26] LABS: HEMATOCRIT 38.7 % (32.4-45.2); HEMOGLOBIN 12.5 GM/dL (10.7-15.3); MCH 25.5 pg (25.7-33.7); MCHC 32.3 g/dl (32.0-36.0); MEAN CELL VOLUME 79.2 fl (80-96); MEAN PLT VOLUME 7.9 fl (7.5-11.1); PLATELET COUNT 366 K/MM3 (134-434); WHITE BLOOD COUNT 9.9 K/mm3 (4.0-10.0)
[2017-05-28] MEDS: NICOTINE 14 MG/24 HOURS TOPICAL PATCH TD SCH (10:30)
[2017-05-28] MEDS: BACITRACIN 0.9 GM PACKET TP SCH ×2 (10:30→22:34)
[2017-05-28] MEDS: PRENATAL VITAMINS W/ FOLIC ACID TABLET (FP) PO SCH (10:30)
[2017-05-28 10:33] LABS: ALBUMIN 3.8 g/dl (3.4-5.0); ALK PHOS 62 U/L (45-117); ANION GAP 7 (8-16); BILIRUBIN,TOTAL 0.7 mg/dL (0.2-1.0); BLOOD UREA NITROGEN 11 mg/dL (7-18); CALCIUM 8.8 mg/dL (8.5-10.1); CO2 23 mmol/L (21-32); CREATININE 0.6 mg/dL (0.55-1.02); GLUCOSE,RANDOM 119 mg/dL (74-106); SGOT/AST 8 U/L (15-37); SGPT/ALT 15 U/L (12-78); TOT PROT 7.7 g/dl (6.4-8.2)
[2017-05-28] MEDS: ACETAMINOPHEN 325 MG TABLET (FP) PO PRN (10:33)
--- NOTE | 2017-05-28 11:53 | EKG ---
Test Reason : Blood Pressure : / mmHG Vent. Rate : 077 BPM Atrial Rate : 077 BPM P-R Int : 144 ms QRS Dur : 084 ms QT Int : 390 ms P-R-T Axes : 056 033 034 degrees QTc Int : 441 ms NORMAL SINUS RHYTHM NORMAL ECG WHEN COMPARED WITH ECG OF 17-MAR-2017 22:35, NO SIGNIFICANT CHANGE WAS FOUND Confirmed by AARON ENGEL MD ([id number]) on 05/28/2017 11:52:30 AM Referred By: Confirmed By:AARON ENGEL MD
[2017-05-28] MEDS: THIAMINE HCL 100 MG TABLET (FP) PO SCH (22:34)
[2017-05-29] MEDS: CEPHALEXIN MONOHYDRATE 500 MG CAPSULE (UD) PO SCH ×5 (00:13→23:02)
[2017-05-29] MEDS: diazePAM 5 MG TABLET PO PRN ×4 (05:58→22:07)
[2017-05-29] MEDS: LEVOTHYROXINE NA 112 MCG TABLET (FP) PO SCH (06:28)
[2017-05-29] MEDS ORDERED: METHADONE HCL 5 MG TABLET (FOR DETOX USE ONLY) PO ONE (10:00)
--- NOTE | 2017-05-29 10:19 | PN ---
[facility] COWS - Scale Resting Pulse: 1= [place] 81-100 Sweatin= Chills/Flushing Restless Observation: 3= Extraneous Movement Pupil Size: 1= Pupils >than Normal Bone or Joint Aches: 2= Severe Diffuse Aches Runny Nose/ Eye Tearin= Nasal Congestion GI Upset > 30mins: 3= Vomiting/Diarrhea Tremor Observation of Outstretched Hands: 2= Slight Tremor Visible Yawning Observation: 1= 1-2x During Session Anxiety or Irritability: 2=Irritable/Anxious Goose Flesh Skin: 0=Smooth Skin COWS Score: 17 BHS Progress Note (SOAP) Subjective: alert,irritable,anxious,interrupted sleep,pain in the back Objective: 05/29/17 10:15 Vital Signs Temperature 98.8 F 05/29/17 10:04 Pulse Rate 98 H 05/29/17 10:04 Respiratory Rate 16 05/29/17 10:04 Blood Pressure 136/73 05/29/17 10:04 O2 Sat by Pulse Oximetry (%) Laboratory Last Values WBC 9.9 K/mm3 (4.0-10.0) 05/28/17 07:00 RBC 4.90 M/mm3 (3.60-5.2) 05/28/17 07:00 Hgb 12.5 GM/dL (10.7-15.3) D 05/28/17 07:00 Hct 38.7 % (32.4-45.2) D 05/28/17 07:00 MCV 79.2 fl (80-96) L 05/28/17 07:00 MCH 25.5 pg (25.7-33.7) L 05/28/17 07:00 MCHC 32.3 g/dl (32.0-36.0) 05/28/17 07:00 RDW 17.0 % (11.6-15.6) H 05/28/17 07:00 Plt Count 366 K/MM3 (134-434) 05/28/17 07:00 MPV 7.9 fl (7.5-11.1) 05/28/17 07:00 Sodium 135 mmol/L (136-145) L 05/28/17 07:00 Potassium 4.0 mmol/L (3.5-5.1) 05/28/17 07:00 Chloride 105 mmol/L (98-107) 05/28/17 07:00 Carbon Dioxide 23 mmol/L (21-32) 05/28/17 07:00 Anion Gap 7 (8-16) L 05/28/17 07:00 BUN 11 mg/dL (7-18) 05/28/17 07:00 Creatinine 0.6 mg/dL (0.55-1.02) 05/28/17 07:00 Creat Clearance w eGFR > 60 (>60) 05/28/17 07:00 Random Glucose 119 mg/dL (74-106) H 05/28/17 07:00 Calcium 8.8 mg/dL (8.5-10.1) 05/28/17 07:00 Total Bilirubin 0.7 mg/dL (0.2-1.0) D 05/28/17 07:00 AST 8 U/L (15-37) L 05/28/17 07:00 ALT 15 U/L (12-78) 05/28/17 07:00 Alkaline Phosphatase 62 U/L (45-117) 05/28/17 07:00 Total Protein 7.7 g/dl (6.4-8.2) 05/28/17 07:00 Albumin 3.8 g/dl (3.4-5.0) 05/28/17 07:00 Urine Color Yellow 05/27/17 22:10 Urine Appearance Cloudy 05/27/17 22:10 Urine pH 6.0 (5.0-8.0) D 05/27/17 22:10 Ur Specific [place] 1.019 (1.001-1.035) 05/27/17 22:10 Urine Protein Negative (NEGATIVE) 05/27/17 22:10 Urine Glucose (UA) Negative (NEGATIVE) 05/27/17 22:10 Urine Ketones 1+ (NEGATIVE) H 05/27/17 22:10 Urine Blood 2+ (NEGATIVE) H 05/27/17 22:10 Urine Nitrite Negative (NEGATIVE) 05/27/17 22:10 Urine Bilirubin Negative (NEGATIVE) 05/27/17 22:10 Urine Urobilinogen Negative mg/dL (0.2-1.0) 05/27/17 22:10 Ur Leukocyte Esterase Negative (NEGATIVE) 05/27/17 22:10 Urine WBC (Auto) 7 /hpf (3-5) 05/27/17 22:10 Urine RBC (Auto) 2 /hpf (0-3) 05/27/17 22:10 Ur Epithelial Cells Many /HPF (FEW) 05/27/17 22:10 Urine Bacteria Rare /hpf (NONE SEEN) 05/27/17 22:10 Urine Mucus Rare 05/27/17 22:10 RPR Titer Nonreactive (NONREACTIVE) 05/28/17 07:00 Hepatitis C Antibody >11.0 s/co ratio (0.0-0.9) H 05/27/17 07:00 Assessment: 05/29/17 10:16 withdrawal symptom Plan: continue detox,follow up with [facility] for hepatitis c after discharge
[2017-05-29] MEDS: PRENATAL VITAMINS W/ FOLIC ACID TABLET (FP) PO SCH (10:25)
[2017-05-29] MEDS: BACITRACIN 0.9 GM PACKET TP SCH ×2 (10:26→22:06)
[2017-05-29] MEDS: NICOTINE 14 MG/24 HOURS TOPICAL PATCH TD SCH (10:26)
[2017-05-29] MEDS: hydrOXYzine PAMOATE 50 MG CAPSULE (FP) PO PRN (17:38)
[2017-05-29] MEDS: CYCLOBENZAPRINE HCL 10 MG TABLET (FP) PO PRN (18:43)
[2017-05-29] MEDS ORDERED: cloNIDine HCL 0.1 MG TABLET PO ONE (19:00)
[2017-05-29] MEDS: THIAMINE HCL 100 MG TABLET (FP) PO SCH (22:07)
[2017-05-30] MEDS: diazePAM 5 MG TABLET PO PRN ×2 (05:38→10:21)
[2017-05-30] MEDS: CEPHALEXIN MONOHYDRATE 500 MG CAPSULE (UD) PO SCH ×4 (05:38→23:05)
[2017-05-30] MEDS: hydrOXYzine PAMOATE 50 MG CAPSULE (FP) PO PRN ×2 (05:38→23:26)
[2017-05-30] MEDS: CYCLOBENZAPRINE HCL 10 MG TABLET (FP) PO PRN (05:38)
[2017-05-30] MEDS: LEVOTHYROXINE NA 112 MCG TABLET (FP) PO SCH (06:56)
--- NOTE | 2017-05-30 09:21 | PN ---
B[facility] Progress Note (SOAP) Subjective: ALERT,IRRITABLE,ANXIOUS,INTERRUPTED SLEEP,TREMOR,PAIN IN THE BODY AND BACK Objective: 05/30/17 09:20 Vital Signs Temperature 98.8 F 05/30/17 06:46 Pulse Rate 93 H 05/30/17 06:46 Respiratory Rate 18 05/30/17 06:46 Blood Pressure 120/65 05/30/17 06:46 O2 Sat by Pulse Oximetry (%) Assessment: 05/30/17 09:22 WITHDRAWAL SYMPTOM Plan: CONTINUE DETOX
[2017-05-30] MEDS ORDERED: METHADONE HCL 5 MG TABLET (FOR DETOX USE ONLY) PO ONE (10:00)
[2017-05-30] MEDS: PRENATAL VITAMINS W/ FOLIC ACID TABLET (FP) PO SCH (10:21)
[2017-05-30] MEDS: NICOTINE 14 MG/24 HOURS TOPICAL PATCH TD SCH (10:22)
[2017-05-30] MEDS: BACITRACIN 0.9 GM PACKET TP SCH ×2 (10:22→22:18)
[2017-05-30] MEDS: ACETAMINOPHEN 325 MG TABLET (FP) PO PRN (10:22)
[2017-05-30] MEDS: THIAMINE HCL 100 MG TABLET (FP) PO SCH (22:17)
[2017-05-31] MEDS: LEVOTHYROXINE NA 112 MCG TABLET (FP) PO SCH (07:19)
[2017-05-31] MEDS: CEPHALEXIN MONOHYDRATE 500 MG CAPSULE (UD) PO SCH ×4 (07:19→23:56)
--- NOTE | 2017-05-31 08:56 | PN ---
S Progress Note (SOAP) Subjective: feeling anxious requests psychiatric follow up feeling nausea no sweat no tremor denies joint aches Objective: 05/31/17 08:53 Vital Signs Temperature 97.6 F 05/31/17 06:00 Pulse Rate 82 05/31/17 06:00 Respiratory Rate 16 05/31/17 06:00 Blood Pressure 133/77 05/31/17 06:00 O2 Sat by Pulse Oximetry (%) Laboratory Last Values WBC 9.9 K/mm3 (4.0-10.0) 05/28/17 07:00 RBC 4.90 M/mm3 (3.60-5.2) 05/28/17 07:00 Hgb 12.5 GM/dL (10.7-15.3) D 05/28/17 07:00 Hct 38.7 % (32.4-45.2) D 05/28/17 07:00 MCV 79.2 fl (80-96) L 05/28/17 07:00 MCH 25.5 pg (25.7-33.7) L 05/28/17 07:00 MCHC 32.3 g/dl (32.0-36.0) 05/28/17 07:00 RDW 17.0 % (11.6-15.6) H 05/28/17 07:00 Plt Count 366 K/MM3 (134-434) 05/28/17 07:00 MPV 7.9 fl (7.5-11.1) 05/28/17 07:00 Sodium 135 mmol/L (136-145) L 05/28/17 07:00 Potassium 4.0 mmol/L (3.5-5.1) 05/28/17 07:00 Chloride 105 mmol/L (98-107) 05/28/17 07:00 Carbon Dioxide 23 mmol/L (21-32) 05/28/17 07:00 Anion Gap 7 (8-16) L 05/28/17 07:00 BUN 11 mg/dL (7-18) 05/28/17 07:00 Creatinine 0.6 mg/dL (0.55-1.02) 05/28/17 07:00 Creat Clearance w eGFR > 60 (>60) 05/28/17 07:00 Random Glucose 119 mg/dL (74-106) H 05/28/17 07:00 Calcium 8.8 mg/dL (8.5-10.1) 05/28/17 07:00 Total Bilirubin 0.7 mg/dL (0.2-1.0) D 05/28/17 07:00 AST 8 U/L (15-37) L 05/28/17 07:00 ALT 15 U/L (12-78) 05/28/17 07:00 Alkaline Phosphatase 62 U/L (45-117) 05/28/17 07:00 Total Protein 7.7 g/dl (6.4-8.2) 05/28/17 07:00 Albumin 3.8 g/dl (3.4-5.0) 05/28/17 07:00 Urine Color Yellow 05/27/17 22:10 Urine Appearance Cloudy 05/27/17 22:10 Urine pH 6.0 (5.0-8.0) D 05/27/17 22:10 Ur Specific [place] 1.019 (1.001-1.035) 05/27/17 22:10 Urine Protein Negative (NEGATIVE) 05/27/17 22:10 Urine Glucose (UA) Negative (NEGATIVE) 05/27/17 22:10 Urine Ketones 1+ (NEGATIVE) H 05/27/17 22:10 Urine Blood 2+ (NEGATIVE) H 05/27/17 22:10 Urine Nitrite Negative (NEGATIVE) 05/27/17 22:10 Urine Bilirubin Negative (NEGATIVE) 05/27/17 22:10 Urine Urobilinogen Negative mg/dL (0.2-1.0) 05/27/17 22:10 Ur Leukocyte Esterase Negative (NEGATIVE) 05/27/17 22:10 Urine WBC (Auto) 7 /hpf (3-5) 05/27/17 22:10 Urine RBC (Auto) 2 /hpf (0-3) 05/27/17 22:10 Ur Epithelial Cells Many /HPF (FEW) 05/27/17 22:10 Urine Bacteria Rare /hpf (NONE SEEN) 05/27/17 22:10 Urine Mucus Rare 05/27/17 22:10 RPR Titer Nonreactive (NONREACTIVE) 05/28/17 07:00 Hepatitis C Antibody >11.0 s/co ratio (0.0-0.9) H 05/27/17 07:00 lab noted Assessment: 05/31/17 08:54 mild withdrawal sx nausea Plan: medically supervised detox discontinue motrin begin zantac continue zofran sl prn
[2017-05-31] MEDS: ONDANSETRON *ODT* 4 MG TABLET SL PRN ×2 (09:24→18:34)
[2017-05-31] MEDS ORDERED: METHADONE HCL 10 MG TABLET (FOR DETOX USE ONLY) PO ONE (10:00)
[2017-05-31] MEDS: PRENATAL VITAMINS W/ FOLIC ACID TABLET (FP) PO SCH (10:20)
[2017-05-31] MEDS: BACITRACIN 0.9 GM PACKET TP SCH ×2 (10:20→22:36)
[2017-05-31] MEDS: hydrOXYzine PAMOATE 50 MG CAPSULE (FP) PO PRN ×2 (10:22→22:38)
[2017-05-31] MEDS: CYCLOBENZAPRINE HCL 10 MG TABLET (FP) PO PRN (10:22)
[2017-05-31] MEDS: RANITIDINE HCL 150 MG TABLET (FP) PO SCH ×2 (10:22→22:36)
[2017-05-31] MEDS: NICOTINE 14 MG/24 HOURS TOPICAL PATCH TD SCH (12:45)
[2017-05-31] MEDS: THIAMINE HCL 100 MG TABLET (FP) PO SCH (22:37)
[2017-06-01] MEDS ORDERED: hydrOXYzine PAMOATE 50 MG CAPSULE (FP) PO ONE (00:30)
[2017-06-01] MEDS ORDERED: METHADONE HCL 5 MG TABLET (FOR DETOX USE ONLY) PO ONE (06:00)
[2017-06-01] MEDS: CEPHALEXIN MONOHYDRATE 500 MG CAPSULE (UD) PO SCH (06:30)
[2017-06-01] MEDS: LEVOTHYROXINE NA 112 MCG TABLET (FP) PO SCH (06:31)
[2017-06-01 06:36] VITALS: BP 103/56; PULSE 73; TEMP 98.8
--- NOTE | 2017-06-01 08:44 | PN ---
BHS Progress Note Note: Pt. approached for psychiatric reconsultation. Pt. refused.
--- NOTE | 2017-06-01 08:48 | DS ---
[facility] Detox Discharge Summary Admission Date: 05/27/17 Discharge Date: 06/01/17 - History Present History: Opioid Dependence Additional Comments: follow up with after care program as arrangement Pertinent Past History: hypothyroidism asthma hepatitis c cellulitis nicotine dependence - Physical Exam Results Vital Signs: Vital Signs Temperature 98.8 F 06/01/17 06:00 Pulse Rate 73 06/01/17 06:00 Respiratory Rate 18 06/01/17 06:00 Blood Pressure 103/56 06/01/17 06:00 O2 Sat by Pulse Oximetry (%) - Treatment Hospital Course: Detox Protocol Followed, Detoxed Safely, Responded well, Discharged Condition Good Patient has Accepted a Rehab Referral to: declined - Medication Discharge Medications: Ambulatory Orders Albuterol Sulfate Inhaler - [Ventolin Hfa Inhaler -] 2 puff IH PRN PRN 12/08/16 Levothyroxine [Synthroid -] 1 tab PO DAILY 12/08/16 - Diagnosis (1) Opioid dependence with withdrawal Current Visit: Yes Status: Acute (2) GERD (gastroesophageal reflux disease) Current Visit: Yes Status: Chronic (3) Hypothyroid Current Visit: Yes Status: Chronic Qualifiers: Hypothyroidism type: unspecified Qualified Code(s): E03.9 - Hypothyroidism , unspecified (4) Cellulitis Current Visit: No Status: Acute Qualifiers: Site of cellulitis: extremity Site of cellulitis of extremity: upper extremity Laterality: right Qualified Code(s): L03.113 - Cellulitis of right upper limb (5) Asthma Current Visit: No Status: Chronic Qualifiers: Asthma severity: unspecified severity Asthma persistence: intermittent Asthma complication type: uncomplicated Qualified Code(s): J45.20 - Mild intermittent asthma, uncomplicated (6) Nicotine dependence Current Visit: Yes Status: Chronic Qualifiers: Nicotine product type: cigarettes Substance use status: uncomplicated Qualified Code(s): F17.210 - Nicotine dependence, cigarettes, uncomplicated (7) Hepatitis C Current Visit: Yes Status: Acute - AMA Did Patient Leave Against Medical Advice: No
== END 2017-06-01 09:27 | disposition home or self-care (01) | DRG 773 ==
LOC: YASAS 12:23 → Y6N 17:00
PROVIDERS: ADMIT Internal Medicine; ATTEND Internal Medicine
PROC: HZ2ZZZZ Detoxification Services for Substance Abuse Treatment (ICD-10-PCS; principal; 2017-05-27)
DX: F11.23 Opioid dependence with withdrawal (principal); F14.20 Cocaine dependence, uncomplicated; F17.210 Nicotine dependence, cigarettes, uncomplicated; E03.9 Hypothyroidism, unspecified; K21.9 Gastro-esophageal reflux disease without esophagitis; L03.113 Cellulitis of right upper limb; J45.20 Mild intermittent asthma, uncomplicated; B18.2 Chronic viral hepatitis C; R11.0 Nausea
CPT/HCPCS: 36415; 80053; 81003; 81015; 82947; 85027; 86593; 86803; 87522; 93005; 93010; J0735